=== PATIENT | male | born 1935 | race African-American/Black ===

== ENCOUNTER 2017-08-17 22:09 | Emergency (ER) | payer OTHER, MEDICAID ==
[~2017-08-17] VITALS: Ht 167.6 cm; Wt 53.1 kg
[~2017-08-17 22:09] MED LIST: ACETAMINOPHEN325 M1 ORAL; ATORVASTATIN CA20 MG ORAL; COZAAR50 MG ORAL; DONEPEZIL HCL10 MG ORAL; ECOTRIN81 MG ORAL; FLORINEF0.1 MG ORAL; HYDROXYZINE HCL25 M1 PO; LISINOPRIL10 MG ORAL; MIDODRINE HCL ORAL; MULTIVITAMINS1 EAC2 ORAL; PROSCAR5 MG ORAL; RANITIDINE HCL150 MG ORAL; SINEMET 25-1001 EAC1 ORAL; TAMSULOSIN HCL0.4 MG ORAL; XARELTO10 MG ORAL; [UNRECOGNIZED DRUG - OTHER]
[2017-08-17] MEDS ORDERED: SEROQUEL25 MG ORAL (22:30)
[2017-08-17 22:31] VITALS: BP 149/80
--- NOTE | 2017-08-17 22:54 | Emergency Room Report ---
History of Present Illness General Chief Complaint: Malfunctioning Gastric Tube Source: Family Member Present Illness HPI This is 81-year-old male with multiple medical problem. He has history of dementia also. He has a G-tube. Is brought in by his son for dislodgment of the G-tube. This happen multiple time the past. No bleeding. No other trauma. Onset today. Allergies: Coded Allergies: No Known Allergies (Verified , 03/19/15) Patient History Past Medical History: see triage record, old chart reviewed Past Surgical History: other Pertinent Family History: none Social History: Denies: smoking Immunizations: other Reviewed Nursing Documentation: PMH: Agreed, PSxH: Agreed Nursing Documentation-PMH Past Medical History: No History, Except For Hx Hypertension: Yes Hx Cancer: Yes - Laryngeal cancer Hx Gastrointestinal Problems: Yes - gtube History Of Psychiatric Problem: No - Parkinson's, Dementia Hx Dementia: Yes Hx Parkinson's Disease: Yes Hx Head Trauma: Yes - 2007 Hx Memory Loss: Yes Hx Dizziness: Yes Hx Syncope: Yes Review of Systems Eye: Denies: eye pain, blurred vision ENT: Denies: ear pain, nose congestion, throat swelling Respiratory: Denies: cough, shortness of breath Cardiovascular: Denies: chest pain, palpitations Gastrointestinal: Denies: abdominal pain, diarrhea, nausea, vomiting Musculoskeletal: Denies: back pain, joint pain Skin: Denies: rash Neurological: Denies: headache, numbness Endocrine: Denies: increased thirst, increased urine Hematologic/Lymphatic: Denies: easy bruising All Other Systems: negative except mentioned in HPI Physical Exam Vital Signs Date Time Temp Pulse Resp B/P (MAP) Pulse Ox O2 Delivery O2 Flow Rate FiO2 08/17/17 22:17 98.2 90 16 149/80 99 Room Air vitals normal Sp02 EP Interpretation: reviewed, normal General Appearance: well appearing, no apparent distress, alert, Chronically Ill Head: normocephalic, atraumatic Eyes: bilateral eye PERRL, bilateral eye EOMI ENT: hearing grossly normal, normal pharynx Neck: full range of motion, supple, no meningismus Respiratory: chest non-tender, lungs clear, normal breath sounds Cardiovascular #1: regular rate, rhythm, no murmur Gastrointestinal: normal bowel sounds, non tender, no mass, no organomegaly, no bruit, non-distended, other - G-tube siteclean. No bleeding. Musculoskeletal: back normal Neurologic: grossly normal Psychiatric: mood/affect normal Skin: warm/dry Procedures Additional Procedure Procedure Narrative Procedure: G-tube placement Indication: G-tube dislodgment Description: I placed a 20 [place] G-tube in patient without difficulty. Tolerated seizure without a problem. Balloon inflated. Stopcock inserted to Gtube. KUB with gastrograffin ordered. Medical Decision Making Diagnostic Impression: Primary Impression: Encounter for feeding tube placement Additional Impression: Malfunction of gastrostomy tube ER Course Patient with dislodgment of his G-tube. No complication. Inserted without problem. No extravasation on KUB. We'll discharge home. Other X-Ray Diagnostic Results Other X-Ray Diagnostic Results : X-Ray ordered: KUB # of Views/Limited Vs Complete: 1 View Indication: Other - G-tube placement EP Interpretation: Yes Interpretation: no dislocation, no soft tissue swelling, no fractures, other - No extravasation Impression: Other - G-tube in satisfactory position Electronically Signed by: Electronically signed by Dread Mireles MD Last Vital Signs Date Time Temp Pulse Resp B/P (MAP) Pulse Ox O2 Delivery O2 Flow Rate FiO2 08/17/17 22:31 98.2 90 16 149/80 99 Room Air Status: improved Disposition: HOME, SELF-CARE Condition: Stable Patient Instructions: Gastrostomy Tube Home Guide, Adult Additional Instructions: Followup with your doctor as needed. Return for any concern. DREAD MIRELES M.D. Aug 17, 2017 22:54
[2017-08-17 23:21] VITALS: BP 131/72
[2017-08-17 23:26] VITALS: BP 131/72
--- NOTE | 2017-08-18 09:41 | Diagnostic Imaging Report ---
Indication: Status post gastrostomy tube placement Technique: Supine abdomen following water-soluble contrast injection via the gastrostomy tube. Comparison: 10/23/16 Findings: There is contrast within the stomach confirming intraluminal positioning of the gastrostomy. There is no obvious extravasation. Bowel gas pattern is nonobstructive. Impression: Contrast within the stomach confirming intraluminal positioning of the gastrostomy.
== END 2017-08-17 23:26 | disposition home or self-care (01) ==
LOC: EMR 22:50
DX: Z43.1 Encounter for attention to gastrostomy (principal); I10 Essential (primary) hypertension; G31.83 Neurocognitive disorder with Lewy bodies; F02.80 Dementia in other diseases classified elsewhere, unspecified severity, without behavioral disturbance, psychotic disturbance, mood disturbance, and anxiety; Z85.21 Personal history of malignant neoplasm of larynx
CPT/HCPCS: 43760; 74000; 99284

== ENCOUNTER 2018-01-20 10:45 | Emergency (ER) | payer OTHER, MEDICAID ==
[~2018-01-20] VITALS: Ht 167.6 cm; Wt 54.4 kg
[~2018-01-20 10:45] MED LIST changes: +SEROQUEL25 MG ORAL
[2018-01-20 11:04] VITALS: BP 151/78
--- NOTE | 2018-01-20 11:26 | Emergency Room Report ---
History of Present Illness General Chief Complaint: General Complaint Source: Family Member, Caregiver Present Illness HPI [id number] non-verbal pulled out Gtube [address] in stoma Patient was fed this morning Son states he is "very healthy", no other complaints Non verbal at baseline No vomiting, diarrhea, fever/chills Here multiple times previously for Gtube replacement Allergies: Coded Allergies: No Known Allergies (Verified , 03/19/15) Patient History Past Medical History: see triage record, old chart reviewed Past Surgical History: none Pertinent Family History: none Social History: Denies: smoking, alcohol use, drug use Immunizations: UTD Reviewed Nursing Documentation: PMH: Agreed, PSxH: Agreed Nursing Documentation-PMH Past Medical History: No History, Except For Hx Hypertension: Yes Hx Cancer: Yes - Laryngeal cancer Hx Gastrointestinal Problems: Yes - gtube Hx Dementia: Yes Hx Parkinson's Disease: Yes Hx Head Trauma: Yes - 2007 Hx Memory Loss: Yes Hx Dizziness: Yes Hx Syncope: Yes Review of Systems All Other Systems: limited - non-verbal Physical Exam Vital Signs Date Time Temp Pulse Resp B/P (MAP) Pulse Ox O2 Delivery O2 Flow Rate FiO2 01/20/18 10:59 97.6 67 24 151/78 97 Room Air 97.5 Sp02 EP Interpretation: reviewed, normal General Appearance: normal inspection, well appearing, no apparent distress, alert, GCS 15, non-toxic Head: normocephalic, atraumatic Eyes: bilateral eye PERRL, bilateral eye EOMI ENT: normal ENT inspection, hearing grossly normal, normal pharynx, no angioedema, TMs + canals normal, uvula midline, moist mucus membranes Neck: normal inspection, full range of motion, supple, thyroid normal, no meningismus, no bony tend Respiratory: normal inspection, lungs clear, normal breath sounds, no rhonchi, no respiratory distress, no retraction, no accessory muscle use, no wheezing, speaking full sentences Cardiovascular #1: regular rate, rhythm, no edema, no JVD, normal capillary refill Gastrointestinal: normal inspection, normal bowel sounds, non tender, soft, no mass, no peritonitis, non-distended, no guarding, no hernia, no pulsatile mass, other - GTube stoma visualized, is patent. No active bleeding or site cellulitis Genitourinary: no CVA tenderness Musculoskeletal: normal inspection, back normal, normal range of motion, no calf tenderness, pelvis stable, Jerardo's Sign negative Neurologic: normal inspection, alert, oriented x3, responsive, paper cone machine tender III-XII nml as tested, motor strength/tone normal, cerebellar normal, normal gait, speech normal Psychiatric: normal inspection, judgement/insight normal, mood/affect normal, no suicidal/homicidal ideation, no delusions Skin: normal inspection, normal color, no rash Lymphatic: normal inspection, no adenopathy Procedures Additional Procedure Procedure Narrative Patient positioned at 45 degrees Bandage removed Area cleaned 20F Gtube placed easily with feeds coming out of tube 20cc balloon inflated Abd xray confirmed tube placement Medical Decision Making Diagnostic Impression: Primary Impression: Attention to G-tube ER Course VSS, afebrile Well appearing, not septic Gtube replaced ER course: Patient has remained stable during ED stay. Disposition: Patient is to be discharged to home. Patient is instructed to follow up with their primary care doctor within 5 days. Strict return precautions discussed with patient such as fever, chills, worsening/severe pain, nausea, vomiting, which may indicate severe illness. Patient verbalizes understanding and agrees with plan. Please note that this Emergency Department Report was dictated using [employer]thersysentry level administrative assistant technology software, occasionally this can lead to erroneous entry secondary to interpretation by the dictation equipment Other X-Ray Diagnostic Results Other X-Ray Diagnostic Results : X-Ray ordered: Abdomen # of Views/Limited Vs Complete: 1 View Indication: Other - Gtube replacement EP Interpretation: Yes Interpretation: nonspecific bowel gas, no sbo, other - Gtube in stomach Impression: No acute disease Electronically Signed by: Dr Pamela Sullivan mD Last Vital Signs Date Time Temp Pulse Resp B/P (MAP) Pulse Ox O2 Delivery O2 Flow Rate FiO2 01/20/18 11:04 97.6 67 18 151/78 Room Air 97.6 01/20/18 10:59 97 Referrals: [facility],REFERRING (PCP) PAMELA SULLIVAN M.D. Jan 20, 2018 11:26
[2018-01-20 11:38] VITALS: BP 152/63
--- NOTE | 2018-01-20 11:47 | Diagnostic Imaging Report ---
Indication: Gastric ostomy tube placement Technique: XRAY Abdomen 1v Comparison: 08/17/2017. Findings: Single view of the abdomen with contrast injected in a gastrostomy tube fills the stomach and small bowel. Bowel gas pattern is normal. Degenerative changes noted in the spine. Impression: Gastrostomy tube is in the stomach. There is no leak.
== END 2018-01-20 11:42 | disposition home or self-care (01) ==
LOC: EMR 11:15
DX: Z43.1 Encounter for attention to gastrostomy (principal); I10 Essential (primary) hypertension; Z85.21 Personal history of malignant neoplasm of larynx; G20 Parkinson's disease; F02.80 Dementia in other diseases classified elsewhere, unspecified severity, without behavioral disturbance, psychotic disturbance, mood disturbance, and anxiety
CPT/HCPCS: 43760; 74018; 99284

== ENCOUNTER 2018-08-06 15:49 | Inpatient (IN) | payer OTHER, MEDICAID ==
[~2018-08-06] VITALS: Ht 165.1 cm; Wt 76.0 kg
[2018-08-06] VITALS (8 sets, daily range): BP systolic 83–125; BP diastolic 54–84
[2018-08-06] MEDS ORDERED: QUETIAPINE FUMA25 MG ORAL (16:00)
[2018-08-06] MEDS ORDERED: SINEMET 25-1001 EAC1 ORAL (16:00)
[2018-08-06] MEDS ORDERED: NS 1000ml 1,700 ML IVLG ONE (16:15)
[2018-08-06] MEDS ORDERED: Acetaminophen 650mg/20.3ml NG ONE (16:30)
--- NOTE | 2018-08-06 16:35 | Diagnostic Imaging Report ---
Indication: Dyspnea Comparison: 06/10/2015 A single view chest radiograph was obtained. Findings: There is a hazy opacity involving the left lung base consistent with a pleural effusion probably moderate to large. The heart is mildly enlarged but probably stable. The right lung is clear. IMPRESSION: Development of a moderate to large left pleural effusion
[2018-08-06 16:37] LABS: HEMATOCRIT 36.6 % (42.0-52.0); HEMOGLOBIN 12.2 G/DL (14.2-18.0); MEAN CORPUSCULAR VOLUME 86 FL (80-99); PLATELET COUNT 507 K/UL (150-450); RED BLOOD COUNT 4.27 M/UL (4.70-6.10); RED CELL DISTRIBUTION WIDTH 13.2 % (11.6-14.8); WHITE BLOOD COUNT 21.5 K/UL (4.8-10.8)
[2018-08-06] MEDS: Cefepime HCl 1 GM in NS 55 ML IV SCH ×2 (16:46→17:52)
[2018-08-06 17:11] LABS: ANION GAP 10 mmol/L (5-15); BLOOD UREA NITROGEN 43 mg/dL (7-18); CALCIUM 9.6 MG/DL (8.5-10.1); CARBON DIOXIDE 33 MMOL/L (21-32); CHLORIDE 94 MMOL/L (98-107); CREATININE 1.7 MG/DL (0.55-1.30); SODIUM 137 MMOL/L (136-145)
[2018-08-06 17:36] LABS: ALANINE AMINOTRANSFERASE 53 U/L (12-78); ALBUMIN 1.5 G/DL (3.4-5.0); ALBUMIN/GLOBULIN RATIO 0.2 (1.0-2.7); ALKALINE PHOSPHATASE 138 U/L (46-116); ASPARTATE AMINO TRANSFERASE 78 U/L (15-37); CKMB < 0.5 NG/ML (0.0-3.6); CREATINE KINASE 40 U/L (26-308)
[2018-08-06] MEDS ORDERED: Succinylcholine 20mg/ml 10ml vial ONE (17:50)
[2018-08-06] MEDS ORDERED: Etomidate 40mg/20ml Inj IV ONE (17:50)
[2018-08-06] MEDS ORDERED: Acetaminophen 650 MG SUPP RECTAL ONE (19:00)
[2018-08-06 20:25] LABS: APPEARANCE,URINE CLOUDY; BILIRUBIN, URINE 1+ (NEGATIVE); GLUCOSE, URINE (UA) NEGATIVE (NEGATIVE); KETONES,URINE 1+ (NEGATIVE); LEUKOCYTE ESTERASE ,URINE 2+ (NEGATIVE); NITRITE,URINE POSITIVE (NEGATIVE); PH,URINE 5 (4.5-8.0); PROTEIN,URINE 3+ (NEGATIVE); UROBILINOGEN,URINE 4 MG/DL (0.0-1.0)
[2018-08-06 20:27] LABS: COLOR,URINE AMBER
--- NOTE | 2018-08-06 22:22 | Emergency Room Report ---
History of Present Illness General Chief Complaint: Altered Level of Consciousness Source: Family Member Present Illness HPI This patient is brought in from home by his sons. He has a history of Parkinson 's disease and laryngeal cancer. He is unable to swallow and has a PEG tube. Today, the son noticed that he was not his usual self or alertness. Also, he vomited feeding tube fluid. He states he was less responsive. There are no other complaints. The patient is unable to give a history. Allergies: Coded Allergies: No Known Allergies (Verified , 03/19/15) Patient History Past Medical History: see triage record, CVA/TIA, dementia, other - Parkinson' s Dz, Laryngeal CA Past Surgical History: other - PEG, laryngectomy Social History: Denies: smoking, alcohol use, drug use Reviewed Nursing Documentation: PMH: Agreed; PSxH: Agreed Nursing Documentation-PMH Past Medical History: No History, Except For Hx Cardiac Problems: Yes - hypercholesteremia Hx Hypertension: Yes Hx Cancer: Yes - Laryngeal cancer Hx Gastrointestinal Problems: Yes - prostate problems Hx Neurological Problems: Yes - Alzheimers Hx Dementia: Yes Hx Parkinson's Disease: Yes Hx Head Trauma: Yes - 2007 Hx Memory Loss: Yes Hx Dizziness: Yes Hx Syncope: Yes Review of Systems All Other Systems: negative except mentioned in HPI Physical Exam Vital Signs Date Time Temp Pulse Resp B/P (MAP) Pulse Ox O2 Delivery O2 Flow Rate FiO2 08/06/18 15:54 100.3 159 24 83/55 92 Room Air 100.2 08/06/18 16:40 4.0 36 Sp02 EP Interpretation: reviewed, normal General Appearance: no apparent distress, GCS 15, non-toxic, Chronically Ill Head: normocephalic, atraumatic Eyes: bilateral eye normal inspection ENT: normal pharynx, no angioedema Neck: full range of motion, supple/symm/no masses Respiratory: chest non-tender, no retraction, no accessory muscle use, crackles , rhonchi, other - Tachypnea Cardiovascular #1: no edema, tachycardia Gastrointestinal: normal bowel sounds, non tender, soft, non-distended, no guarding, no rebound, other - PEG in place Rectal: deferred Musculoskeletal: normal inspection, other - At baseline Neurologic: alert, grossly normal - Non-focal Psychiatric: mood/affect normal Skin: warm/dry, well hydrated, other - See RN skin exam Medical Decision Making Diagnostic Impression: Primary Impression: Severe sepsis Additional Impressions: Pleural effusion Fever Lactic acid acidosis DONNIE (acute kidney injury) UTI (urinary tract infection) ER Course The patient presents with severe sepsis. The patient presented with tachycardia with a heart rate in the 160s. He was also hypotensive with systolic blood pressures in the 70s and low 80s. He was tachypneic with a rapid respiratory rate and increased work of breathing. He was given aggressive IV fluids and broad-spectrum antibiotics. He did have a decline in his heart rate and his blood pressure was responsive to IV fluid resuscitation. He is found to have a pleural effusion. I'm unsure if this is infectious in etiology versus malignant an etiology. This patient has a very poor prognosis. He is admitted to the ICU. This patient is critically ill. This patient required complex medical decision- making, aggressive intervention, extensive laboratory workup and monitoring. Critical care time: 40 minutes. Laboratory Tests Test 08/06/18 16:10 08/06/18 17:30 08/06/18 19:22 08/06/18 21:49 White Blood Count 21.5 K/UL (4.8-10.8) H Red Blood Count 4.27 M/UL (4.70-6.10) L Hemoglobin 12.2 G/DL (14.2-18.0) L Hematocrit 36.6 % (42.0-52.0) L Mean Corpuscular Volume 86 FL (80-99) Mean Corpuscular Hemoglobin 28.5 PG (27.0-31.0) Mean Corpuscular Hemoglobin Concent 33.3 G/DL (32.0-36.0) Red Cell Distribution Width 13.2 % (11.6-14.8) Platelet Count 507 K/UL (150-450) H Mean Platelet Volume 5.5 FL (6.5-10.1) L Neutrophils (%) (Auto) % (45.0-75.0) Lymphocytes (%) (Auto) % (20.0-45.0) Monocytes (%) (Auto) % (1.0-10.0) Eosinophils (%) (Auto) % (0.0-3.0) Basophils (%) (Auto) % (0.0-2.0) Differential Total Cells Counted 100 Neutrophils % (Manual) 79 % (45-75) H Lymphocytes % (Manual) 8 % (20-45) L Monocytes % (Manual) 4 % (1-10) Eosinophils % (Manual) 0 % (0-3) Basophils % (Manual) 2 % (0-2) Band Neutrophils 7 % (0-8) Platelet Estimate Increased H Platelet Morphology Normal Red Blood Cell Morphology Normal Sodium Level 137 MMOL/L (136-145) Potassium Level 4.0 MMOL/L (3.5-5.1) Chloride Level 94 MMOL/L (98-107) L Carbon Dioxide Level 33 MMOL/L (21-32) H Anion Gap 10 mmol/L (5-15) Blood Urea Nitrogen 43 mg/dL (7-18) H Creatinine 1.7 MG/DL (0.55-1.30) H Estimate Glomerular Filtration Rate mL/min (>60) Glucose Level 257 MG/DL (74-106) H Lactic Acid Level 6.70 mmol/L (0.4-2.0) H 4.10 mmol/L (0.66-2.22) H Calcium Level 9.6 MG/DL (8.5-10.1) Total Bilirubin 1.0 MG/DL (0.2-1.0) Aspartate Amino Transferase (AST) 78 U/L (15-37) H Alanine Aminotransferase (ALT) 53 U/L (12-78) Alkaline Phosphatase 138 U/L (46-116) H Total Creatine Kinase 40 U/L (26-308) Creatine Kinase MB < 0.5 NG/ML (0.0-3.6) Creatine Kinase MB Relative Index 1.2 Troponin I 0.000 ng/mL (0.000-0.056) Total Protein 8.7 G/DL (6.4-8.2) H Albumin 1.5 G/DL (3.4-5.0) L Globulin 7.2 g/dL Albumin/Globulin Ratio 0.2 (1.0-2.7) L Urine Color Jeanette Urine Appearance Cloudy Urine pH 5 (4.5-8.0) Urine Specific [place] 1.020 (1.005-1.035) Urine Protein 3+ (NEGATIVE) H Urine Glucose (UA) Negative (NEGATIVE) Urine Ketones 1+ (NEGATIVE) H Urine Blood 5+ (NEGATIVE) H Urine Nitrite Positive (NEGATIVE) H Urine Bilirubin 1+ (NEGATIVE) H Urine Ictotest Positive (NEGATIVE) Urine Urobilinogen 4 MG/DL (0.0-1.0) H Urine Leukocyte Esterase 2+ (NEGATIVE) H Urine RBC Tntc /HPF (0 - 0) H Urine WBC 5-10 /HPF (0 - 0) H Urine Squamous Epithelial Cells Occasional /LPF Urine Bacteria Moderate /HPF (NONE) H Arterial Blood pH 7.517 (7.350-7.450) Arterial Blood Partial Pressure CO2 36.3 mmHg (35.0-45.0) Arterial Blood Partial Pressure O2 80.2 mmHg (75.0-100.0) Arterial Blood HCO3 28.8 mmol/L (22.0-26.0) H Arterial Blood Oxygen Saturation 96.0 % (92.0-98.0) Arterial Blood Base Excess 5.6 Malvin Test Positive EKG Diagnostic Results Rate: tachycardiac Rhythm: other - S.tachycardia ST Segments: no acute changes Rhythm Strip Diag. Results EP Interpretation: yes Rate: 150's Rhythm: no PVC's, no ectopy, other - S.tachycardia Chest X-Ray Diagnostic Results Chest X-Ray Diagnostic Results : Chest X-Ray Ordered: Yes # of Views/Limited/Complete: 1 View Indication: Shortness of Breath Interpretation: other - Large L. pleural effusion Impression: Other - See above Electronically Signed by: Kristopher Other X-Ray Diagnostic Results Other X-Ray Diagnostic Results : X-Ray ordered: AAS # of Views/Limited Vs Complete: Complete EP Interpretation: Yes Interpretation: nonspecific bowel gas Impression: No acute disease Electronically Signed by: Kristopher Last Vital Signs Date Time Temp Pulse Resp B/P (MAP) Pulse Ox O2 Delivery O2 Flow Rate FiO2 08/06/18 21:50 117 35 100 Full Face 28 08/06/18 21:00 119/84 (96) 08/06/18 20:00 97.9 97.9 08/06/18 17:13 4.0 Disposition: ADMITTED INPATIENT Condition: Critical Referrals: [facility],REFERRING (PCP) Elisa Zhang DO Aug 06, 2018 22:22
[2018-08-06] MEDS: Piperacillin/Tazobactam 3.375 GM in D5W 110 ML IVPB SCH (22:54)
[2018-08-06] MEDS: Heparin 5000 units/ml inj SUBQ SCH (22:57)
[2018-08-06] MEDS: D5NS 1,000 ML IV SCH (22:58)
[2018-08-07] VITALS (24 sets, daily range): BP systolic 99–155; BP diastolic 41–96
[2018-08-07] MEDS: Vancomycin 1250mg/D5W 250ml 250 ML IVPB SCH ×2 (00:32→23:45)
[2018-08-07 06:02] LABS: HEMATOCRIT 27.5 % (42.0-52.0); HEMOGLOBIN 9.2 G/DL (14.2-18.0); MEAN CORPUSCULAR VOLUME 86 FL (80-99); PLATELET COUNT 370 K/UL (150-450); RED BLOOD COUNT 3.21 M/UL (4.70-6.10); RED CELL DISTRIBUTION WIDTH 13.3 % (11.6-14.8)
[2018-08-07 06:07] LABS: WHITE BLOOD COUNT 26.8 K/UL (4.8-10.8)
--- NOTE | 2018-08-07 06:15 | Consultation ---
DATE OF CONSULTATION: 08/06/2018 CONSULTING PHYSICIAN: Jeremy Fried M.D. REQUESTING PHYSICIAN: Harjeet Baptiste M.D. REASON FOR CONSULTATION: Severe sepsis with shock, tachycardia, and lactic acidosis. HISTORY OF PRESENT ILLNESS: This elderly male resides with family members and was noted to be increasingly withdrawn and lethargic today. He had episodes of vomiting and apparently seem somewhat short of breath. He did not have any noted fevers, chills, cough, or complaints of chest pain. He was brought to the emergency room where he was noted to have abnormal vital signs including blood pressure of 83/55, heart rate of 159, and respiratory rate of 24 with a temperature of 100.3. He was volume resuscitated with IV access obtained and placed on BiPAP support. He was admitted to the intensive care unit based on further diagnostic studies. I have been asked to assist with further cardiovascular care. 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 ALLERGIES: None. FAMILY HISTORY: Noncontributory. SOCIAL HISTORY: Prior use of alcohol in moderate quantities. No smoking or substance abuse. MEDICATIONS: Prior to admission, reviewed and reconciled. REVIEW OF SYSTEMS: Otherwise not obtainable from the patient. Cardiac history is notable for an echocardiogram done last several years ago revealed normal ejection fraction, mild degenerative valve disease with concentric hypertrophy, and a diastolic relaxation abnormality. There is no history of flow-limiting coronary artery disease or sustained arrhythmias. The patient is presumably on anticoagulation for history of blood clots. PHYSICAL EXAMINATION: VITAL SIGNS: Initial vitals as noted above. Subsequently, blood pressure 119/84, pulse 105, and respirations 30. HEENT: Male pattern balding. Temporal wasting. Pale conjunctivae. Anicteric sclerae. Dry mucous membranes. NECK: Supple. Some accessory muscle use. LUNGS: With diminished breath sounds on the left. Scattered rhonchi. CARDIAC: Regular rhythm. Rapid rate. Normal S1 and S2 with a fourth heart sound. ABDOMEN: Soft and nontender with G-tube intact. EXTREMITIES: Without edema. SKIN: Dry. NEUROLOGIC: The patient is responsive to name, but presently nonverbal. RADIOLOGIC AND LABORATORY DATA: EKG reveals sinus tachycardia. No acute ST changes. Chest x-ray with large left pleural effusion and possible infiltrate. Troponin is 0. Albumin 1.5. White count 21.5 and hemoglobin 12.2. Sodium 137, potassium 4, bicarbonate 33, BUN 43, and creatinine 1.7. Lactic acid 6.7 and repeated 4.1. Urinalysis with 2+ leukocyte esterase, too numerous to count red cells, and 5 to 10 white cells. ABG - pH 7.51, pCO2 of 86, and pO2 of 80. IMPRESSION: 1. Sepsis with hypovolemic shock. 2. Secondary sinus tachycardia. 3. Lactic acidosis, probable pneumonia with parapneumonic effusion. 4. History of Parkinson disease. 5. Coagulopathy due to rivaroxaban therapy presumably for history of deep venous thrombosis. 6. Parkinson disease's with dementia. 7. Dysphagia with gastrostomy tube. 8. History of benign prostatic hypertrophy. 9. History of adrenocortical insufficiency, on Florinef. 10. Acute respiratory insufficiency with hypoxia and metabolic alkalosis. PLAN: 1. Volume resuscitation. 2. BiPAP support. 3. Hold rivaroxaban. 4. Possible thoracentesis. 5. Maintain Florinef. 6. Continue Sinemet. 7. Stress ulcer prophylaxis. 8. DVT prophylaxis with subcutaneous heparin while off rivaroxaban. 9. Hold feedings for now. 10. Metabolic profile. 11. Condition critical. 12. Prognosis is guarded. 13. Serial lactic acid evaluations have been requested. Jeremy Fried M.D. DR: WHITNEY JOB#: [id number] CC:
[2018-08-07 06:26] LABS: ALANINE AMINOTRANSFERASE 79 U/L (12-78); ALBUMIN 1.3 G/DL (3.4-5.0); ALBUMIN/GLOBULIN RATIO 0.2 (1.0-2.7); ALKALINE PHOSPHATASE 106 U/L (46-116); ANION GAP 8 mmol/L (5-15); ASPARTATE AMINO TRANSFERASE 62 U/L (15-37); BLOOD UREA NITROGEN 49 mg/dL (7-18); CALCIUM 8.4 MG/DL (8.5-10.1); CARBON DIOXIDE 31 MMOL/L (21-32); CHLORIDE 101 MMOL/L (98-107); CREATININE 1.8 MG/DL (0.55-1.30); POTASSIUM 3.5 MMOL/L (3.5-5.1); SODIUM 140 MMOL/L (136-145)
[2018-08-07] MEDS: Tamsulosin 0.4mg cap ORAL SCH ×2 (06:40→21:14)
[2018-08-07] MEDS: Piperacillin/Tazobactam 3.375 GM in D5W 110 ML IVPB SCH ×3 (06:41→21:34)
[2018-08-07] MEDS: D5NS 1,000 ML IV SCH ×2 (06:43→16:30)
[2018-08-07] MEDS: Heparin 5000 units/ml inj SUBQ SCH ×2 (08:11→21:17)
--- NOTE | 2018-08-07 08:31 | Diagnostic Imaging Report ---
Indication: Pain, vomiting Technique: Supine and upright views of the abdomen Comparison: January 20, 2018 gastrostomy study Findings: There is a gastrostomy in place. Bowel gas pattern is unremarkable. No gaseous distention of large or small bowel, significant air-fluid levels, or free intraperitoneal air. No unusual masses or calcifications Impression: No acute process
[2018-08-07] MEDS: Pantoprazole Inj IVP SCH (08:45)
--- NOTE | 2018-08-07 09:00 | History & Physical ---
History and Physical History & Physicial dict pneumonia w septic shock L effusion dementia PD Harjeet Baptiste MD Aug 07, 2018 09:00
[2018-08-07 09:30] LABS: INR 1.3 (0.9-1.1)
--- NOTE | 2018-08-07 11:18 | Pre-Procedure Note/Attestation ---
Pre-Procedure Note/Attestation Complete Prior to Procedure Planned Procedure: left Procedure Narrative: US guided thoracentesis Indications for Procedure Pre-Operative Diagnosis: Pleural effusion Attestation I attest that I discussed the nature of the procedure; its benefits; risks and complications; and alternatives (and the risks and benefits of such alternatives ), prior to the procedure, with the patient (or the patient's legal accounting representative). I attest that, if there was a reasonable possibility of needing a blood transfusion, the patient (or the patient's legal accounting representative) was given the [facility] standardized written summary, pursuant to the Jared Erika Blood Safety Act ([place] Health and Safety Code # 1645, as amended). I attest that I re-evaluated the patient just prior to the surgery and that there has been no change in the patient's H&P, except as documented below: Discussed with son by phone at 1118 on 08/07/18 Gilles Romero MD Aug 07, 2018 11:18
[2018-08-07] MEDS: NovoLOG Insulin Flexpen SUBQ SCH ×3 (11:30→21:25)
--- NOTE | 2018-08-07 12:54 | Brief Operative Note ---
Immediate Post Operative Note Operative Note Pre-op Diagnosis: Pleural effusion Procedure: thoracentesis Post-op Diagnosis: same as pre-op Findings: consistent w/pre-op dx studies Surgeon: Cookie ROMERO Anesthesia: local Specimen: yes - fluid sent to lab Complications: none Condition: stable Fluids: none Implant(s) used?: No Gilles Romero MD Aug 07, 2018 12:54
--- NOTE | 2018-08-07 14:37 | Diagnostic Imaging Report ---
Indications: Pleural effusion Technique: Ultrasound used to localize optimal puncture site. Sterile prepping and draping left chest. Local anesthesia with 1% lidocaine. Under real-time ultrasound guidance, puncture pleural space using thoracentesis needle. Stylet removed. Catheter placed to vacuum bottle suction. Total 100 milliliters of fluid aspirated. Patient tolerated procedure well, without immediate complication. Findings: Followup sonography demonstrates residual loculated appearing pleural fluid. Impression: Successful ultrasound-guided thoracentesis, yielding 1100 milliliters of fluid. No definite residual fluid post thoracentesis, likely loculated
--- NOTE | 2018-08-07 14:53 | Diagnostic Imaging Report ---
Indication: Status post thoracentesis Technique: One view of the chest Comparison: 08/06/2018 Findings: Interim slight apparent decrease in size of previously demonstrated large left pleural effusion. No gross pneumothorax. Right lung and pleural space remain clear Impression: Only slight apparent decrease in size of left pleural effusion, despite recent large volume (1.1 L) thoracentesis. Residual findings most likely represent residual loculated pleural fluid demonstrated on localizing sonographic images. No pneumothorax
[2018-08-07] MEDS: Levodopa/Carbidopa 25/100 tab GT SCH (17:49)
--- NOTE | 2018-08-07 18:30 | History and Physical Report ---
DATE OF ADMISSION: 08/06/2018 CHIEF COMPLAINT: Altered mental status. HISTORY OF PRESENT ILLNESS: The patient is an 82-year-old man, who was brought in from home by his son because of lethargy. He is normally not verbally responsive due to an old stroke and has a G-tube in place. He was found to have septic shock with temperature over 102 degrees, tachycardia and lactic acidosis likely due to left-sided pneumonia and pleural effusion. He was admitted to intensive care and placed on BiPAP. PAST MEDICAL HISTORY: The [facility] records are reviewed and are at odds with some of the history obtained by the emergency room physician. He has a history of hemorrhagic stroke, hyperlipidemia, Parkinson disease with dementia, G-tube feedings, malnutrition, and adrenocortical insufficiency. There is also a history of prostate hypertrophy. There is some question about laryngeal cancer and laryngectomy as well as possible DVT. There is no notation of these last 2 items in the [facility] records after review of his last physician visit in November 2017. HABITS: He is a past smoker and past alcohol user. ALLERGIES: None. MEDICATIONS: His [facility] records indicate aspirin, Lipitor, Sinemet, donepezil, finasteride, fludrocortisone, quetiapine, and tamsulosin. In addition records obtained by our pharmacy indicate Xarelto. REVIEW OF SYSTEMS: The patient apparently gets up to a chair daily. He does not respond to verbal stimuli. Otherwise, unable to obtain. Past echocardiogram showed normal ejection fraction, concentric LVH and diastolic dysfunction. PHYSICAL EXAMINATION: VITAL SIGNS: Temperature ranjith to 102.8 degrees. The blood pressure was as low as 83/55. Presently, the temperature and blood pressure are normal, the heart rate is regular tachycardia with sinus tachycardia seen on the monitor, respirations on BiPAP 27 to 30, but presently down to 18. GENERAL: The patient appears malnourished. HEENT: The head is normocephalic. NECK: No jugular venous distention. CHEST: Decreased breath sounds on the left side. CARDIAC: Rhythm is regular. Tachycardia. ABDOMEN: Soft and nontender. Liver and spleen not enlarged. The G-tube is in place. EXTREMITIES: Muscle wasting noted. No clubbing, cyanosis or edema. LABORATORY AND DIAGNOSTIC DATA: Chest x-ray shows a large left effusion and possible infiltrate. Urinalysis shows 5 to 10 white cells and many red cells. White count is 26,000 and hemoglobin is 9.2. Blood gases satisfactory. BUN and creatinine are elevated at 49 and 1.8. Blood sugar 245, put him on moderate sliding scale. Lactic acid is elevated at 6.0 and improved to 5.4. Albumin is 1.3. IMPRESSION: 1. Septic shock. 2. Dehydration with azotemia. 3. Left-sided pneumonia and pleural effusion. 4. Respiratory failure, requiring BiPAP. 5. Parkinson disease with dementia. 6. History of hemorrhagic stroke. 7. Possible history of DVT. 8. Diastolic dysfunction and LVH. 9. History of adrenocortical insufficiency. PLAN: The patient is getting intravenous fluids. His blood pressure is satisfactory without addition of vasopressors. We will obtain left thoracentesis and continue antibiotics. I will discuss Code Status with the family. Harjeet Baptiste M.D. DR: JIGAR JOB#: [id number] CC:
--- NOTE | 2018-08-07 19:17 | Cardiology Report ---
APPROVED REPORT EKG Measurement Heart [id number] Sinus tachycardia Otherwise normal ECG
[2018-08-07] MEDS ORDERED: D5NS 1,000 ML IV SCH (21:52)
[2018-08-08] VITALS (24 sets, daily range): BP systolic 92–181; BP diastolic 47–89
--- NOTE | 2018-08-08 01:00 | Progress Note ---
DATE: 08/07/2018 CARDIOLOGY PROGRESS NOTE SUBJECTIVE: The patient remains in the intensive care unit. He is status post thoracentesis. His blood pressure has stabilized. OBJECTIVE: VITAL SIGNS: Blood pressure 105/50, pulse 104, respirations 20, oxygen saturation 97% on 3 liters nasal cannula. He was on BiPAP support. LUNGS: Coarse breath sounds, diminished at the bases, left greater than right. HEART: Regular rhythm and rate. Normal S1, S2. ABDOMEN: Soft. EXTREMITIES: No edema. LABORATORY AND DIAGNOSTIC DATA: Chest x-ray reveals decrease in left pleural effusion with some residual loculated fluid, no pneumothorax. White count 26.8, hemoglobin 9.2. Lactic acid up to 7.2 earlier, now 3.5 Pro-natriuretic peptide 1200. B12, folate, and TSH within normal limits. Troponin negative. IMPRESSION: 1. Septic shock. 2. Community-acquired pneumonia with loculated pleural effusion, status post thoracentesis every 1 liter. 3. Chronic diastolic congestive heart failure. 4. Secondary sinus tachycardia. 5. Dementia due to Parkinson's disease. 6. Hypovolemia and dehydration, corrected. 7. Dysphagia with G-tube. PLAN: 1. Adjust intravenous fluids. 2. Continue antimicrobials. 3. Consider CAT scan of the chest. 4. Respiratory hygiene. 5. Nutrition by feeding tube. 6. No need for pressors. 7. DVT prophylaxis. 8. Stress ulcer prophylaxis. Jeremy Fried M.D. DR: CHUY JOB#: [id number] CC:
[2018-08-08] MEDS: Piperacillin/Tazobactam 3.375 GM in D5W 110 ML IVPB SCH ×3 (05:48→21:22)
[2018-08-08] MEDS: NovoLOG Insulin Flexpen SUBQ SCH ×4 (06:00→22:22)
[2018-08-08 06:40] LABS: HEMATOCRIT 29.5 % (42.0-52.0); HEMOGLOBIN 9.9 G/DL (14.2-18.0); MEAN CORPUSCULAR VOLUME 85 FL (80-99); PLATELET COUNT 377 K/UL (150-450); RED BLOOD COUNT 3.49 M/UL (4.70-6.10); RED CELL DISTRIBUTION WIDTH 13.7 % (11.6-14.8)
[2018-08-08 06:46] LABS: WHITE BLOOD COUNT 23.9 K/UL (4.8-10.8)
[2018-08-08 06:57] LABS: ALANINE AMINOTRANSFERASE 60 U/L (12-78); ALBUMIN 1.1 G/DL (3.4-5.0); ALBUMIN/GLOBULIN RATIO 0.2 (1.0-2.7); ALKALINE PHOSPHATASE 94 U/L (46-116); ANION GAP 7 mmol/L (5-15); ASPARTATE AMINO TRANSFERASE 44 U/L (15-37); BILIRUBIN,TOTAL 0.5 MG/DL (0.2-1.0); BLOOD UREA NITROGEN 37 mg/dL (7-18); CARBON DIOXIDE 31 MMOL/L (21-32); CHLORIDE 104 MMOL/L (98-107); CREATININE 1.3 MG/DL (0.55-1.30); POTASSIUM 3.1 MMOL/L (3.5-5.1); SODIUM 142 MMOL/L (136-145)
[2018-08-08] MEDS: Levodopa/Carbidopa 25/100 tab GT SCH ×2 (09:17→18:16)
[2018-08-08] MEDS: Pantoprazole Inj IVP SCH (09:17)
[2018-08-08] MEDS: Heparin 5000 units/ml inj SUBQ SCH ×2 (09:18→21:22)
[2018-08-08] MEDS: D5NS w/KCl 40mEq 1000ml 1,000 ML IV SCH (11:00)
--- NOTE | 2018-08-08 16:56 | Pulmonology Progress Note ---
Assessment/Plan Assessment/Plan 1. Septic shock. 2. Dehydration with azotemia. 3. Left-sided pneumonia and pleural effusion. 4. Respiratory failure, requiring BiPAP. 5. Parkinson disease with dementia. 6. History of hemorrhagic stroke. 7. Possible history of DVT. 8. Diastolic dysfunction and LVH. 9. History of adrenocortical insufficiency. no fevers thoracentesis 1100 cc; results pdg CXR still with loculated effusion CT chest ordered BUN/Cr better - cont IVF off BiPAP out of ICU disc w son - rec DNR, he will decide tube feeds tolerated well K low - rx prognosis guarded Subjective ROS Limited/Unobtainable: Yes Allergies: Coded Allergies: No Known Allergies (Verified , 03/19/15) Objective Last 24 Hour Vital Signs Date Time Temp Pulse Resp B/P (MAP) Pulse Ox O2 Delivery O2 Flow Rate FiO2 08/08/18 15:00 117 32 149/74 (99) 97 08/08/18 14:00 119 22 137/79 (98) 98 08/08/18 13:00 117 26 129/58 (81) 98 08/08/18 12:00 97.8 124 35 142/70 (94) 99 97.8 08/08/18 12:00 Nasal Cannula 2.0 08/08/18 12:00 112 08/08/18 11:00 118 33 92/72 (79) 100 08/08/18 10:00 115 35 141/69 (93) 99 08/08/18 09:00 114 23 158/64 (95) 100 08/08/18 08:00 114 08/08/18 08:00 98.8 125 22 181/82 (115) 96 98.8 08/08/18 08:00 Nasal Cannula 2.0 08/08/18 07:00 112 28 111/49 (69) 100 08/08/18 06:00 108 25 106/47 (66) 98 08/08/18 05:00 111 32 134/62 (86) 99 08/08/18 04:00 Bi-pap 28.0 08/08/18 04:00 97.8 123 31 127/62 (83) 97 97.8 08/08/18 04:00 123 08/08/18 03:00 108 30 95/51 (66) 97 08/08/18 02:00 121 31 148/64 (92) 99 08/08/18 01:00 125 25 110/89 (96) 98 08/08/18 00:00 98.3 110 28 105/56 (72) 98 98.3 08/08/18 00:00 Bi-pap 28.0 08/07/18 23:00 107 22 108/55 (72) 95 08/07/18 22:00 105 26 99/41 (60) 99 08/07/18 21:00 Bi-pap 28.0 08/07/18 21:00 103 24 107/54 (71) 98 08/07/18 20:00 98.7 99 22 107/59 (75) 99 98.7 08/07/18 20:00 112 08/07/18 19:41 100 16 Nasal Cannula 3.0 32 08/07/18 19:41 Nasal Cannula 3.0 32 08/07/18 19:41 97 Nasal Cannula 3.0 32 08/07/18 19:00 105 20 112/60 (77) 100 08/07/18 18:00 104 21 106/58 (74) 100 08/07/18 17:00 104 20 105/60 (75) 99 Intake and Output 08/07/18 08/08/18 19:00 07:00 Intake Total 1212.5 ml 1740.0 ml Output Total 440 ml 390 ml Balance 772.5 ml 1350.0 ml Intake Oral 0 ml Free Water 50 ml IV Total 1192.5 ml 1270.0 ml Tube Feeding 20 ml 420 ml Output Urine Total 440 ml 390 ml # Bowel Movements 1 General Appearance: WD/WN, no acute distress HEENT: atraumatic Respiratory/Chest: decreased breath sounds Cardiovascular: regular rhythm, tachycardia Abdomen: soft, non tender Microbiology Date/Time Source Procedure Growth Status 08/06/18 17:30 Blood Blood Culture - Preliminary NO GROWTH AFTER 24 HOURS Resulted 08/06/18 16:10 Blood Blood Culture - Preliminary NO GROWTH AFTER 24 HOURS Resulted 08/06/18 18:08 Nasal Nares MRSA Culture - Final NO METHICILLIN RESISTANT STAPH AUREUS... Complete 08/06/18 19:22 Urine,Clean Catch Urine Culture - Preliminary NO GROWTH AFTER 24 HOURS Resulted 08/06/18 18:08 Rectum VRE Culture - Final NO VANCOMYCIN RESISTANT ENTEROCOCCUS ... Resulted 08/06/18 18:08 Rectum Pending Resulted Laboratory Tests 08/07/18 17:45: Lactic Acid Level 3.50H 08/07/18 22:15: Lactic Acid Level 3.80H 08/08/18 06:16: Lactic Acid Level 4.10H, White Blood Count 23.9*H, Red Blood Count 3.49L, Hemoglobin 9.9L, Hematocrit 29.5L, Mean Corpuscular Volume 85, Mean Corpuscular Hemoglobin 28.5, Mean Corpuscular Hemoglobin Concent 33.7, Red Cell Distribution Width 13.7, Platelet Count 377, Mean Platelet Volume 5.6L, Neutrophils (%) (Auto) , Lymphocytes (%) (Auto) , Monocytes (%) (Auto) , Eosinophils (%) (Auto) , Basophils (%) (Auto) , Differential Total Cells Counted 100, Neutrophils % (Manual) 83H, Lymphocytes % (Manual) 3L, Monocytes % (Manual) 4, Eosinophils % (Manual) 0, Basophils % (Manual) 0, Band Neutrophils 10H, Platelet Estimate Adequate, Platelet Morphology Normal, Hypochromasia 1+, Sodium Level 142, Potassium Level 3.1L, Chloride Level 104, Carbon Dioxide Level 31, Anion Gap 7, Blood Urea Nitrogen 37H, Creatinine 1.3, Estimat Glomerular Filtration Rate , Glucose Level 195H, Calcium Level 8.0L, Total Bilirubin 0.5, Aspartate Amino Transf (AST/SGOT) 44H, Alanine Aminotransferase ( ALT/SGPT) 60, Alkaline Phosphatase 94, Total Protein 6.6, Albumin 1.1L, Globulin 5.5, Albumin/Globulin Ratio 0.2L 08/08/18 08:40: Lactic Acid Level 6.10H Current Medications Medications (Trade) Dose Ordered Sig/Eloy Route PRN Reason Start Time Stop Time Status Last Admin Dose Admin Carbidopa/Levodopa (Sinemet 25/100) 1 tab BID GT 08/07/18 18:00 09/06/18 17:59 08/08/18 09:17 Dextrose (Dextrose 50%) 25 ml STAT PRN IV Hypoglycemia 08/07/18 09:00 09/06/18 08:59 Dextrose (Dextrose 50%) 50 ml STAT PRN IV Hypoglycemia 08/07/18 09:00 09/06/18 08:59 Dextrose/ Electrolytes 1,000 ml @ 75 mls/hr [id number] IV 08/08/18 11:00 09/07/18 10:59 08/08/18 11:00 Finasteride (Proscar) 5 mg DAILY ORAL 08/07/18 09:00 09/06/18 08:59 08/08/18 09:17 Fludrocortisone Acetate (Florinef) 0.1 mg DAILY GT 08/07/18 09:00 09/06/18 08:59 08/08/18 09:17 Heparin Sodium (Porcine) (Heparin 5000 units/ml) 5,000 units EVERY 12 HOURS SUBQ 08/06/18 21:00 09/05/18 20:59 08/08/18 09:18 Insulin Aspart (NovoLOG) BEFORE MEALS AND HS SUBQ 08/07/18 11:30 09/06/18 11:29 08/08/18 11:30 Pantoprazole (Protonix) 40 mg DAILY IVP 08/07/18 09:00 09/06/18 08:59 08/08/18 09:17 Piperacillin Sod/ Tazobactam Sod 3.375 gm/Dextrose 110 ml @ 27.5 mls/hr EVERY 8 HOURS IVPB 08/06/18 22:00 08/11/18 21:59 08/08/18 14:00 Tamsulosin HCl (Flomax) 0.4 mg BEDTIME ORAL 08/07/18 04:45 09/06/18 04:44 08/07/18 21:14 Vancomycin HCl (Vanco rx to dose) 1 ea DAILY PRN MISC Per rx protocol 08/06/18 22:30 09/05/18 22:29 Vancomycin HCl/ Dextrose 250 ml @ 167 mls/hr Q24H IVPB 08/07/18 00:00 08/12/18 00:00 08/07/18 23:45 Harjeet Baptiste MD Aug 08, 2018 16:56
[2018-08-08] MEDS: Tamsulosin 0.4mg cap ORAL SCH (21:20)
[2018-08-09] VITALS (7 sets, daily range): BP systolic 97–157; BP diastolic 51–94
[2018-08-09] MEDS: D5NS w/KCl 40mEq 1000ml 1,000 ML IV SCH (00:52)
[2018-08-09] MEDS ORDERED: Vancomycin 750mg/NS 250ml 250 ML IVPB SCH ×2 (01:00→13:00)
[2018-08-09] MEDS ORDERED: D5NS w/KCl 40mEq 1000ml 1,000 ML IV SCH (02:45)
--- NOTE | 2018-08-09 03:30 | Progress Note ---
DATE: 08/08/2018 CARDIOLOGY PROGRESS NOTE SUBJECTIVE: The patient has defervesced. He is status post thoracentesis with 1100 mL removed. He still has a residual loculated effusion. CAT scan of the chest was requested and pending. Monitored rhythm, sinus, sinus tachycardia, atrial ectopy. OBJECTIVE: VITAL SIGNS: Blood pressure 149/74, pulse 117, respiratory rate 32. LUNGS: Diminished breath sounds. HEART: Regular rhythm. Rapid rate. Normal S1, S2. ABDOMEN: Soft. G-tube intact. EXTREMITIES: Trace edema. LABORATORY DATA: cultures are negative. Laboratories, white count 23.9, hemoglobin 9.9. Lactic acid 4.9. Potassium 3.1, BUN 37, creatinine 1.3. Albumin 1.1. IMPRESSION: 1. Lactic acidosis. 2. Sepsis. 3. Leukocytosis. 4. Hypokalemia. 5. Secondary sinus tachycardia. 6. Severe protein-calorie malnutrition. 7. Cerebrovascular disease with dementia. 8. Dysphagia with G-tube. PLAN: 1. Replace potassium. 2. Check magnesium. 3. Antimicrobials. 4. Follow up fluid studies. 5. Await CT scan of the chest. 6. DVT and stress ulcer prophylaxis. 7. Nutrition and protein supplement by feeding tube. 8. Beta-karie therapy. Jeremy Fried M.D. DR: Deanna JOB#: [id number] CC:
[2018-08-09 05:54] LABS: HEMATOCRIT 28.8 % (42.0-52.0); HEMOGLOBIN 9.3 G/DL (14.2-18.0); MEAN CORPUSCULAR VOLUME 87 FL (80-99); PLATELET COUNT 365 K/UL (150-450); RED BLOOD COUNT 3.31 M/UL (4.70-6.10); RED CELL DISTRIBUTION WIDTH 13.9 % (11.6-14.8)
[2018-08-09 05:57] LABS: ANION GAP 8 mmol/L (5-15); BLOOD UREA NITROGEN 37 mg/dL (7-18); CALCIUM 8.4 MG/DL (8.5-10.1); CARBON DIOXIDE 30 MMOL/L (21-32); CHLORIDE 111 MMOL/L (98-107); CREATININE 1.2 MG/DL (0.55-1.30); POTASSIUM 3.5 MMOL/L (3.5-5.1); SODIUM 148 MMOL/L (136-145)
[2018-08-09 05:59] LABS: WHITE BLOOD COUNT 23.3 K/UL (4.8-10.8)
[2018-08-09] MEDS: NovoLOG Insulin Flexpen SUBQ SCH ×5 (06:42→21:07)
[2018-08-09] MEDS: Piperacillin/Tazobactam 3.375 GM in D5W 110 ML IVPB SCH ×3 (07:32→22:45)
[2018-08-09] MEDS ORDERED: Aspirin EC 81mg tab ORAL SCH ×2 (09:00)
[2018-08-09] MEDS ORDERED: Metoprolol 25mg tab GT SCH (09:00)
[2018-08-09] MEDS ORDERED: Levodopa/Carbidopa 25/100 tab ORAL SCH ×4 (09:00)
[2018-08-09] MEDS ORDERED: Midodrine 10mg tab ORAL SCH (09:00)
[2018-08-09] MEDS: Heparin 5000 units/ml inj SUBQ SCH ×2 (09:11→21:05)
[2018-08-09] MEDS: Pantoprazole Inj IVP SCH (09:12)
[2018-08-09] MEDS: Metoprolol 25mg tab GT SCH ×2 (09:13→21:02)
[2018-08-09] MEDS: Lisinopril 20mg tab ORAL SCH (09:14)
[2018-08-09] MEDS: Donepezil 10mg tab ORAL SCH (09:14)
[2018-08-09] MEDS: Levodopa/Carbidopa 25/100 tab GT SCH ×2 (09:14→17:41)
[2018-08-09] MEDS ORDERED: Lidocaine 1% Plain 30 ml INJ PRN (11:15)
[2018-08-09] MEDS ORDERED: Heparin 2000 units/Ns 1000ml INJ PRN (11:15)
[2018-08-09] MEDS: Aspirin Baby 81mg ORAL SCH (12:38)
--- NOTE | 2018-08-09 12:58 | Pulmonology Progress Note ---
Assessment/Plan Assessment/Plan 1. Septic shock. 2. Dehydration with azotemia. 3. Left-sided pneumonia and pleural effusion. 4. Respiratory failure, requiring BiPAP. 5. Parkinson disease with dementia. 6. History of hemorrhagic stroke. 7. Possible history of DVT. 8. Diastolic dysfunction and LVH. 9. History of adrenocortical insufficiency. no fevers lethargic - change Seroquel to prn thoracentesis 1100 cc; results still pdg CT chest pdg BUN/Cr better - stable Na high - IV adjusted disc w son - rec DNR, never called me back tube feeds tolerated well prognosis guarded Subjective ROS Limited/Unobtainable: Yes Allergies: Coded Allergies: No Known Allergies (Verified , 03/19/15) Objective Last 24 Hour Vital Signs Date Time Temp Pulse Resp B/P (MAP) Pulse Ox O2 Delivery O2 Flow Rate FiO2 08/09/18 09:26 Nasal Cannula 2.0 28 08/09/18 09:25 99 Nasal Cannula 2.0 28 08/09/18 09:22 121 20 Nasal Cannula 2.0 28 08/09/18 09:14 157/84 08/09/18 09:13 125 157/84 08/09/18 08:30 98.5 125 22 157/84 (108) 98 98.5 08/09/18 08:00 113 08/09/18 04:00 97.8 117 21 131/94 (106) 99 97.8 08/09/18 04:00 120 08/09/18 04:00 Nasal Cannula 2.0 08/09/18 01:00 116 30 108/52 (70) 96 08/09/18 00:00 115 08/09/18 00:00 110 33 97/51 (66) 97 08/09/18 00:00 Nasal Cannula 2.0 08/08/18 23:00 97.9 118 35 137/54 (81) 100 97.9 08/08/18 22:00 109 34 104/52 (69) 100 08/08/18 21:00 119 31 127/69 (88) 98 08/08/18 20:00 125 08/08/18 20:00 134 25 128/74 (92) 99 08/08/18 20:00 Nasal Cannula 2.0 08/08/18 19:39 100 Nasal Cannula 3.0 32 08/08/18 19:39 Nasal Cannula 3.0 32 08/08/18 19:38 109 22 Nasal Cannula 3.0 32 08/08/18 19:00 112 25 162/72 (102) 100 08/08/18 18:00 114 29 119/51 (73) 100 08/08/18 17:00 120 32 136/61 (86) 97 08/08/18 16:00 98.3 115 30 130/70 (90) 98 98.3 08/08/18 16:00 120 08/08/18 16:00 Nasal Cannula 2.0 08/08/18 15:00 117 32 149/74 (99) 97 08/08/18 14:00 119 22 137/79 (98) 98 08/08/18 13:00 117 26 129/58 (81) 98 Intake and Output 08/08/18 08/09/18 19:00 07:00 Intake Total 1472.5 ml 622.5 ml Output Total 700 ml 186 ml Balance 772.5 ml 436.5 ml Free Water 150 ml IV Total 782.5 ml 457.5 ml Tube Feeding 540 ml 165 ml Output Urine Total 700 ml 186 ml # Bowel Movements 1 General Appearance: no acute distress HEENT: atraumatic Respiratory/Chest: decreased breath sounds, rhonchi Cardiovascular: normal rate Abdomen: soft, non tender Microbiology Date/Time Source Procedure Growth Status 08/06/18 17:30 Blood Blood Culture - Preliminary NO GROWTH AFTER 48 HOURS Resulted 08/06/18 16:10 Blood Blood Culture - Preliminary NO GROWTH AFTER 48 HOURS Resulted 08/06/18 18:08 Nasal Nares MRSA Culture - Final NO METHICILLIN RESISTANT STAPH AUREUS... Complete 08/06/18 19:22 Urine,Clean Catch Urine Culture - Final NO GROWTH AFTER 48 HOURS Complete 08/06/18 18:08 Rectum VRE Culture - Final NO VANCOMYCIN RESISTANT ENTEROCOCCUS ... Complete 08/06/18 18:08 Rectum - Final NO CARBAPENEM-RESISTANT ENTEROBACTERI... Complete Laboratory Tests 08/08/18 18:00: Lactic Acid Level 4.90H 08/08/18 23:49: Vancomycin Level Trough 8.8 08/09/18 05:00: White Blood Count 23.3*H, Red Blood Count 3.31L, Hemoglobin 9.3L, Hematocrit 28.8L, Mean Corpuscular Volume 87, Mean Corpuscular Hemoglobin 28.2, Mean Corpuscular Hemoglobin Concent 32.5, Red Cell Distribution Width 13.9, Platelet Count 365, Mean Platelet Volume 5.6L, Neutrophils (%) (Auto) , Lymphocytes (%) ( Auto) , Monocytes (%) (Auto) , Eosinophils (%) (Auto) , Basophils (%) (Auto) , Differential Total Cells Counted 100, Neutrophils % (Manual) 83H, Lymphocytes % (Manual) 4L, Monocytes % (Manual) 5, Eosinophils % (Manual) 0, Basophils % ( Manual) 0, Band Neutrophils 8, Platelet Estimate Adequate, Platelet Morphology Normal, Hypochromasia 1+, Sodium Level 148H, Potassium Level 3.5, Chloride Level 111H, Carbon Dioxide Level 30, Anion Gap 8, Blood Urea Nitrogen 37H, Creatinine 1.2, Estimat Glomerular Filtration Rate , Glucose Level 144H, Calcium Level 8.4L, Magnesium Level 2.1, Pro-B-Type Natriuretic Peptide 3244H Current Medications Medications (Trade) Dose Ordered Sig/Eloy Route PRN Reason Start Time Stop Time Status Last Admin Dose Admin Acetaminophen (Tylenol) 650 mg Q4H PRN ORAL Mild Pain (Pain Scale 1-3) 08/09/18 02:45 09/08/18 02:44 Aspirin (ASA) 81 mg DAILY ORAL 08/09/18 09:00 09/08/18 08:59 08/09/18 12:38 Atorvastatin Calcium (Lipitor) 10 mg BEDTIME ORAL 08/09/18 21:00 09/08/18 20:59 Carbidopa/Levodopa (Sinemet 25/100) 1 tab BID GT 08/09/18 09:00 09/06/18 17:59 08/09/18 09:14 Chlorhexidine Gluconate (Bee-Hex 2%) 1 applic DAILY@2000 TOPIC 08/09/18 20:00 09/08/18 19:59 Dextrose (Dextrose 50%) 25 ml STAT PRN IV Hypoglycemia 08/09/18 03:04 09/06/18 03:03 Dextrose (Dextrose 50%) 50 ml STAT PRN IV Hypoglycemia 08/09/18 03:05 09/06/18 03:04 Dextrose/ Electrolytes 1,000 ml @ 75 mls/hr [id number] IV 08/09/18 02:45 09/07/18 10:59 Donepezil HCl (Aricept) 10 mg DAILY ORAL 08/09/18 09:00 09/08/18 08:59 08/09/18 09:14 Finasteride (Proscar) 5 mg DAILY ORAL 08/09/18 09:00 09/08/18 08:59 08/09/18 09:13 Fludrocortisone Acetate (Florinef) 0.1 mg DAILY ORAL 08/09/18 09:00 09/08/18 08:59 08/09/18 09:14 Heparin Sodium (Porcine) (Heparin 5000 units/ml) 5,000 units EVERY 12 HOURS SUBQ 08/09/18 09:00 09/05/18 20:59 08/09/18 09:11 Heparin Sodium/ Sodium Chloride (Heparin 2000 units/Ns 1000ml premix) 2,000 unit ONCE PRN INJ picc line placement 08/09/18 11:15 08/10/18 11:14 Insulin Aspart (NovoLOG) BEFORE MEALS AND HS SUBQ 08/09/18 06:30 09/06/18 11:29 08/09/18 11:30 Lidocaine HCl (Xylocaine 1% 30ml) 30 ml ONCE PRN INJ picc line placement 08/09/18 11:15 08/10/18 11:14 Lisinopril (Prinivil) 20 mg DAILY ORAL 08/09/18 09:00 09/08/18 08:59 08/09/18 09:14 Metoprolol Tartrate (Lopressor) 25 mg Q12HR GT 08/09/18 09:00 09/08/18 08:59 08/09/18 09:13 Midodrine (Pro-Amatine) 10 mg BID ORAL 08/09/18 09:00 09/08/18 08:59 08/09/18 09:13 Multivitamins (Multivitamins) 1 tab DAILY ORAL 08/09/18 09:00 09/08/18 08:59 08/09/18 09:13 Pantoprazole (Protonix) 40 mg DAILY IVP 08/09/18 09:00 09/06/18 08:59 08/09/18 09:12 Piperacillin Sod/ Tazobactam Sod 3.375 gm/Dextrose 110 ml @ 27.5 mls/hr EVERY 8 HOURS IVPB 08/09/18 06:00 08/11/18 21:59 08/09/18 07:32 Potassium Chloride (K-Dur) 20 meq ONCE ONCE GT 08/10/18 04:00 08/10/18 04:01 Quetiapine Fumarate (SEROquel) 25 mg DAILY ORAL 08/09/18 09:00 09/08/18 08:59 08/09/18 09:14 Rivaroxaban (Xarelto) 20 mg DAILY ORAL 08/09/18 09:00 09/08/18 08:59 UNV Tamsulosin HCl (Flomax) 0.4 mg BEDTIME ORAL 08/09/18 21:00 09/08/18 20:59 Vancomycin HCl (Vanco rx to dose) 1 ea DAILY PRN MISC Per rx protocol 08/09/18 09:00 09/05/18 22:29 Vancomycin/Sodium Chloride 250 ml @ 167 mls/hr Q12H IVPB 08/09/18 13:00 08/14/18 00:59 Harjeet Baptiste MD Aug 09, 2018 12:58
--- NOTE | 2018-08-09 15:54 | Diagnostic Imaging Report ---
Clinical Indication: Pleural effusion, septic shock, left-sided pneumonia Technique: Spiral acquisitions obtained through the chest. No IV contrast utilized, per referring physician request. Multiplanar reconstructions generated. Total dose length product 599.67 mGycm. CTDIvol(s) 15.98 mGy. Dose reduction achieved using automated exposure control Comparison: Chest radiograph 08/07/2018 Findings: There is a large left pleural effusion, occupying over half of the left hemithorax, despite recent large volume thoracentesis. There is complete compressive atelectasis of the left lower lobe, and compressive atelectasis of significant portion of the left upper lobe as a result. There is a small right pleural effusion. There is minimal posterior dependent atelectatic changes on the right. Some respiratory motion artifact limits assessment of the pulmonary parenchyma. There are nonspecific reticular and interstitial opacities on the right, especially in the right lower lobe, possibly partially artifactual due to motion and crowding of bronchovascular markings, but could represent some mild interstitial edema, as well. No focal dense consolidation is seen on the right. The heart is upper limits of normal in size. There is trace pericardial fluid. There is a 2 cm left lower pole thyroid nodule. There is dilatation of the esophagus, which is filled with fluid and debris. There is edema of the right pectoral region. There is bilateral marked gynecomastia. The bones demonstrate degenerative spondylosis changes. The included upper abdominal anatomy is remarkable for the presence of a gastrostomy tube within the gastric antrum. A subcentimeter hyperdense lesion is noted in the right kidney. Impression: Large left pleural effusion, occupying over half of the left hemithorax, this despite recent large volume thoracentesis. Imaging at the time thoracentesis suggested that pleural fluid may be loculated Compressive atelectasis of the entire left lower lobe and much of the left upper lobe due to the pleural fluid Nonspecific reticular and interstitial opacities on the right, particularly in the right lower lobe, may in part be artifactual but may indicate component of mild pulmonary edema Trace pericardial effusion 2 cm left lower pole thyroid nodule. Consider further evaluation with ultrasound Dilated esophagus with debris, no definite downstream obstructive lesion. Most likely on the basis of dysmotility but downstream esophageal obstruction not excludable Edema of the right pectoral region soft tissues Bilateral marked gynecomastia Other findings as noted, including degenerative spondylosis, gastrostomy, subcentimeter hyperdense right renal lesion, likely a hyperdense proteinaceous cyst The CT scanner at [facility] is accredited by the [employer] and the scans are performed using protocols designed to limit radiation exposure to as low as reasonably achievable to attain images of sufficient resolution adequate for diagnostic evaluation.
--- NOTE | 2018-08-09 17:24 | Diagnostic Imaging Report ---
Indications: Needs long-term IV access Technique: Procedure performed at bedside. Procedural timeout performed. Ultrasound confirms patent compressible left basilic vein. Total sterile technique, including sterile probe cover and sterile gel, sterile gloves, hand hygiene, hat, mask,, sterile gown, large sterile drape, and preparation with 2% chlorhexidine utilized. Local anesthesia with 1% lidocaine. Under real-time ultrasound guidance, puncture basilic vein using 21-gauge needle, passage 0.018 guidewire, exchange for 5 Thai peel-away sheath. 5 Thai Bard dual-lumen power PICC cut to 48 cm. It was inserted through the peel-away sheath. Peel-away sheath and guidewire removed. Catheter fixed to the skin. Both catheter ports aspirated and flushed. Patient tolerated procedure well, without immediate complication. Followup chest x-ray obtained, documents catheter tip position at the cavoatrial junction Impression: Successful bedside placement of left arm PICC under sonographic guidance, as described above.
[2018-08-09] MEDS: D5 1/2NS w/KCl 40meq 1000ml 1,000 ML IV SCH (17:36)
[2018-08-09] MEDS ORDERED: Tamsulosin 0.4mg cap ORAL SCH (21:00)
[2018-08-09] MEDS: Dyna-Hex 2% Top Sol 2oz TOPIC SCH (21:02)
[2018-08-09] MEDS: Tamsulosin 0.4mg cap ORAL SCH (21:02)
[2018-08-10] VITALS: BP 130/66
--- NOTE | 2018-08-10 00:15 | Progress Note ---
DATE: 08/09/2018 CARDIOLOGY PROGRESS NOTE SUBJECTIVE: The patient remains in this intensive care unit setting. A PICC line was placed today because of poor peripheral IV access. A CAT scan of the chest performed reveals large left pleural effusion that may be loculated. Trace pericardial effusion. Dilated esophagus. The patient remains withdrawn and lethargic. Monitor, sinus tachycardia. PHYSICAL EXAMINATION: VITAL SIGNS: Blood pressure 157/84, pulse 121, respiratory rate 20, and afebrile. LUNGS: Diminished breath sounds. Scattered rhonchi. HEART: Regular rhythm. Rapid rate. Normal S1 and S2. ABDOMEN: Soft. EXTREMITIES: Trace edema. G-tube intact. LABORATORY DATA: White count 23 and hemoglobin 9.3. Sodium 148, potassium 3.5, bicarbonate 30, BUN 37, and creatinine 1.2. Magnesium 2.1. Pro-natriuretic peptide 3200. IMPRESSION: 1. Pneumonia with parapneumonic effusion that is loculated, prior thoracentesis was inadequate with 1100 mL of fluid removed. 2. Persistent sepsis. 3. Secondary sinus tachycardia. 4. Metabolic and toxic encephalopathy. 5. Dysphagia with G-tube. 6. History of deep venous thrombosis and anticoagulation, now on hold. 7. Shock, recovered. 8. Dehydration. 9. Hypernatremia. PLAN: 1. Full anticoagulation, although may need to hold thoracentesis each time. 2. Antimicrobials. 3. Respiratory hygiene. 4. Titrate antihypertensive. 5. Discontinue midodrine. 6. Nutrition by feeding tube. 7. Free water replacement by IV route. Jeremy Fried M.D. DR: RIANA JOB#: [id number] CC:
[2018-08-10] MEDS: D5 1/2NS w/KCl 40meq 1000ml 1,000 ML IV SCH ×2 (02:01→15:50)
[2018-08-10 04:00] VITALS: BP 149/73
[2018-08-10] MEDS: Piperacillin/Tazobactam 3.375 GM in D5W 110 ML IVPB SCH ×3 (05:30→21:11)
[2018-08-10] MEDS: Vancomycin 750mg/NS 250ml 250 ML IVPB SCH ×2 (05:31→18:27)
[2018-08-10] MEDS: NovoLOG Insulin Flexpen SUBQ SCH ×4 (05:32→23:36)
[2018-08-10 06:06] LABS: HEMATOCRIT 29.2 % (42.0-52.0); HEMOGLOBIN 9.5 G/DL (14.2-18.0); MEAN CORPUSCULAR VOLUME 87 FL (80-99); PLATELET COUNT 384 K/UL (150-450); RED BLOOD COUNT 3.35 M/UL (4.70-6.10); RED CELL DISTRIBUTION WIDTH 14.3 % (11.6-14.8); WHITE BLOOD COUNT 20.4 K/UL (4.8-10.8)
[2018-08-10 06:23] LABS: ANION GAP 6 mmol/L (5-15); BLOOD UREA NITROGEN 31 mg/dL (7-18); CALCIUM 8.5 MG/DL (8.5-10.1); CARBON DIOXIDE 31 MMOL/L (21-32); CHLORIDE 110 MMOL/L (98-107); POTASSIUM 3.5 MMOL/L (3.5-5.1); SODIUM 147 MMOL/L (136-145)
[2018-08-10 08:00] VITALS: BP 145/73
[2018-08-10] MEDS ORDERED: Heparin 5000 units/ml inj SUBQ SCH (09:00)
[2018-08-10] MEDS: Pantoprazole Inj IVP SCH (09:26)
[2018-08-10] MEDS: Metoprolol 25mg tab GT SCH (09:26)
[2018-08-10] MEDS: Levodopa/Carbidopa 25/100 tab GT SCH ×2 (09:26→18:18)
[2018-08-10] MEDS: Donepezil 10mg tab ORAL SCH (09:27)
[2018-08-10] MEDS: Aspirin Baby 81mg ORAL SCH (09:27)
[2018-08-10] MEDS: Xarelto 10mg tab ORAL SCH (09:27)
[2018-08-10] MEDS: Lisinopril 20mg tab ORAL SCH (09:27)
[2018-08-10 12:00] VITALS: BP 122/64
--- NOTE | 2018-08-10 15:22 | Pulmonology Progress Note ---
Assessment/Plan Assessment/Plan 1. Septic shock. 2. Dehydration with azotemia. 3. Left-sided pneumonia and pleural effusion sp thoracentesis 1100 cc 4. Respiratory failure, requiring BiPAP. 5. Parkinson disease with dementia. 6. History of hemorrhagic stroke. 7. Possible history of DVT. 8. Diastolic dysfunction and LVH. 9. History of adrenocortical insufficiency. 9 ? loculated effusion on sravani left as discussed in CT report 10. fluid filled esophagus ? obstruction vs dysmotility no fevers lethargic - Seroquel prn thoracentesis results still pdg CT chest results noted BUN/Cr better - stable Na high disc w son - rec DNR, never called me back tube feeds tolerated well, NPO prognosis guarded Subjective ROS Limited/Unobtainable: No Allergies: Coded Allergies: No Known Allergies (Verified , 03/19/15) Subjective awake intermittent distress confused on Tf no bleeding positive uop LGT noed Objective Last 24 Hour Vital Signs Date Time Temp Pulse Resp B/P (MAP) Pulse Ox O2 Delivery O2 Flow Rate FiO2 08/10/18 12:00 Nasal Cannula 2.0 08/10/18 09:27 145/73 08/10/18 09:26 108 145/73 08/10/18 08:40 108 20 Nasal Cannula 2.0 28 08/10/18 08:40 Nasal Cannula 2.0 28 08/10/18 08:40 96 Nasal Cannula 2.0 28 08/10/18 08:00 97.7 105 22 145/73 (97) 99 97.7 08/10/18 08:00 113 08/10/18 08:00 Nasal Cannula 2.0 08/10/18 04:00 107 08/10/18 04:00 Nasal Cannula 2.0 08/10/18 04:00 98.3 99 20 149/73 (98) 95 98.3 08/10/18 00:00 97.7 95 20 130/66 (87) 96 97.7 08/10/18 00:00 Nasal Cannula 2.0 08/09/18 23:37 95 08/09/18 21:02 106 141/78 08/09/18 20:00 97.3 106 20 141/78 (99) 97 97.3 08/09/18 20:00 Nasal Cannula 2.0 08/09/18 19:33 110 08/09/18 19:06 Nasal Cannula 2.0 28 08/09/18 19:06 114 22 Nasal Cannula 2.0 28 08/09/18 19:06 99 Nasal Cannula 2.0 28 08/09/18 16:00 99 08/09/18 16:00 98.4 117 24 134/61 (85) 99 98.4 08/09/18 16:00 Nasal Cannula 2.0 Intake and Output 08/09/18 08/10/18 19:00 07:00 Intake Total 755 ml 1811.25 ml Output Total 400 ml 600 ml Balance 355 ml 1211.25 ml Free Water 180 ml 180 ml IV Total 75 ml 1226.25 ml Tube Feeding 500 ml 405 ml Output Urine Total 400 ml 600 ml # Bowel Movements 6 General Appearance: cachetic Respiratory/Chest: rhonchi Cardiovascular: normal rate, regular rhythm Abdomen: soft, non tender, no organomegaly Skin: no rash, no lesions Neurologic/Psychiatric: alert, disoriented CT Results Large left pleural effusion, occupying over half of the left hemithorax, this despite recent large volume thoracentesis. Imaging at the time thoracentesis suggested that pleural fluid may be loculated Compressive atelectasis of the entire left lower lobe and much of the left upper lobe due to the pleural fluid Nonspecific reticular and interstitial opacities on the right, particularly in the right lower lobe, may in part be artifactual but may indicate component of mild pulmonary edema Trace pericardial effusion 2 cm left lower pole thyroid nodule. Consider further evaluation with ultrasound Dilated esophagus with debris, no definite downstream obstructive lesion. Most likely on the basis of dysmotility but downstream esophageal obstruction not excludable Edema of the right pectoral region soft tissues Bilateral marked gynecomastia Other findings as noted, including degenerative spondylosis, gastrostomy, subcentimeter hyperdense right renal lesion, likely a hyperdense proteinaceous cyst Laboratory Tests 08/10/18 04:00: White Blood Count 20.4H, Red Blood Count 3.35L, Hemoglobin 9.5L, Hematocrit 29.2L, Mean Corpuscular Volume 87, Mean Corpuscular Hemoglobin 28.4, Mean Corpuscular Hemoglobin Concent 32.6, Red Cell Distribution Width 14.3, Platelet Count 384, Mean Platelet Volume 6.0L, Neutrophils (%) (Auto) , Lymphocytes (%) ( Auto) , Monocytes (%) (Auto) , Eosinophils (%) (Auto) , Basophils (%) (Auto) , Differential Total Cells Counted 100, Neutrophils % (Manual) 78H, Lymphocytes % (Manual) 5L, Monocytes % (Manual) 6, Eosinophils % (Manual) 0, Basophils % ( Manual) 0, Band Neutrophils 11H, Platelet Estimate Adequate, Platelet Morphology Normal, Hypochromasia 1+, Sodium Level 147H, Potassium Level 3.5, Chloride Level 110H, Carbon Dioxide Level 31, Anion Gap 6, Blood Urea Nitrogen 31H, Creatinine 1.0, Estimat Glomerular Filtration Rate , Glucose Level 240H, Lactic Acid Level 2.80H, Calcium Level 8.5 Current Medications Medications (Trade) Dose Ordered Sig/Eloy Route PRN Reason Start Time Stop Time Status Last Admin Dose Admin Acetaminophen (Tylenol) 650 mg Q4H PRN ORAL Mild Pain (Pain Scale 1-3) 08/09/18 02:45 09/08/18 02:44 Aspirin (ASA) 81 mg DAILY ORAL 08/09/18 09:00 09/08/18 08:59 08/10/18 09:27 Atorvastatin Calcium (Lipitor) 10 mg BEDTIME ORAL 08/09/18 21:00 09/08/18 20:59 08/09/18 21:02 Carbidopa/Levodopa (Sinemet 25/100) 1 tab BID GT 08/09/18 09:00 09/06/18 17:59 08/10/18 09:26 Chlorhexidine Gluconate (Bee-Hex 2%) 1 applic DAILY@2000 TOPIC 08/09/18 20:00 09/08/18 19:59 08/09/18 21:02 Dextrose (Dextrose 50%) 25 ml STAT PRN IV Hypoglycemia 08/09/18 03:04 09/06/18 03:03 Dextrose (Dextrose 50%) 50 ml STAT PRN IV Hypoglycemia 08/09/18 03:05 09/06/18 03:04 Dextrose/ Electrolytes 1,000 ml @ 75 mls/hr [id number] IV 08/09/18 13:00 09/08/18 12:59 08/10/18 02:01 Donepezil HCl (Aricept) 10 mg DAILY ORAL 08/09/18 09:00 09/08/18 08:59 08/10/18 09:27 Finasteride (Proscar) 5 mg DAILY ORAL 08/09/18 09:00 09/08/18 08:59 08/10/18 09:26 Fludrocortisone Acetate (Florinef) 0.1 mg DAILY ORAL 08/09/18 09:00 09/08/18 08:59 08/10/18 09:27 Insulin Aspart (NovoLOG) EVERY 6 HOURS SUBQ 08/10/18 12:00 09/06/18 11:29 08/10/18 12:05 Lisinopril (Prinivil) 20 mg DAILY ORAL 08/09/18 09:00 09/08/18 08:59 08/10/18 09:27 Metoprolol Tartrate (Lopressor) 25 mg Q12HR GT 08/09/18 09:00 09/08/18 08:59 08/10/18 09:26 Multivitamins (Multivitamins) 1 tab DAILY ORAL 08/09/18 09:00 09/08/18 08:59 08/10/18 09:26 Pantoprazole (Protonix) 40 mg DAILY IVP 08/09/18 09:00 09/06/18 08:59 08/10/18 09:26 Piperacillin Sod/ Tazobactam Sod 3.375 gm/Dextrose 110 ml @ 27.5 mls/hr EVERY 8 HOURS IVPB 08/09/18 06:00 08/11/18 21:59 08/10/18 14:26 Quetiapine Fumarate (SEROquel) 25 mg DAILY ORAL 08/09/18 09:00 09/08/18 08:59 08/10/18 09:28 Rivaroxaban (Xarelto) 20 mg DAILY ORAL 08/10/18 09:00 09/09/18 08:59 08/10/18 09:27 Tamsulosin HCl (Flomax) 0.4 mg BEDTIME ORAL 08/09/18 21:00 09/08/18 20:59 08/09/18 21:02 Vancomycin HCl (Vanco rx to dose) 1 ea DAILY PRN MISC Per rx protocol 08/09/18 09:00 09/05/18 22:29 Vancomycin/Sodium Chloride 250 ml @ 167 mls/hr Q12HR@0600,1800 IVPB 08/10/18 06:00 08/15/18 05:59 9/15/18 05:31 Chantell Tamayo DO Aug 10, 2018 15:22
[2018-08-10 16:00] VITALS: BP 152/92
[2018-08-10] MEDS ORDERED: NS 275ml ONE (16:20)
[2018-08-10] MEDS ORDERED: D5NS 1000ml IV ONE (16:20)
[2018-08-10] MEDS ORDERED: Tubing IV Secondary IV ONE ×2 (16:20→16:34)
[2018-08-10] MEDS ORDERED: NS 500ML ONE (16:34)
--- NOTE | 2018-08-10 19:30 | Progress Note ---
DATE: 08/10/2018 CARDIOLOGY PROGRESS NOTE SUBJECTIVE: The patient remains afebrile. He is still lethargic, but near his baseline level of mentation. He continues to have respiratory discomfort due to loculated large left pleural effusion. He had a thoracentesis 2 days ago with 1100 mL of fluid removed. OBJECTIVE: VITAL SIGNS: Blood pressure 145/73, pulse 108, and respiratory rate 20. NECK: Supple. LUNGS: With coarse breath sounds and diminished at the left. CARDIAC: Regular rhythm. Rapid rate. Normal S1 and S2 with a fourth heart sound. ABDOMEN: Soft. No edema. G-tube intact. IMPRESSION: 1. Loculated pleural effusion. 2. Acute respiratory insufficiency. 3. Sepsis with shock recovered. 4. Dehydration with hypovolemia, resolved. 5. Secondary sinus tachycardia. 6. History of hemorrhagic stroke. 7. History of DVT. 8. Chronic anticoagulation, now on hold. PLAN: 1. Continue anticoagulation, but hold if thoracentesis is planned. 2. Check venous duplex scan. 3. Continue antimicrobials and respiratory hygiene. 4. Consideration for thoracentesis under CT guidance. 5. Advance beta-karie. 6. Aspiration precautions. 7. Nutrition by feeding tube. Jeremy Fried M.D. DR: LEONARDO JOB#: [id number] CC:
[2018-08-10 20:00] VITALS: BP 152/78
[2018-08-10] MEDS: Dyna-Hex 2% Top Sol 2oz TOPIC SCH (21:11)
[2018-08-10] MEDS: Tamsulosin 0.4mg cap ORAL SCH (21:12)
[2018-08-10] MEDS: Metoprolol Tartrate 50mg tab GT SCH (21:12)
[2018-08-11] VITALS: BP 169/101
[2018-08-11 04:00] VITALS: BP 168/95
[2018-08-11] MEDS: Piperacillin/Tazobactam 3.375 GM in D5W 110 ML IVPB SCH ×3 (05:42→21:15)
[2018-08-11] MEDS: D5 1/2NS w/KCl 40meq 1000ml 1,000 ML IV SCH ×2 (05:42→18:23)
[2018-08-11] MEDS: Vancomycin 750mg/NS 250ml 250 ML IVPB SCH ×2 (05:42→18:22)
[2018-08-11] MEDS: NovoLOG Insulin Flexpen SUBQ SCH ×3 (05:43→18:22)
[2018-08-11 05:47] LABS: HEMOGLOBIN 9.5 G/DL (14.2-18.0); MEAN CORPUSCULAR VOLUME 88 FL (80-99); PLATELET COUNT 362 K/UL (150-450); RED BLOOD COUNT 3.43 M/UL (4.70-6.10); RED CELL DISTRIBUTION WIDTH 14.7 % (11.6-14.8)
[2018-08-11 06:10] LABS: ANION GAP 4 mmol/L (5-15); BLOOD UREA NITROGEN 30 mg/dL (7-18); CALCIUM 8.7 MG/DL (8.5-10.1); CARBON DIOXIDE 31 MMOL/L (21-32); CHLORIDE 112 MMOL/L (98-107); POTASSIUM 4.5 MMOL/L (3.5-5.1); SODIUM 147 MMOL/L (136-145)
[2018-08-11 08:00] VITALS: BP 148/77
[2018-08-11] MEDS: Aspirin Baby 81mg ORAL SCH (09:01)
[2018-08-11] MEDS: Donepezil 10mg tab ORAL SCH (09:01)
[2018-08-11] MEDS: Levodopa/Carbidopa 25/100 tab GT SCH ×2 (09:01→18:21)
[2018-08-11] MEDS: Pantoprazole Inj IVP SCH (09:01)
[2018-08-11] MEDS: Lisinopril 20mg tab ORAL SCH (09:02)
[2018-08-11] MEDS: Metoprolol Tartrate 50mg tab GT SCH ×2 (09:02→21:14)
[2018-08-11] MEDS: Xarelto 10mg tab ORAL SCH (09:02)
--- NOTE | 2018-08-11 09:58 | Pulmonology Progress Note ---
Assessment/Plan Assessment/Plan 1. Septic shock. 2. Dehydration with azotemia. 3. Left-sided pneumonia and pleural effusion sp thoracentesis 1100 cc 4. Respiratory failure, requiring BiPAP. 5. Parkinson disease with dementia. 6. History of hemorrhagic stroke. 7. Possible history of DVT. 8. Diastolic dysfunction and LVH. 9. History of adrenocortical insufficiency. 9 ? loculated effusion on sravani left as discussed in CT report 10. fluid filled esophagus ? obstruction vs dysmotility no fevers but WBC elevated lethargic - Seroquel prn thoracentesis results still pdg for chemstries CT chest results noted BUN/Cr better - stable Na high CXR in am and labs tube feeds tolerated well, NPO prognosis guarded Subjective ROS Limited/Unobtainable: No Allergies: Coded Allergies: No Known Allergies (Verified , 03/19/15) Subjective awake intermittent distress nonverbal for me, confused on Tf no bleeding positive uop afebrile this am and over night Objective Last 24 Hour Vital Signs Date Time Temp Pulse Resp B/P (MAP) Pulse Ox O2 Delivery O2 Flow Rate FiO2 08/11/18 09:24 106 08/11/18 09:02 98 148/77 08/11/18 09:02 148/77 08/11/18 08:00 97.6 98 20 148/77 (100) 94 97.6 08/11/18 08:00 Nasal Cannula 2.0 08/11/18 04:00 97.8 113 20 168/95 (119) 96 97.8 08/11/18 04:00 Nasal Cannula 2.0 08/11/18 03:34 106 08/11/18 00:00 97.9 104 20 169/101 (123) 99 97.9 08/11/18 00:00 Nasal Cannula 2.0 08/10/18 23:34 87 08/10/18 21:12 102 152/78 08/10/18 20:00 98.0 102 24 152/78 (102) 96 98.0 08/10/18 20:00 Nasal Cannula 2.0 08/10/18 19:21 94 08/10/18 19:10 97 Nasal Cannula 2.0 28 08/10/18 19:10 111 22 Nasal Cannula 2.0 28 08/10/18 19:10 Nasal Cannula 2.0 28 08/10/18 16:00 Nasal Cannula 2.0 08/10/18 16:00 97 08/10/18 16:00 97.6 91 20 152/92 (112) 95 97.6 08/10/18 12:00 Nasal Cannula 2.0 08/10/18 12:00 97.7 94 21 122/64 (83) 97 97.7 08/10/18 12:00 92 Intake and Output 08/10/18 08/11/18 19:00 07:00 Intake Total 1773.100 ml 2127.93 ml Output Total 500 ml 300 ml Balance 1273.100 ml 1827.93 ml Free Water 160 ml IV Total 1133.100 ml 1367.93 ml Tube Feeding 540 ml 540 ml Other 100 ml 60 ml Output Urine Total 500 ml 300 ml # Bowel Movements 1 4 General Appearance: cachetic HEENT: atraumatic Respiratory/Chest: rhonchi Cardiovascular: normal rate, regular rhythm Abdomen: soft, non tender, no organomegaly Neurologic/Psychiatric: alert, disoriented Lymphatic: no neck adenopathy Microbiology Date/Time Source Procedure Growth Status 08/10/18 17:16 Stool Clostridium difficile Toxin Assay - Final Complete Laboratory Tests 08/10/18 17:16: Vancomycin Level Trough 13.9H 08/11/18 04:00: White Blood Count 26.0*H, Red Blood Count 3.43L, Hemoglobin 9.5L, Hematocrit 30.0L, Mean Corpuscular Volume 88, Mean Corpuscular Hemoglobin 27.8, Mean Corpuscular Hemoglobin Concent 31.8L, Red Cell Distribution Width 14.7, Platelet Count 362, Mean Platelet Volume 6.3L, Neutrophils (%) (Auto) , Lymphocytes (%) (Auto) , Monocytes (%) (Auto) , Eosinophils (%) (Auto) , Basophils (%) (Auto) , Differential Total Cells Counted 100, Neutrophils % ( Manual) 85H, Lymphocytes % (Manual) 7L, Monocytes % (Manual) 4, Eosinophils % ( Manual) 0, Basophils % (Manual) 0, Band Neutrophils 4, Platelet Estimate Adequate, Platelet Morphology Normal, Hypochromasia 1+, Anisocytosis 1+, Sodium Level 147H, Potassium Level 4.5, Chloride Level 112H, Carbon Dioxide Level 31, Anion Gap 4L, Blood Urea Nitrogen 30H, Creatinine 1.0, Estimat Glomerular Filtration Rate , Glucose Level 239H, Calcium Level 8.7 Current Medications Medications (Trade) Dose Ordered Sig/Eloy Route PRN Reason Start Time Stop Time Status Last Admin Dose Admin Acetaminophen (Tylenol) 650 mg Q4H PRN ORAL Mild Pain (Pain Scale 1-3) 08/09/18 02:45 09/08/18 02:44 Aspirin (ASA) 81 mg DAILY ORAL 08/09/18 09:00 09/08/18 08:59 08/11/18 09:01 Atorvastatin Calcium (Lipitor) 10 mg BEDTIME ORAL 08/09/18 21:00 09/08/18 20:59 08/10/18 21:12 Carbidopa/Levodopa (Sinemet 25/100) 1 tab BID GT 08/09/18 09:00 09/06/18 17:59 08/11/18 09:01 Chlorhexidine Gluconate (Bee-Hex 2%) 1 applic DAILY@2000 TOPIC 08/09/18 20:00 09/08/18 19:59 08/10/18 21:11 Dextrose (Dextrose 50%) 25 ml STAT PRN IV Hypoglycemia 08/09/18 03:04 09/06/18 03:03 Dextrose (Dextrose 50%) 50 ml STAT PRN IV Hypoglycemia 08/09/18 03:05 09/06/18 03:04 Dextrose/ Electrolytes 1,000 ml @ 75 mls/hr [id number] IV 08/09/18 13:00 09/08/18 12:59 08/11/18 05:42 Donepezil HCl (Aricept) 10 mg DAILY ORAL 08/09/18 09:00 09/08/18 08:59 08/11/18 09:01 Finasteride (Proscar) 5 mg DAILY ORAL 08/09/18 09:00 09/08/18 08:59 08/11/18 09:01 Fludrocortisone Acetate (Florinef) 0.1 mg DAILY ORAL 08/09/18 09:00 09/08/18 08:59 08/11/18 09:01 Insulin Aspart (NovoLOG) EVERY 6 HOURS SUBQ 08/10/18 12:00 09/06/18 11:29 08/11/18 05:43 Lisinopril (Prinivil) 20 mg DAILY ORAL 08/09/18 09:00 09/08/18 08:59 08/11/18 09:02 Metoprolol Tartrate (Lopressor) 50 mg Q12HR GT 08/10/18 21:00 09/09/18 20:59 08/11/18 09:02 Multivitamins (Multivitamins) 1 tab DAILY ORAL 08/09/18 09:00 09/08/18 08:59 08/11/18 09:01 Pantoprazole (Protonix) 40 mg DAILY IVP 08/09/18 09:00 09/06/18 08:59 08/11/18 09:01 Piperacillin Sod/ Tazobactam Sod 3.375 gm/Dextrose 110 ml @ 27.5 mls/hr EVERY 8 HOURS IVPB 08/09/18 06:00 08/11/18 21:59 08/11/18 05:42 Quetiapine Fumarate (SEROquel) 25 mg DAILY ORAL 08/09/18 09:00 09/08/18 08:59 08/11/18 09:01 Rivaroxaban (Xarelto) 20 mg DAILY ORAL 08/10/18 09:00 09/09/18 08:59 08/11/18 09:02 Tamsulosin HCl (Flomax) 0.4 mg BEDTIME ORAL 08/09/18 21:00 09/08/18 20:59 08/10/18 21:12 Vancomycin HCl (Vanco rx to dose) 1 ea DAILY PRN MISC Per rx protocol 08/09/18 09:00 09/05/18 22:29 Vancomycin/Sodium Chloride 250 ml @ 167 mls/hr Q12HR@0600,1800 IVPB 08/10/18 06:00 08/15/18 05:59 08/11/18 05:42 Chantell Tamayo DO Aug 11, 2018 09:58
[2018-08-11 12:00] VITALS: BP 162/82
[2018-08-11 16:00] VITALS: BP 157/87
[2018-08-11] MEDS ORDERED: NS 500ML ONE (16:04)
[2018-08-11 20:00] VITALS: BP 151/85
[2018-08-11] MEDS: Tamsulosin 0.4mg cap ORAL SCH (21:14)
[2018-08-11] MEDS: Dyna-Hex 2% Top Sol 2oz TOPIC SCH (21:14)
--- NOTE | 2018-08-11 22:00 | Progress Note ---
DATE: 08/11/2018 CARDIOLOGY PROGRESS NOTE SUBJECTIVE: The patient remains with stable blood pressure readings. Monitored sinus rhythm, sinus tachycardia, and frequent atrial ectopics. OBJECTIVE: VITAL SIGNS: Blood pressure 148/78, heart rate 98, and respiratory rate 20. LUNGS: Coarse breath sounds. Scattered rhonchi. HEART: Regular rhythm and rate. Normal S1, S2 with a fourth heart sound. ABDOMEN: Soft. EXTREMITIES: Trace edema. IMAGING STUDIES: Reviewed. IMPRESSION: 1. Respiratory failure. 2. Sepsis with shock. 3. Left-sided pneumonia with pleural effusion, status post thoracentesis and residual loculation. 4. Parkinson's disease. 5. Dysphagia with gastrostomy tube 6. Secondary sinus tachycardia. 7. History of deep venous thrombosis now with recanalized thrombosis. 8. Coagulopathy due to rivaroxaban. PLAN: 1. Antimicrobials. 2. Respiratory hygiene. 3. Advance beta blockade. 4. Continue Parkinson's medications. 5. Full anticoagulation for now. 6. Consider "tap" of loculated effusion and holding anticoagulation if that is planned. 7. Nutritional support by G-tube. 8. Monitor volume status, cardiorenal parameters, and consider diuresis as needed. Jeremy Fried M.D. : WHITNEY JOB#: [id number] CC:
[2018-08-12] VITALS (37 sets, daily range): BP systolic 47–179; BP diastolic 25–91
[2018-08-12] MEDS: NovoLOG Insulin Flexpen SUBQ SCH ×5 (00:17→23:48)
[2018-08-12] MEDS: Vancomycin 750mg/NS 250ml 250 ML IVPB SCH ×2 (05:36→18:28)
[2018-08-12] MEDS: Piperacillin/Tazobactam 3.375 GM in D5W 110 ML IVPB SCH ×3 (05:37→21:46)
[2018-08-12 05:59] LABS: HEMATOCRIT 29.7 % (42.0-52.0); HEMOGLOBIN 9.8 G/DL (14.2-18.0); MEAN CORPUSCULAR VOLUME 89 FL (80-99); PLATELET COUNT 327 K/UL (150-450); RED BLOOD COUNT 3.34 M/UL (4.70-6.10); RED CELL DISTRIBUTION WIDTH 14.5 % (11.6-14.8)
[2018-08-12 06:01] LABS: ANION GAP 2 mmol/L (5-15); BLOOD UREA NITROGEN 28 mg/dL (7-18); CALCIUM 8.5 MG/DL (8.5-10.1); CARBON DIOXIDE 32 MMOL/L (21-32); CHLORIDE 113 MMOL/L (98-107); CREATININE 0.9 MG/DL (0.55-1.30); POTASSIUM 5.3 MMOL/L (3.5-5.1); SODIUM 147 MMOL/L (136-145)
[2018-08-12 06:08] LABS: WHITE BLOOD COUNT 24.3 K/UL (4.8-10.8)
[2018-08-12] MEDS: Aspirin Baby 81mg ORAL SCH (08:42)
[2018-08-12] MEDS: Levodopa/Carbidopa 25/100 tab GT SCH ×2 (08:42→18:28)
[2018-08-12] MEDS: Metoprolol Tartrate 50mg tab GT SCH ×2 (08:42→20:55)
[2018-08-12] MEDS: Pantoprazole Inj IVP SCH (08:42)
[2018-08-12] MEDS: Donepezil 10mg tab ORAL SCH (08:42)
[2018-08-12] MEDS: Lisinopril 20mg tab ORAL SCH (08:42)
[2018-08-12] MEDS: Xarelto 10mg tab ORAL SCH (09:06)
[2018-08-12] MEDS: D5 1/2NS w/KCl 40meq 1000ml 1,000 ML IV SCH (09:08)
--- NOTE | 2018-08-12 09:54 | Pulmonology Progress Note ---
Assessment/Plan Assessment/Plan 1. Septic shock. 2. Dehydration with azotemia. 3. Left-sided pneumonia and pleural effusion. 4. Respiratory failure, requiring BiPAP. 5. Parkinson disease with dementia. 6. History of hemorrhagic stroke. 7. Possible history of DVT. 8. Diastolic dysfunction and LVH. 9. History of adrenocortical insufficiency. no fevers doing poorly with low sat started BiPAP but still with resp acidosis move to ICU and intubate called son and LM; he never called back last week after I recommended DNR WBC still 24k and loculated effusion probable empyema call general surgery for chest tube prognosis poor Subjective ROS Limited/Unobtainable: Yes Allergies: Coded Allergies: No Known Allergies (Verified , 03/19/15) Objective Last 24 Hour Vital Signs Date Time Temp Pulse Resp B/P (MAP) Pulse Ox O2 Delivery O2 Flow Rate FiO2 08/12/18 09:35 98 Bi-pap 60 08/12/18 09:35 Bi-pap 60 08/12/18 09:30 68 35 98 Facial 60 08/12/18 08:42 81 160/83 08/12/18 08:42 160/83 08/12/18 08:00 Nasal Cannula 2.0 08/12/18 08:00 81 08/12/18 08:00 98.1 81 26 160/83 (108) 92 98.1 08/12/18 04:02 86 08/12/18 04:00 Nasal Cannula 2.0 08/12/18 04:00 97.8 93 22 151/84 (106) 92 97.8 08/12/18 00:00 Nasal Cannula 2.0 08/12/18 00:00 97.8 98 18 104/57 (73) 98 97.8 08/11/18 23:39 86 08/11/18 21:14 100 151/85 08/11/18 20:00 97.0 100 24 151/85 (107) 97 97.0 08/11/18 20:00 Nasal Cannula 2.0 08/11/18 19:40 97 Nasal Cannula 2.0 28 08/11/18 19:40 Nasal Cannula 2.0 28 08/11/18 19:40 96 20 Nasal Cannula 2.0 28 08/11/18 19:38 76 08/11/18 16:00 97.8 94 26 157/87 (110) 94 97.8 08/11/18 16:00 Nasal Cannula 2.0 08/11/18 16:00 75 08/11/18 12:00 Nasal Cannula 2.0 08/11/18 12:00 97.9 96 21 162/82 (108) 94 97.9 08/11/18 12:00 81 Intake and Output 08/11/18 08/12/18 19:00 07:00 Intake Total 1911.337 ml 2071.513 ml Output Total 450 ml 350 ml Balance 1461.337 ml 1721.513 ml Free Water 50 ml 180 ml IV Total 1221.337 ml 1351.513 ml Tube Feeding 540 ml 540 ml Other 100 ml Output Urine Total 450 ml 350 ml # Bowel Movements 2 2 General Appearance: other - mild resp distress HEENT: atraumatic Respiratory/Chest: decreased breath sounds, rhonchi Cardiovascular: normal rate Microbiology Date/Time Source Procedure Growth Status 08/10/18 17:16 Stool Clostridium difficile Toxin Assay - Final Complete Laboratory Tests 08/12/18 04:00: White Blood Count 24.3*H, Red Blood Count 3.34L, Hemoglobin 9.8L, Hematocrit 29.7L, Mean Corpuscular Volume 89, Mean Corpuscular Hemoglobin 29.3, Mean Corpuscular Hemoglobin Concent 32.9, Red Cell Distribution Width 14.5, Platelet Count 327, Mean Platelet Volume 6.5, Neutrophils (%) (Auto) , Lymphocytes (%) ( Auto) , Monocytes (%) (Auto) , Eosinophils (%) (Auto) , Basophils (%) (Auto) , Neutrophils % (Manual) [Pending], Lymphocytes % (Manual) [Pending], Platelet Estimate [Pending], Platelet Morphology [Pending], Sodium Level 147H, Potassium Level 5.3H, Chloride Level 113H, Carbon Dioxide Level 32, Anion Gap 2L, Blood Urea Nitrogen 28H, Creatinine 0.9, Estimat Glomerular Filtration Rate , Glucose Level 216H, Calcium Level 8.5, Magnesium Level 2.0, Troponin I 0.014, Pro-B- Type Natriuretic Peptide 6099H 08/12/18 09:15: Arterial Blood pH 7.270L, Arterial Blood Partial Pressure CO2 62.9*H, Arterial Blood Partial Pressure O2 139.7H, Arterial Blood HCO3 28.7H, Arterial Blood Oxygen Saturation 98.3H, Arterial Blood Base Excess 1.1, Malvin Test Positive Current Medications Medications (Trade) Dose Ordered Sig/Eloy Route PRN Reason Start Time Stop Time Status Last Admin Dose Admin Acetaminophen (Tylenol) 650 mg Q4H PRN ORAL Mild Pain (Pain Scale 1-3) 08/09/18 02:45 09/08/18 02:44 Aspirin (ASA) 81 mg DAILY ORAL 08/09/18 09:00 09/08/18 08:59 08/12/18 08:42 Atorvastatin Calcium (Lipitor) 10 mg BEDTIME ORAL 08/09/18 21:00 09/08/18 20:59 08/11/18 21:14 Carbidopa/Levodopa (Sinemet 25/100) 1 tab BID GT 08/09/18 09:00 09/06/18 17:59 08/12/18 08:42 Chlorhexidine Gluconate (Bee-Hex 2%) 1 applic DAILY@2000 TOPIC 08/09/18 20:00 09/08/18 19:59 08/11/18 21:14 Dextrose 1,000 ml @ 75 mls/hr [id number] IV 08/12/18 08:45 09/11/18 08:44 08/12/18 09:06 Dextrose (Dextrose 50%) 25 ml STAT PRN IV Hypoglycemia 08/09/18 03:04 09/06/18 03:03 Dextrose (Dextrose 50%) 50 ml STAT PRN IV Hypoglycemia 08/09/18 03:05 09/06/18 03:04 Donepezil HCl (Aricept) 10 mg DAILY ORAL 08/09/18 09:00 09/08/18 08:59 08/12/18 08:42 Finasteride (Proscar) 5 mg DAILY ORAL 08/09/18 09:00 09/08/18 08:59 08/12/18 08:42 Fludrocortisone Acetate (Florinef) 0.1 mg DAILY ORAL 08/09/18 09:00 09/08/18 08:59 08/12/18 08:42 Insulin Aspart (NovoLOG) EVERY 6 HOURS SUBQ 08/10/18 12:00 09/06/18 11:29 08/12/18 05:38 Lisinopril (Prinivil) 20 mg DAILY ORAL 08/09/18 09:00 09/08/18 08:59 08/12/18 08:42 Metoprolol Tartrate (Lopressor) 50 mg Q12HR GT 08/10/18 21:00 09/09/18 20:59 08/12/18 08:42 Multivitamins (Multivitamins) 1 tab DAILY ORAL 08/09/18 09:00 09/08/18 08:59 08/12/18 08:42 Norepinephrine Bitartrate 4 mg/ Dextrose 250 ml @ 0 mls/hr Q24H IV 08/12/18 09:45 09/11/18 09:44 UNV Pantoprazole (Protonix) 40 mg DAILY IVP 08/09/18 09:00 09/06/18 08:59 08/12/18 08:42 Piperacillin Sod/ Tazobactam Sod 3.375 gm/Dextrose 110 ml @ 27.5 mls/hr EVERY 8 HOURS IVPB 08/09/18 06:00 08/16/18 05:59 08/12/18 05:37 Quetiapine Fumarate (SEROquel) 25 mg DAILY ORAL 08/09/18 09:00 09/08/18 08:59 08/12/18 08:42 Rivaroxaban (Xarelto) 20 mg DAILY ORAL 08/10/18 09:00 09/09/18 08:59 08/12/18 09:06 Tamsulosin HCl (Flomax) 0.4 mg BEDTIME ORAL 08/09/18 21:00 09/08/18 20:59 08/11/18 21:14 Vancomycin HCl (Vanco rx to dose) 1 ea DAILY PRN MISC Per rx protocol 08/09/18 09:00 09/05/18 22:29 Vancomycin/Sodium Chloride 250 ml @ 167 mls/hr Q12HR@0600,1800 IVPB 08/10/18 06:00 08/15/18 05:59 08/12/18 05:36 Harjeet Baptiste MD Aug 12, 2018 09:54
--- NOTE | 2018-08-12 11:15 | Operative Note - PDOC ---
Operative Note Operative Note Date of Operation/Procedure: Aug 12, 2018 Pre-op Diagnosis: large left pleural effusion possible empyema Procedure: left chest tube insertion Post-op Diagnosis: same as pre-op Operative Findings: consistent w/pre-op dx studies Surgeon: letitia Anesthesia: local Specimen: yes - fluid sent to lab Complications: none Condition: stable Fluids: none Estimated Blood Loss: minimal Drains: other Implant(s) used?: No Indications for Procedure 82M left pleural effusion s/p tab without significant improvement. Persistent large effusion causing respiratory compromise requiring drainage. Possible empyema. No POA or next of kin available for consent and procedure medically necessary. Discussed with medical teams. Description of Procedure Patient was then placed supine with the ipsilateral arm above his head. After donning cap, mask, sterile gown and gloves, the pt's left chest wall from mid- clavicular line to posterior axillary line and from axillae to costophrenic line was scrubbed thoroughly with chlorhexidine solution and allowed to dry. Sterile drapes were applied covering the patients upper torso including face. Landmarks were identified between the 4th and 5th intercostal space. 10 cc's of 2% lidocaine with epinephrine was widely infiltrated subcutaneously for local analgesia. Using a 10 blade scalpel, the skin and subcutaneous tissues were incised parallel to the rib margins to a length of approx 3cm. Hemostats were then used to bluntly dissect down to the intercostal musculature. The parietal pleura was then punctured with large Lori clamps and the jaws were opened widely which allowed an immediate escape of air / blood / serous fluid. A 36 portuguese chest tube was introduced into the pleural space to a level of 14 cm at the skin. The skin was approximated first, via 2-0 silk sutures in a horizontal mattress above and below the chest tube, then the suture ends were tied around the indwelling tube. The tube was then placed to suction. Sterile petrolatum gauze was placed at the skin junction and covered with sterile 4x4's. The site was then taped with pressure tape and secured. The pleuravac was checked and no air leak indicated. The patient tolerated the procedure well. There were no complications. Followup CXR has been ordered for placement. Best Cody Aug 12, 2018 11:15
--- NOTE | 2018-08-12 12:01 | Diagnostic Imaging Report ---
Indication: Respiratory failure. Status post intubation. Chest tube placement. Technique: XRAY Chest 1v Comparison: 08/12/2018 FINDINGS/IMPRESSION: * Interval placement of endotracheal tube, tip within 4 mm above the aggie. Retraction by approximately 2 cm recommended for more optimal due to positioning. This is discussed with the patient's treating nurse the ICU via telephone conversation. * Interval placement of left chest tube, tip oriented to the apex. No free interval decrease in left-sided pleural fluid status post chest tube placement. Persistent small pleural effusion and patchy left mid/lower lung airspace opacities. * Slight interval increase in right-sided layering pleural fluid and right basilar atelectasis/consolidation. * Left arm PICC line unchanged. Osseous structures stable.
--- NOTE | 2018-08-12 13:24 | Diagnostic Imaging Report ---
Indication: Dyspnea, pleural effusion Technique: XRAY Chest 1v Comparison: 08/07/2018 Findings: Interval white out of the entire left hemithorax compared to the prior exam likely related to interval increased left-sided pleural fluid. Atelectasis, pneumonia or other pathology is in the left lung not excluded. Left-sided PICC line has its catheter tip in the region of the superior vena cava. There is increased haziness of the pulmonary vascularity on the right. Small right-sided pleural effusion. Osseous structures stable. IMPRESSION: Interval white out of the left hemithorax likely related to reaccumulation of left-sided pleural fluid. Pneumonia or other pathologies in the underlying left lung not excludable. Interval placement left arm PICC line, catheter tip in the region of the superior vena cava.
[2018-08-12] MEDS ORDERED: Morphine Sulfate 2mg/ml Inj IVP PRN (16:30)
[2018-08-12] MEDS ORDERED: LORazepam Inj 2mg/ml 1ml ONE (16:31)
[2018-08-12] MEDS ORDERED: LORazepam Inj 2mg/ml 1ml IV SCH (18:02)
[2018-08-12] MEDS ORDERED: LORazepam Inj 2mg/ml 1ml IV PRN (18:15)
[2018-08-12] MEDS: D5W IV SCH (18:55)
[2018-08-12] MEDS: NOREPINEPHRINE IV SCH (18:55)
[2018-08-12] MEDS ORDERED: Norepinephrine 4mg in D5W 250ml IV SCH (20:00)
[2018-08-12 20:27] LABS: ANION GAP 6 mmol/L (5-15); BLOOD UREA NITROGEN 26 mg/dL (7-18); CARBON DIOXIDE 28 MMOL/L (21-32); CHLORIDE 110 MMOL/L (98-107); CREATININE 1.1 MG/DL (0.55-1.30); POTASSIUM 4.1 MMOL/L (3.5-5.1); SODIUM 144 MMOL/L (136-145)
[2018-08-12] MEDS: Dyna-Hex 2% Top Sol 2oz TOPIC SCH (20:27)
[2018-08-12 20:32] LABS: ALANINE AMINOTRANSFERASE 8 U/L (12-78); ALBUMIN 1.1 G/DL (3.4-5.0); ALBUMIN/GLOBULIN RATIO 0.2 (1.0-2.7); ALKALINE PHOSPHATASE 101 U/L (46-116); ASPARTATE AMINO TRANSFERASE 22 U/L (15-37); BILIRUBIN,TOTAL 0.3 MG/DL (0.2-1.0)
--- NOTE | 2018-08-12 20:45 | Progress Note ---
DATE: 08/12/2018 CARDIOLOGY PROGRESS NOTE SUBJECTIVE: The patient remains withdrawn and lethargic. Respiratory parameters however have improved. OBJECTIVE: VITAL SIGNS: Blood pressure 160/80, pulse 81, respirations 35. He is requiring BiPAP support intermittently due to hypoxia. LUNGS: Coarse breath sounds. Scattered rhonchi. Diminished at the left base. CARDIAC: Regular rhythm and rate. Normal S1 and S2 with a fourth heart sound. ABDOMEN: Soft and there is G-tube, is intact with trace edema. LABORATORY AND DIAGNOSTIC DATA: Labs notable for white count still elevated at 24 and hemoglobin 9.8. ABG, 7.41, 42, and 87. Chemistry with sodium 147, potassium 5.3, bicarbonate 32, BUN 28 creatinine 0.9 and pro-natriuretic peptide is 6000. Troponin negative. IMPRESSION: 1. Dehydration. 2. Hypernatremia. 3. Hyperchloremia. 4. Hyperkalemia. 5. Prerenal azotemia. 6. Type 2 diabetes mellitus with hyperglycemia. 7. Acute on chronic diastolic congestive heart failure. 8. Sepsis. 9. Pneumonia. 10. Loculated pleural effusion. 11. History of DVT on chronic anticoagulation. PLAN: The patient remains on antibiotics, bronchodilators and respiratory hygiene. A chest tube will be required because he likely has an empyema based on the findings and the fact that the initial thoracentesis did not obviate his leukocytosis and drain the loculated site. With regard to cardiovascular status, his anticoagulation can be held for this chest tube procedure. He remains on rn cardiac and close respiratory monitoring with BiPAP support. Condition remains serious with guarded prognosis. Jeremy Fried M.D. DR: LEONARDO JOB#: [id number] CC:
[2018-08-12] MEDS: Tamsulosin 0.4mg cap ORAL SCH (20:55)
[2018-08-13] VITALS (48 sets, daily range): BP systolic 74–144; BP diastolic 34–78
--- NOTE | 2018-08-13 01:36 | Diagnostic Imaging Report ---
APPROVED REPORT CPT Code: 78861 Present Symptoms Shortness of breath Past History DVT :Right RIGHT LEG: Venous imaging reveals recanalized chronic thrombus in the superficial femoral vein. Imaging also reveals patency of the common femoral, popliteal and calf veins. The greater saphenous vein is also within normal limits. Doppler indicates normal spontaneous flow within these segments. LEFT LEG: Venous imaging reveals a patent deep venous system. There is no evidence of thrombus within the femoral, popliteal or tibial segments. The greater saphenous vein is also within normal limits. Doppler indicates normal spontaneous flow within these segments. There is no evidence of acute deep vein thrombosis.
[2018-08-13] MEDS: NOREPINEPHRINE IV SCH ×2 (03:18→10:58)
[2018-08-13] MEDS: D5W IV SCH ×2 (03:18→10:58)
[2018-08-13] MEDS: Vancomycin 750mg/NS 250ml 250 ML IVPB SCH ×2 (05:39→17:45)
[2018-08-13] MEDS: Piperacillin/Tazobactam 3.375 GM in D5W 110 ML IVPB SCH ×3 (05:39→22:50)
[2018-08-13] MEDS: NovoLOG Insulin Flexpen SUBQ SCH ×3 (05:48→18:17)
--- NOTE | 2018-08-13 07:40 | Emergency Room Report ---
History of Present Illness General Chief Complaint: Altered Level of Consciousness Source: Family Member Present Illness HPI I was asked by this patient's ICU physician to intubate this patient for altered mental status and respiratory failure. This patient had been admitted for sepsis. Allergies: Coded Allergies: No Known Allergies (Verified , 03/19/15) Nursing Documentation-[facility] Past Medical History: No History, Except For Hx Cardiac Problems: Yes - hypercholesteremia Hx Hypertension: Yes Hx Cancer: Yes - Laryngeal cancer Hx Gastrointestinal Problems: Yes - prostate problems Hx Neurological Problems: Yes - Alzheimers Hx Dementia: Yes Hx Parkinson's Disease: Yes Hx Head Trauma: Yes - 2007 Hx Memory Loss: Yes Hx Dizziness: Yes Hx Syncope: Yes Physical Exam Vital Signs Date Time Temp Pulse Resp B/P (MAP) Pulse Ox O2 Delivery O2 Flow Rate FiO2 08/09/18 08:00 Nasal Cannula 2.0 08/09/18 08:00 113 08/09/18 08:30 98.5 22 157/84 (108) 98 98.5 08/09/18 09:22 28 Sp02 EP Interpretation: reviewed, abnormal General Appearance: other - Only withdraws from pain, OTW, unreponsive., Chronically Ill Head: normocephalic, atraumatic Neck: limited range of motion Respiratory: rhonchi, other - On BIPAP Cardiovascular #1: tachycardia Neurologic: other - GCS 3 Procedures Intubation Intubation : Consent: Emergent Intubation Method: orotracheal Tube Size (cm): 7.5 Medications: Etomidate, Succinylcholine Breath Sounds after Intubation: equal Intubation Complications: no complications Post Intubation Xray: Yes Progress/Xray Impression: Appropriate tube placement Attempts: One Patient Tolerated: Well Complications: None Medical Decision Making Diagnostic Impression: Primary Impression: Severe sepsis Additional Impressions: Fever Lactic acid acidosis Pleural effusion UTI (urinary tract infection) DONNIE (acute kidney injury) Respiratory failure ER Course This patient was intubated by rapid sequence intubation for respiratory failure and a GCS of 3. There were no complications. See my procedure note. Further care by the primary physician caring for this patient in ICU. Chest X-Ray Diagnostic Results Chest X-Ray Diagnostic Results : Chest X-Ray Ordered: Yes # of Views/Limited/Complete: 1 View Indication: Other Interpretation: other - See official report. Appropriate ET tube placement. Last Vital Signs Date Time Temp Pulse Resp B/P (MAP) Pulse Ox O2 Delivery O2 Flow Rate FiO2 08/13/18 06:30 120 26 119/62 (81) 100 08/13/18 05:00 100.4 100.4 08/13/18 04:47 30 08/13/18 04:00 Mechanical Ventilator 08/12/18 08:00 2.0 Disposition: ADMITTED INPATIENT Condition: Critical Referrals: [facility],REFERRING (PCP) Elisa Zhang DO Aug 13, 2018 07:40
[2018-08-13] MEDS: Metoprolol Tartrate 50mg tab GT SCH ×2 (07:49→21:09)
[2018-08-13] MEDS: Lisinopril 20mg tab ORAL SCH (07:55)
[2018-08-13 08:36] LABS: HEMATOCRIT 23.6 % (42.0-52.0); HEMOGLOBIN 7.6 G/DL (14.2-18.0); MEAN CORPUSCULAR VOLUME 86 FL (80-99); PLATELET COUNT 272 K/UL (150-450); RED BLOOD COUNT 2.75 M/UL (4.70-6.10); RED CELL DISTRIBUTION WIDTH 14.7 % (11.6-14.8); WHITE BLOOD COUNT 13.5 K/UL (4.8-10.8)
[2018-08-13] MEDS: Levodopa/Carbidopa 25/100 tab GT SCH ×2 (08:46→17:44)
[2018-08-13] MEDS: Donepezil 10mg tab ORAL SCH (08:47)
[2018-08-13] MEDS: Pantoprazole Inj IVP SCH (08:47)
[2018-08-13] MEDS: Xarelto 10mg tab ORAL SCH (08:49)
[2018-08-13 08:52] LABS: ANION GAP 6 mmol/L (5-15); BLOOD UREA NITROGEN 20 mg/dL (7-18); CALCIUM 7.9 MG/DL (8.5-10.1); CARBON DIOXIDE 26 MMOL/L (21-32); CHLORIDE 104 MMOL/L (98-107); CREATININE 1.2 MG/DL (0.55-1.30); POTASSIUM 3.5 MMOL/L (3.5-5.1); SODIUM 136 MMOL/L (136-145)
[2018-08-13] MEDS: Aspirin Baby 81mg GT SCH (09:02)
--- NOTE | 2018-08-13 10:36 | Diagnostic Imaging Report ---
Indication: Dyspnea Technique: One view of the chest Comparison: 08/12/2018 Findings: Interim slight retraction of endotracheal tube, tip position at approximately 3 cm above the aggie. Left chest tube, left-sided pleural opacities are unchanged. Parenchymal interstitial disease on the left is unchanged. Right lung and pleural space are clear. Previously demonstrated right lateral basilar opacities have resolved left arm PICC remains. Heart size is normal Impression: Improved and now satisfactory position of endotracheal tube Resolved right lung pleural and parenchymal opacities, over one day Other stable findings as described
--- NOTE | 2018-08-13 11:17 | Pulmonology Progress Note ---
Assessment/Plan Assessment/Plan 1. Septic shock. 2. Dehydration with azotemia. 3. Left-sided pneumonia and pleural effusion. 4. Respiratory failure, requiring BiPAP. 5. Parkinson disease with dementia. 6. History of hemorrhagic stroke. 7. Possible history of DVT. 8. Diastolic dysfunction and LVH. 9. History of adrenocortical insufficiency. no fevers in ICU intubated on levophed disc w and agreed to DNR empyema w fluid glucose <2 (reported 5 d late!) chest tube placed prognosis poor family may discussing withdrawal of support and comfort care had GM seizure x 1 Subjective ROS Limited/Unobtainable: Yes Allergies: Coded Allergies: No Known Allergies (Verified , 03/19/15) Objective Last 24 Hour Vital Signs Date Time Temp Pulse Resp B/P (MAP) Pulse Ox O2 Delivery O2 Flow Rate FiO2 08/13/18 10:58 123/59 08/13/18 09:30 112 20 100/51 (67) 100 08/13/18 09:25 116 24 30 08/13/18 09:00 115 22 108/55 (72) 100 08/13/18 09:00 108/55 08/13/18 08:30 120 26 116/62 (80) 100 08/13/18 08:00 99.5 116 24 125/61 (82) 100 99.5 08/13/18 08:00 125/61 08/13/18 08:00 Mechanical Ventilator 08/13/18 07:55 106/59 08/13/18 07:49 119 106/59 08/13/18 07:30 120 26 106/59 (75) 100 08/13/18 07:06 113 20 30 08/13/18 07:00 120 27 132/59 (83) 100 08/13/18 07:00 132/59 08/13/18 06:30 120 26 119/62 (81) 100 08/13/18 06:00 119 27 134/61 (85) 100 08/13/18 05:30 115 23 136/63 (87) 100 08/13/18 05:00 100.4 116 20 112/57 (75) 100 100.4 08/13/18 04:47 118 25 30 08/13/18 04:30 117 22 129/56 (80) 100 08/13/18 04:00 118 24 129/56 (80) 100 18 04:00 118 18 04:00 30 18 04:00 Mechanical Ventilator 08/13/18 03:30 122 25 121/56 (77) 100 18 03:18 132/70 18 03:00 122 25 118/57 (77) 100 08/13/18 02:55 121 28 30 08/13/18 02:30 119 24 139/68 (91) 100 08/13/18 02:00 115 20 120/55 (76) 100 18 01:36 117 27 30 08/13/18 01:30 112 26 103/66 (78) 100 08/13/18 01:00 123 26 114/54 (74) 100 08/13/18 00:30 120 26 105/54 (71) 100 08/13/18 00:00 116 08/13/18 00:00 40 08/13/18 00:00 100.0 114 24 90/43 (59) 100 100.0 08/13/18 00:00 Mechanical Ventilator 08/12/18 23:30 105 20 113/55 (74) 100 08/12/18 23:08 107 20 30 08/12/18 23:00 103 20 92/44 (60) 100 08/12/18 22:30 104 20 93/53 (66) 100 08/12/18 22:00 107 20 126/67 (86) 100 08/12/18 21:45 107 20 131/71 (91) 100 18 21:30 107 20 123/66 (85) 100 18 21:15 110 20 127/50 (75) 100 18 21:00 114 20 151/79 (103) 100 18 20:55 115 145/76 18 20:45 117 20 40 18 20:30 115 20 145/76 (99) 100 18 20:00 Mechanical Ventilator 08/12/18 20:00 60 18 20:00 117 20 134/75 (94) 100 18 20:00 117 18 19:45 125 22 148/75 (99) 100 18 19:30 118 20 141/84 (103) 100 18 19:15 137 21 130/75 (93) 100 17/18 19:07 137 20 50 08/12/18 19:06 129 20 Mechanical Ventilator 60 18 19:00 99.8 135 20 153/85 (107) 100 99.8 17/18 18:55 122/56 08/12/18 18:30 110 21 151/83 (105) 100 18 18:00 99.8 107 22 59/35 (43) 100 99.8 08/12/18 18:00 59/35 08/12/18 17:30 115 21 121/62 (81) 100 18 17:02 118 20 60 08/12/18 17:00 81/49 18 17:00 118 25 106/56 (73) 100 18 16:45 118 25 81/49 (60) 100 18 16:30 100.0 117 22 179/83 (115) 100 100.0 18 16:00 114 18 16:00 Mechanical Ventilator 08/12/18 16:00 118 26 121/72 (88) 100 18 16:00 121/72 18 15:30 139 28 89/59 (69) 100 18 15:00 112 25 135/62 (86) 100 18 15:00 117/67 08/12/18 14:45 112 20 60 08/12/18 14:30 110 26 136/74 (94) 100 18 14:04 113/69 18 14:00 107 24 138/71 (93) 100 08/12/18 13:30 102 26 94/55 (68) 100 18 13:00 98.2 94 24 166/74 (104) 100 98.2 18 13:00 166/73 18 12:40 111 20 60 17/18 12:30 94/56 17/18 12:30 121 24 94/56 (69) 100 18 12:00 108 18 12:00 160/91 08/12/18 12:00 111 23 160/91 (114) 100 9/17/18 12:00 Mechanical Ventilator 08/12/18 11:30 108 21 124/73 (90) 100 08/12/18 11:30 66/51 Intake and Output 08/12/18 08/13/18 19:00 07:00 Intake Total 1724.55 ml 2767.45 ml Output Total 1540 ml 700 ml Balance 184.55 ml 2067.45 ml IV Total 1494.55 ml 1962.45 ml Tube Feeding 30 ml 435 ml Other 200 ml 370 ml Output Urine Total 440 ml 600 ml Chest Tube Drainage Total 1100 ml 100 ml # Bowel Movements 3 3 General Appearance: no acute distress Respiratory/Chest: rhonchi Cardiovascular: regular rhythm, tachycardia Abdomen: soft, non tender Microbiology Date/Time Source Procedure Growth Status 08/10/18 17:16 Stool Clostridium difficile Toxin Assay - Final Complete Laboratory Tests 08/12/18 19:30: Sodium Level 144, Potassium Level 4.1, Chloride Level 110H, Carbon Dioxide Level 28, Anion Gap 6, Blood Urea Nitrogen 26H, Creatinine 1.1, Estimat Glomerular Filtration Rate , Glucose Level 171H, Calcium Level 8.0L, Total Bilirubin 0.3, Aspartate Amino Transf (AST/SGOT) 22, Alanine Aminotransferase ( ALT/SGPT) 8L, Alkaline Phosphatase 101, Total Protein 5.8L, Albumin 1.1L, Globulin 4.7, Albumin/Globulin Ratio 0.2L 08/12/18 20:45: Body Fluid Source Chest drainage, Body Fluid Volume 30, Body Fluid Appearance Bloody, Body Fluid RBC 150231, Body Fluid Total Nucleated Cells 7200, Body Fluid Polynuclear WBCs (%) 93, Body Fluid Mononuclear WBCs (%) 7, Body Fluid Mesothelial Cells (%) 0, Body Fluid Glucose [Pending], Body Fluid Total Protein [Pending] 08/13/18 08:20: Sodium Level 136, Potassium Level 3.5, Chloride Level 104, Carbon Dioxide Level 26, Anion Gap 6, Blood Urea Nitrogen 20H, Creatinine 1.2, Estimat Glomerular Filtration Rate , Glucose Level 343#H, Calcium Level 7.9L, White Blood Count 13.5H, Red Blood Count 2.75L, Hemoglobin 7.6L, Hematocrit 23.6L, Mean Corpuscular Volume 86, Mean Corpuscular Hemoglobin 27.6, Mean Corpuscular Hemoglobin Concent 32.1, Red Cell Distribution Width 14.7, Platelet Count 272, Mean Platelet Volume 6.1L, Neutrophils (%) (Auto) , Lymphocytes (%) (Auto) , Monocytes (%) (Auto) , Eosinophils (%) (Auto) , Basophils (%) (Auto) , Neutrophils % (Manual) [Pending], Lymphocytes % (Manual) [Pending], Platelet Estimate [Pending], Platelet Morphology [Pending], Lactic Acid Level 2.30H 08/13/18 09:25: Arterial Blood pH 7.534H, Arterial Blood Partial Pressure CO2 31.1L, Arterial Blood Partial Pressure O2 94.7, Arterial Blood HCO3 25.6, Arterial Blood Oxygen Saturation 97.1, Arterial Blood Base Excess 3.0, Malvin Test Positive Current Medications Medications (Trade) Dose Ordered Sig/Eloy Route PRN Reason Start Time Stop Time Status Last Admin Dose Admin Acetaminophen (Tylenol) 650 mg Q4H PRN ORAL Mild Pain (Pain Scale 1-3) 08/12/18 10:30 09/08/18 10:29 Aspirin (ASA) 81 mg DAILY GT 08/13/18 09:00 09/08/18 08:59 08/13/18 09:02 Atorvastatin Calcium (Lipitor) 10 mg BEDTIME ORAL 08/12/18 21:00 09/08/18 20:59 08/12/18 20:55 Carbidopa/Levodopa (Sinemet 25/100) 1 tab BID GT 08/12/18 18:00 09/06/18 17:59 08/13/18 08:46 Chlorhexidine Gluconate (Bee-Hex 2%) 1 applic DAILY@2000 TOPIC 08/12/18 20:00 09/08/18 19:59 08/12/18 20:27 Dextrose 1,000 ml @ 75 mls/hr [id number] IV 08/12/18 10:30 09/11/18 10:29 08/13/18 10:58 Dextrose (Dextrose 50%) 25 ml STAT PRN IV Hypoglycemia 08/12/18 10:15 09/11/18 10:14 Dextrose (Dextrose 50%) 50 ml STAT PRN IV Hypoglycemia 08/12/18 10:15 09/11/18 10:14 Donepezil HCl (Aricept) 10 mg DAILY ORAL 08/13/18 09:00 09/08/18 08:59 08/13/18 08:47 Finasteride (Proscar) 5 mg DAILY ORAL 08/13/18 09:00 09/08/18 08:59 08/13/18 08:48 Fludrocortisone Acetate (Florinef) 0.1 mg DAILY ORAL 08/13/18 09:00 09/08/18 08:59 Insulin Aspart (NovoLOG) EVERY 6 HOURS SUBQ 08/12/18 12:00 09/06/18 11:29 08/13/18 05:48 Lisinopril (Prinivil) 20 mg DAILY ORAL 08/13/18 09:00 09/08/18 08:59 Lorazepam (Ativan 2mg/ml 1ml) 0.5 mg Q2H PRN IV For Seizures 08/12/18 18:15 08/19/18 18:14 Metoprolol Tartrate (Lopressor) 50 mg Q12HR GT 08/12/18 21:00 09/09/18 20:59 08/12/18 20:55 Morphine Sulfate (Morphine Sulfate) 2 mg Q3H PRN IVP For Pain 08/12/18 16:30 08/19/18 16:29 Multivitamins (Multivitamins) 1 tab DAILY ORAL 08/13/18 09:00 09/08/18 08:59 08/13/18 08:48 Norepinephrine Bitartrate 8 mg/ Dextrose 500 ml @ 0 mls/hr Q24H IV 08/12/18 20:00 09/11/18 19:59 08/13/18 10:58 Pantoprazole (Protonix) 40 mg DAILY IVP 08/13/18 09:00 09/06/18 08:59 08/13/18 08:47 Piperacillin Sod/ Tazobactam Sod 3.375 gm/Dextrose 110 ml @ 27.5 mls/hr EVERY 8 HOURS IVPB 08/12/18 14:00 08/16/18 05:59 08/13/18 05:39 Quetiapine Fumarate (SEROquel) 25 mg DAILY ORAL 08/13/18 09:00 09/08/18 08:59 08/13/18 09:03 Rivaroxaban (Xarelto) 20 mg DAILY ORAL 08/13/18 09:00 09/09/18 08:59 08/13/18 08:49 Tamsulosin HCl (Flomax) 0.4 mg BEDTIME ORAL 08/12/18 21:00 09/08/18 20:59 08/12/18 20:55 Vancomycin HCl (Vanco rx to dose) 1 ea DAILY PRN MISC Per rx protocol 08/12/18 10:15 09/11/18 10:14 Vancomycin/Sodium Chloride 250 ml @ 167 mls/hr Q12HR@0600,1800 IVPB 08/12/18 18:00 08/15/18 05:59 08/13/18 05:39 Harjeet Baptiste MD Aug 13, 2018 11:17
--- NOTE | 2018-08-13 17:27 | General Progress Note ---
Progress Note Progress Note Surgery: chest tube in satisfactory position and CXR improved cont chest tube to suction AM CXR will follow. thank you Best Cody Aug 13, 2018 17:27
[2018-08-13] MEDS: Dyna-Hex 2% Top Sol 2oz TOPIC SCH (20:15)
[2018-08-13] MEDS: Tamsulosin 0.4mg cap ORAL SCH (21:09)
--- NOTE | 2018-08-13 21:15 | Progress Note ---
DATE: 08/13/2018 CARDIOLOGY PROGRESS NOTE SUBJECTIVE: The patient remains orally intubated in the intensive care unit. He had a seizure earlier. He is status post drainage of empyema. OBJECTIVE: VITAL SIGNS: Blood pressure 100/50, heart rate 112, and respiratory rate 20. Monitor, sinus tachycardia. He remains on pressor support. LUNGS: Diminished breath sounds. Bilateral rhonchi. HEART: Regular rhythm. Rapid rate. Normal S1 and S2. Chest tube on the right side. ABDOMEN: Soft. IMAGING: Chest x-ray reveals satisfactory ETT position with decreased right lung opacity. IMPRESSION: 1. Respiratory failure. 2. Pneumonia with empyema, status post chest tube drainage with sepsis. 3. Secondary sinus tachycardia. 4. Anemia. 5. Parkinson disease with dementia. 6. Lactic acidosis. 7. Remains critical and guarded. PLAN: 1. Ventilator support. 2. Hydration. 3. Antimicrobials. 4. Chest tube management. 5. Nutrition by feeding tube. 6. Condition remains critical with prognosis guarded. Jeremy Fried M.D. DR: INÉS JOB#: [id number] CC:
[2018-08-14] VITALS (47 sets, daily range): BP systolic 87–142; BP diastolic 44–67
[2018-08-14] MEDS: NovoLOG Insulin Flexpen SUBQ SCH ×5 (01:47→23:38)
[2018-08-14 05:17] LABS: ALANINE AMINOTRANSFERASE 32 U/L (12-78); ALBUMIN 1.1 G/DL (3.4-5.0); ALBUMIN/GLOBULIN RATIO 0.2 (1.0-2.7); ALKALINE PHOSPHATASE 110 U/L (46-116); ANION GAP 7 mmol/L (5-15); ASPARTATE AMINO TRANSFERASE 53 U/L (15-37); BILIRUBIN,TOTAL 0.4 MG/DL (0.2-1.0); BLOOD UREA NITROGEN 18 mg/dL (7-18); CALCIUM 8.2 MG/DL (8.5-10.1); CARBON DIOXIDE 27 MMOL/L (21-32); CHLORIDE 111 MMOL/L (98-107); CREATININE 1.4 MG/DL (0.55-1.30); HEMATOCRIT 21.4 % (42.0-52.0); HEMOGLOBIN 7.3 G/DL (14.2-18.0); MEAN CORPUSCULAR VOLUME 85 FL (80-99); PLATELET COUNT 252 K/UL (150-450); POTASSIUM 3.5 MMOL/L (3.5-5.1); RED BLOOD COUNT 2.53 M/UL (4.70-6.10); RED CELL DISTRIBUTION WIDTH 14.9 % (11.6-14.8); SODIUM 145 MMOL/L (136-145); WHITE BLOOD COUNT 11.8 K/UL (4.8-10.8)
[2018-08-14] MEDS: Piperacillin/Tazobactam 3.375 GM in D5W 110 ML IVPB SCH ×3 (06:01→21:57)
[2018-08-14] MEDS: NOREPINEPHRINE IV SCH (07:49)
[2018-08-14] MEDS: D5W IV SCH (07:49)
[2018-08-14] MEDS: Aspirin Baby 81mg GT SCH (08:19)
[2018-08-14] MEDS: Metoprolol Tartrate 50mg tab GT SCH ×2 (08:19→20:46)
[2018-08-14] MEDS: Xarelto 10mg tab ORAL SCH (08:21)
[2018-08-14] MEDS: Lisinopril 20mg tab ORAL SCH (08:21)
[2018-08-14] MEDS: Levodopa/Carbidopa 25/100 tab GT SCH ×2 (08:23→18:24)
[2018-08-14] MEDS: Pantoprazole Inj IVP SCH (08:23)
[2018-08-14] MEDS: Donepezil 10mg tab ORAL SCH (08:23)
--- NOTE | 2018-08-14 11:29 | Pulmonology Progress Note ---
Assessment/Plan Assessment/Plan 1. Septic shock. 2. Dehydration with azotemia. 3. Left-sided pneumonia and pleural effusion. 4. Respiratory failure, requiring BiPAP. 5. Parkinson disease with dementia. 6. History of hemorrhagic stroke. 7. Possible history of DVT. 8. Diastolic dysfunction and LVH. 9. History of adrenocortical insufficiency. 10. Anemia no fevers, no seizures in ICU intubated on levophed empyema w GNR or c/s - dc vanco chest tube draining prognosis poor family may discussing withdrawal of support and comfort care anemia, transfuse if <7 Subjective ROS Limited/Unobtainable: Yes Allergies: Coded Allergies: No Known Allergies (Verified , 03/19/15) Objective Last 24 Hour Vital Signs Date Time Temp Pulse Resp B/P (MAP) Pulse Ox O2 Delivery O2 Flow Rate FiO2 08/14/18 11:00 97 20 133/62 (85) 100 08/14/18 10:41 99 20 30 08/14/18 10:30 97 20 110/58 (75) 100 08/14/18 10:00 105 20 106/55 (72) 100 08/14/18 09:30 99 20 105/49 (67) 100 08/14/18 09:00 99.2 98 20 108/49 (68) 100 99.2 08/14/18 08:40 104 24 30 08/14/18 08:30 105 20 118/65 (82) 100 08/14/18 08:21 110/60 08/14/18 08:19 105 110/60 08/14/18 08:00 30 08/14/18 08:00 Mechanical Ventilator 08/14/18 08:00 120 08/14/18 08:00 108 20 122/66 (84) 100 08/14/18 07:49 131/64 08/14/18 07:30 105 20 128/65 (86) 100 08/14/18 07:10 102 21 30 08/14/18 07:00 106 20 130/66 (87) 100 08/14/18 06:30 106 20 142/67 (92) 100 08/14/18 06:00 106 20 141/64 (89) 100 08/14/18 05:30 105 21 126/58 (80) 100 08/14/18 05:16 106 22 30 9/19/18 05:00 104 22 119/64 (82) 100 08/14/18 04:30 103 24 137/60 (85) 100 08/14/18 04:00 30 08/14/18 04:00 Mechanical Ventilator 08/14/18 04:00 107 08/14/18 04:00 99.8 107 23 132/58 (82) 100 99.8 08/14/18 03:30 115 25 116/58 (77) 100 08/14/18 03:10 118 25 30 08/14/18 03:00 115 23 129/60 (83) 100 08/14/18 02:30 110 20 130/60 (83) 100 08/14/18 02:00 109 24 138/54 (82) 100 08/14/18 01:30 110 22 137/61 (86) 100 08/14/18 01:14 103 22 30 08/14/18 01:00 99.6 109 23 124/61 (82) 100 99.6 08/14/18 00:30 103 21 136/59 (84) 100 08/14/18 00:00 109 08/14/18 00:00 Mechanical Ventilator 08/14/18 00:00 30 08/14/18 00:00 104 21 87/50 (62) 100 08/13/18 23:30 104 21 132/64 (86) 100 08/13/18 23:00 104 21 132/64 (86) 100 08/13/18 22:48 118 25 30 08/13/18 22:30 96 21 74/45 (55) 100 08/13/18 22:00 96 21 94/34 (54) 100 08/13/18 21:30 94 21 137/77 (97) 100 18 21:10 99 20 30 18 21:09 104 129/59 18 21:00 104 20 134/59 (84) 100 18 20:30 105 18 129/59 (82) 100 08/13/18 20:00 30 08/13/18 20:00 98.9 104 20 105/53 (70) 100 98.9 18 20:00 104 18 20:00 Mechanical Ventilator 08/13/18 19:30 105 23 112/56 (74) 100 08/13/18 19:00 136/65 9/18/18 19:00 110 28 136/65 (88) 100 18 18:58 110 24 30 18 18:30 103 20 126/59 (81) 100 18 18:00 106 21 130/69 (89) 100 1818 18:00 130/58 18 17:30 104 23 122/63 (82) 100 18 17:30 122/63 18 17:00 106 21 142/66 (91) 100 18 17:00 142/66 18 16:51 113 24 30 18 16:30 110 20 142/69 (93) 100 08/13/18 16:00 98.6 110 20 134/66 (88) 100 98.6 18 16:00 30 08/13/18 16:00 Mechanical Ventilator 08/13/18 16:00 134/66 08/13/18 16:00 109 08/13/18 15:30 108 23 144/78 (100) 100 18 15:00 155/81 18 15:00 109 23 127/64 (85) 100 18 14:56 114 23 30 08/13/18 14:30 110 21 134/64 (87) 100 18 14:00 134/63 18 14:00 108 20 134/63 (86) 100 08/13/18 13:30 112 24 127/61 (83) 100 08/13/18 13:27 115 21 30 08/13/18 13:00 111 24 120/70 (87) 100 18 13:00 120/70 08/13/18 12:30 110 21 128/65 (86) 100 08/13/18 12:00 130 08/13/18 12:00 30 08/13/18 12:00 Mechanical Ventilator 08/13/18 12:00 124/73 08/13/18 12:00 98.9 110 22 124/73 (90) 100 98.9 08/13/18 11:30 114 22 123/64 (83) 100 Intake and Output 08/13/18 08/14/18 19:00 07:00 Intake Total 2251.50 ml 1485.00 ml Output Total 1105 ml 850 ml Balance 1146.50 ml 635.00 ml IV Total 1851.50 ml 1185.00 ml Tube Feeding 300 ml 300 ml Other 100 ml Output Urine Total 905 ml 850 ml Chest Tube Drainage Total 200 ml General Appearance: no acute distress Respiratory/Chest: lungs clear, decreased breath sounds Cardiovascular: normal rate Abdomen: soft, non tender Microbiology Date/Time Source Procedure Growth Status 08/12/18 20:45 Drainage Fluid Gram Stain - Final Resulted 08/12/18 20:45 Drainage Fluid Body Fluid Culture - Preliminary NO GROWTH AFTER 24 HOURS Resulted Laboratory Tests 08/14/18 04:30: White Blood Count 11.8H, Red Blood Count 2.53L, Hemoglobin 7.3L, Hematocrit 21.4L, Mean Corpuscular Volume 85, Mean Corpuscular Hemoglobin 29.0, Mean Corpuscular Hemoglobin Concent 34.2, Red Cell Distribution Width 14.9H, Platelet Count 252, Mean Platelet Volume 6.8, Neutrophils (%) (Auto) , Lymphocytes (%) (Auto) , Monocytes (%) (Auto) , Eosinophils (%) (Auto) , Basophils (%) (Auto) , Differential Total Cells Counted 100, Neutrophils % ( Manual) 66, Lymphocytes % (Manual) 23, Monocytes % (Manual) 9, Eosinophils % ( Manual) 1, Basophils % (Manual) 0, Band Neutrophils 1, Nucleated Red Blood Cells 1, Platelet Estimate Adequate, Platelet Morphology Normal, Hypochromasia 2 +, Anisocytosis 1+, Sodium Level 145, Potassium Level 3.5, Chloride Level 111H, Carbon Dioxide Level 27, Anion Gap 7, Blood Urea Nitrogen 18, Creatinine 1.4H, Estimat Glomerular Filtration Rate , Glucose Level 124#H, Lactic Acid Level 2.40H, Calcium Level 8.2L, Magnesium Level 1.6L, Total Bilirubin 0.4, Aspartate Amino Transf (AST/SGOT) 53H, Alanine Aminotransferase (ALT/SGPT) 32, Alkaline Phosphatase 110, Troponin I 0.030, Total Protein 5.9L, Albumin 1.1L, Globulin 4.8, Albumin/Globulin Ratio 0.2L, Vancomycin Level Trough 21.9H 08/14/18 08:00: Lactic Acid Level 1.00 Current Medications Medications (Trade) Dose Ordered Sig/Eloy Route PRN Reason Start Time Stop Time Status Last Admin Dose Admin Acetaminophen (Tylenol) 650 mg Q4H PRN ORAL Mild Pain (Pain Scale 1-3) 08/12/18 10:30 09/08/18 10:29 Aspirin (ASA) 81 mg DAILY GT 08/13/18 09:00 09/08/18 08:59 08/13/18 09:02 Atorvastatin Calcium (Lipitor) 10 mg BEDTIME ORAL 08/12/18 21:00 09/08/18 20:59 08/13/18 21:09 Carbidopa/Levodopa (Sinemet 25/100) 1 tab BID GT 08/12/18 18:00 09/06/18 17:59 08/14/18 08:23 Chlorhexidine Gluconate (Bee-Hex 2%) 1 applic DAILY@1999 TOPIC 08/12/18 20:00 09/08/18 19:59 08/13/18 20:15 Dextrose (Dextrose 50%) 25 ml STAT PRN IV Hypoglycemia 08/12/18 10:15 09/11/18 10:14 Dextrose (Dextrose 50%) 50 ml STAT PRN IV Hypoglycemia 08/12/18 10:15 09/11/18 10:14 Donepezil HCl (Aricept) 10 mg DAILY ORAL 08/13/18 09:00 09/08/18 08:59 08/14/18 08:23 Finasteride (Proscar) 5 mg DAILY ORAL 08/13/18 09:00 09/08/18 08:59 08/14/18 08:23 Fludrocortisone Acetate (Florinef) 0.1 mg DAILY ORAL 08/13/18 09:00 09/08/18 08:59 08/14/18 10:01 Insulin Aspart (NovoLOG) EVERY 6 HOURS SUBQ 08/12/18 12:00 09/06/18 11:29 08/14/18 06:04 Lisinopril (Prinivil) 20 mg DAILY ORAL 08/13/18 09:00 09/08/18 08:59 Lorazepam (Ativan 2mg/ml 1ml) 0.5 mg Q2H PRN IV For Seizures 08/12/18 18:15 08/19/18 18:14 Metoprolol Tartrate (Lopressor) 50 mg Q12HR GT 08/12/18 21:00 09/09/18 20:59 08/13/18 21:09 Morphine Sulfate (Morphine Sulfate) 2 mg Q3H PRN IVP For Pain 08/12/18 16:30 08/19/18 16:29 Multivitamins (Multivitamins) 1 tab DAILY ORAL 08/13/18 09:00 09/08/18 08:59 08/14/18 08:22 Norepinephrine Bitartrate 8 mg/ Dextrose 500 ml @ 0 mls/hr Q24H IV 08/12/18 20:00 09/11/18 19:59 08/14/18 07:49 Pantoprazole (Protonix) 40 mg DAILY IVP 08/13/18 09:00 09/06/18 08:59 08/14/18 08:23 Piperacillin Sod/ Tazobactam Sod 3.375 gm/Dextrose 110 ml @ 27.5 mls/hr EVERY 8 HOURS IVPB 08/12/18 14:00 08/16/18 05:59 08/14/18 06:01 Quetiapine Fumarate (SEROquel) 25 mg DAILY ORAL 08/13/18 09:00 09/08/18 08:59 08/14/18 08:24 Rivaroxaban (Xarelto) 20 mg DAILY ORAL 08/13/18 09:00 09/09/18 08:59 08/13/18 08:49 Sodium Chloride 1,000 ml @ 50 mls/hr Q20H IV 08/13/18 11:30 09/12/18 11:29 08/14/18 06:04 Tamsulosin HCl (Flomax) 0.4 mg BEDTIME ORAL 08/12/18 21:00 09/08/18 20:59 08/13/18 21:09 Vancomycin HCl (Vanco rx to dose) 1 ea DAILY PRN MISC Per rx protocol 08/12/18 10:15 09/11/18 10:14 Vancomycin HCl 1 gm/Dextrose 275 ml @ 183.708 mls/hr Q24H IVPB 08/14/18 20:00 08/19/18 19:59 Harjeet Baptiste MD Aug 14, 2018 11:29
--- NOTE | 2018-08-14 13:14 | General Progress Note ---
Progress Note Progress Note Surgery: chest tube in satisfactory position; output > 125cc yesterday cont chest tube to suction AM CXR will need to keep on suction until drainage decreases. will then place to water seal and evaluate for tube removal. will follow. thank you Best Cody Aug 14, 2018 13:14
[2018-08-14] MEDS: Dyna-Hex 2% Top Sol 2oz TOPIC SCH (19:55)
[2018-08-14] MEDS ORDERED: Vancomycin 1gm/D5W 275ml IVPB SCH ×2 (20:00)
[2018-08-14] MEDS: Tamsulosin 0.4mg cap ORAL SCH (20:45)
--- NOTE | 2018-08-14 22:45 | Progress Note ---
DATE: 08/14/2018 CARDIOLOGY PROGRESS NOTE SUBJECTIVE: The patient's condition remains poor. He is orally intubated and mechanically ventilated in the intensive care unit and on pressor support. He has a chest tube in place. He is status post drainage of an empyema due to pneumonia. OBJECTIVE: VITAL SIGNS: Blood pressure 105/49, pulse 99, respirations 20, and temperature 99.2. LUNGS: Bilateral breath sounds with rhonchi. HEART: Regular rhythm. Rapid rate. Normal S1, S2 with no new murmur. ABDOMEN: Soft and nontender. The G-tube is intact. EXTREMITIES: Without edema. Peripheral perfusion is adequate. LABORATORY AND DIAGNOSTIC DATA: White count 11.8 and hemoglobin 7.3. ABG, pH 7.49, pCO2 38, and pO2 100. Sodium is 145, potassium 3.5, bicarb 27, BUN 18, and creatinine 1.4. Lactic acid is now normal and albumin is 1.1. IMPRESSION: 1. Empyema. 2. Pneumonia. 3. Respiratory failure. 4. Acute renal failure, recovered. 5. Dehydration and hypernatremia, improved. 6. Lactic acidosis, resolved. 7. Hypomagnesemia with a magnesium level 1.6. 8. Severe protein-calorie malnutrition. 9. Chronic diastolic congestive heart failure. 10. Secondary sinus tachycardia. 11. Critical and guarded. PLAN: 1. Nutrition by feeding tube. 2. Continue chest tube. 3. Continue hypotonic hydration. 4. Replace electrolytes as needed. 5. Anticoagulation resumed with rivaroxaban. Monitor for secondary bleeding complications. Jeremy Fried M.D. DR: INÉS JOB#: [id number] CC:
[2018-08-15] VITALS (29 sets, daily range): BP systolic 86–151; BP diastolic 41–71
[2018-08-15] MEDS: Piperacillin/Tazobactam 3.375 GM in D5W 110 ML IVPB SCH ×3 (05:33→21:28)
[2018-08-15] MEDS: NovoLOG Insulin Flexpen SUBQ SCH ×4 (05:34→23:39)
[2018-08-15 06:00] LABS: HEMATOCRIT 24.2 % (42.0-52.0); HEMOGLOBIN 7.8 G/DL (14.2-18.0); MEAN CORPUSCULAR VOLUME 86 FL (80-99); PLATELET COUNT 236 K/UL (150-450); RED BLOOD COUNT 2.81 M/UL (4.70-6.10); RED CELL DISTRIBUTION WIDTH 16.1 % (11.6-14.8); WHITE BLOOD COUNT 9.7 K/UL (4.8-10.8)
[2018-08-15 06:04] LABS: ALANINE AMINOTRANSFERASE 33 U/L (12-78); ALBUMIN 1.2 G/DL (3.4-5.0); ALBUMIN/GLOBULIN RATIO 0.2 (1.0-2.7); ALKALINE PHOSPHATASE 120 U/L (46-116); ANION GAP 6 mmol/L (5-15); ASPARTATE AMINO TRANSFERASE 54 U/L (15-37); BILIRUBIN,TOTAL 0.5 MG/DL (0.2-1.0); BLOOD UREA NITROGEN 18 mg/dL (7-18); CALCIUM 8.5 MG/DL (8.5-10.1); CARBON DIOXIDE 28 MMOL/L (21-32); CHLORIDE 108 MMOL/L (98-107); CREATININE 1.3 MG/DL (0.55-1.30); POTASSIUM 3.6 MMOL/L (3.5-5.1); SODIUM 142 MMOL/L (136-145)
--- NOTE | 2018-08-15 08:56 | Diagnostic Imaging Report ---
Indication: Dyspnea Technique: One view of the chest Comparison: 08/13/2018 Findings: Endotracheal tube, left arm PICC, left chest tube remain. Bilateral pleural opacity persists. Semilunar lucency again seen over the left pleural space, is probably external to the patient, but could represent a small collection of gas within the pleural space, unchanged in any case. The right lung and pleural space remain clear. The heart size is normal. Impression: Unchanged, over 2 days, findings as above.
[2018-08-15] MEDS: Metoprolol Tartrate 50mg tab GT SCH ×2 (09:00→20:30)
[2018-08-15] MEDS: Lisinopril 20mg tab ORAL SCH (09:00)
[2018-08-15] MEDS: Pantoprazole Inj IVP SCH (09:50)
[2018-08-15] MEDS: Levodopa/Carbidopa 25/100 tab GT SCH ×2 (09:51→18:00)
[2018-08-15] MEDS: Aspirin Baby 81mg GT SCH (09:51)
[2018-08-15] MEDS: Xarelto 10mg tab ORAL SCH (09:51)
[2018-08-15] MEDS: Donepezil 10mg tab ORAL SCH (09:52)
--- NOTE | 2018-08-15 10:30 | General Progress Note ---
Progress Note Progress Note Surgery: chest tube in satisfactory position; output > 300cc cont chest tube to suction AM CXR will need to keep on suction until drainage decreases. will then place to water seal and evaluate for tube removal. will follow. thank you Best Cody Aug 15, 2018 10:30
--- NOTE | 2018-08-15 15:59 | Pulmonology Progress Note ---
Assessment/Plan Assessment/Plan 1. Septic shock. 2. Dehydration with azotemia. 3. Left-sided pneumonia and pleural effusion. 4. Respiratory failure, requiring BiPAP. 5. Parkinson disease with dementia. 6. History of hemorrhagic stroke. 7. Possible history of DVT. 8. Diastolic dysfunction and LVH. 9. History of adrenocortical insufficiency. 10. Anemia no fevers, no seizures in ICU intubated - tolerating weaning off levophed empyema w GNR - c/s neg (on abx) chest tube draining >300cc extubate - DNR Subjective ROS Limited/Unobtainable: Yes Constitutional: Denies: fever Allergies: Coded Allergies: No Known Allergies (Verified , 03/19/15) Objective Last 24 Hour Vital Signs Date Time Temp Pulse Resp B/P (MAP) Pulse Ox O2 Delivery O2 Flow Rate FiO2 08/15/18 15:00 98 20 94/41 (58) 100 08/15/18 14:53 83 23 08/15/18 13:10 73 21 08/15/18 13:00 99.4 82 18 86/65 (72) 100 99.4 08/15/18 12:00 Mechanical Ventilator 08/15/18 12:00 82 20 106/50 (68) 99 08/15/18 12:00 78 08/15/18 11:00 80 20 105/45 (65) 99 08/15/18 10:46 78 22 08/15/18 10:00 81 24 103/42 (62) 100 08/15/18 09:00 83 101/46 08/15/18 09:00 101/46 08/15/18 09:00 82 24 101/46 (64) 100 08/15/18 08:59 98 08/15/18 08:50 88 20 30 08/15/18 08:00 30 08/15/18 08:00 99.0 84 20 97/41 (59) 100 99.0 08/15/18 08:00 Mechanical Ventilator 08/15/18 08:00 81 08/15/18 07:39 84 20 30 08/15/18 07:00 72 20 91/43 (59) 100 08/15/18 06:00 78 20 96/43 (60) 100 08/15/18 05:30 88 16 105/48 (67) 100 08/15/18 05:00 85 20 111/47 (68) 100 08/15/18 04:50 77 20 30 08/15/18 04:30 90 24 117/52 (73) 100 08/15/18 04:00 30 08/15/18 04:00 99.3 82 20 102/41 (61) 100 99.3 08/15/18 04:00 80 08/15/18 04:00 Mechanical Ventilator 08/15/18 03:30 81 19 97/43 (61) 100 08/15/18 03:00 87 20 100/43 (62) 100 08/15/18 02:50 78 20 30 08/15/18 02:00 82 20 103/46 (65) 100 08/15/18 01:36 86 20 30 08/15/18 01:30 85 20 119/63 (81) 100 08/15/18 01:00 88 23 107/47 (67) 100 08/15/18 00:30 79 20 92/41 (58) 100 08/15/18 00:00 Mechanical Ventilator 08/15/18 00:00 79 20 92/44 (60) 100 08/15/18 00:00 82 08/15/18 00:00 30 08/14/18 23:30 99.4 83 20 93/44 (60) 100 99.4 08/14/18 23:30 85 20 93/44 (60) 100 08/14/18 23:00 85 20 93/44 (60) 100 08/14/18 23:00 87 20 30 08/14/18 22:30 90 20 93/47 (62) 100 08/14/18 22:00 90 20 119/52 (74) 100 08/14/18 21:30 89 19 114/56 (75) 100 08/14/18 21:13 81 20 30 08/14/18 21:00 80 20 115/53 (73) 100 18 20:46 91 109/23 08/14/18 20:00 Mechanical Ventilator 08/14/18 20:00 30 08/14/18 20:00 94 17 103/50 (67) 100 08/14/18 20:00 85 08/14/18 19:30 99.6 94 17 100/46 (64) 100 99.6 08/14/18 19:00 85 17 108/60 (76) 100 08/14/18 18:56 93 20 30 08/14/18 18:30 88 17 106/55 (72) 100 08/14/18 18:00 89 17 105/55 (72) 100 08/14/18 17:30 98.9 91 17 101/47 (65) 100 98.9 08/14/18 17:00 89 17 110/60 (77) 100 08/14/18 16:55 84 20 30 08/14/18 16:30 91 17 108/55 (72) 100 08/14/18 16:00 30 08/14/18 16:00 90 17 105/50 (68) 100 08/14/18 16:00 88 08/14/18 16:00 Mechanical Ventilator 08/14/18 16:00 Mechanical Ventilator Intake and Output 08/14/18 08/15/18 19:00 07:00 Intake Total 1260.00 ml 950.0 ml Output Total 880 ml 805 ml Balance 380.00 ml 145.0 ml IV Total 960.00 ml 650.0 ml Tube Feeding 300 ml 300 ml Output Urine Total 880 ml 505 ml Chest Tube Drainage Total 300 ml # Bowel Movements 2 General Appearance: no acute distress HEENT: atraumatic Respiratory/Chest: lungs clear Cardiovascular: normal rate Abdomen: soft, non tender Microbiology Date/Time Source Procedure Growth Status 08/14/18 12:20 Pleural Fluid Gram Stain - Final Resulted 08/14/18 12:20 Pleural Fluid Body Fluid Culture - Preliminary NO GROWTH AFTER 24 HOURS Resulted 08/12/18 20:45 Drainage Fluid Gram Stain - Final Resulted 08/12/18 20:45 Drainage Fluid Body Fluid Culture - Preliminary NO GROWTH AFTER 48 HOURS Resulted Laboratory Tests 08/14/18 17:19: Arterial Blood pH 7.490H, Arterial Blood Partial Pressure CO2 37.7, Arterial Blood Partial Pressure O2 103.4H, Arterial Blood HCO3 28.1H, Arterial Blood Oxygen Saturation 97.7, Arterial Blood Base Excess 4.4, Malvin Test Positive 08/15/18 05:23: White Blood Count 9.7, Red Blood Count 2.81L, Hemoglobin 7.8L, Hematocrit 24.2L , Mean Corpuscular Volume 86, Mean Corpuscular Hemoglobin 27.8, Mean Corpuscular Hemoglobin Concent 32.3, Red Cell Distribution Width 16.1H, Platelet Count 236, Mean Platelet Volume 7.0, Neutrophils (%) (Auto) , Lymphocytes (%) (Auto) , Monocytes (%) (Auto) , Eosinophils (%) (Auto) , Basophils (%) (Auto) , Differential Total Cells Counted 100, Neutrophils % ( Manual) 67, Lymphocytes % (Manual) 20, Monocytes % (Manual) 8, Eosinophils % ( Manual) 0, Basophils % (Manual) 0, Band Neutrophils 5, Platelet Estimate Adequate, Platelet Morphology Normal, Hypochromasia 1+, Anisocytosis 1+, Sodium Level 142, Potassium Level 3.6, Chloride Level 108H, Carbon Dioxide Level 28, Anion Gap 6, Blood Urea Nitrogen 18, Creatinine 1.3, Estimat Glomerular Filtration Rate , Glucose Level 109H, Calcium Level 8.5, Magnesium Level 2.2, Total Bilirubin 0.5, Aspartate Amino Transf (AST/SGOT) 54H, Alanine Aminotransferase (ALT/SGPT) 33, Alkaline Phosphatase 120H, Pro-B-Type Natriuretic Peptide 1342H, Total Protein 6.6, Albumin 1.2L, Globulin 5.4, Albumin/Globulin Ratio 0.2L 08/15/18 10:34: Arterial Blood pH 7.500H, Arterial Blood Partial Pressure CO2 33.5L, Arterial Blood Partial Pressure O2 115.9H, Arterial Blood HCO3 25.6, Arterial Blood Oxygen Saturation 97.9, Arterial Blood Base Excess 2.3, Malvin Test Positive Current Medications Medications (Trade) Dose Ordered Sig/Eloy Route PRN Reason Start Time Stop Time Status Last Admin Dose Admin Acetaminophen (Tylenol) 650 mg Q4H PRN ORAL Mild Pain (Pain Scale 1-3) 08/12/18 10:30 09/08/18 10:29 08/14/18 14:02 Aspirin (ASA) 81 mg DAILY GT 08/13/18 09:00 09/08/18 08:59 08/15/18 09:51 Atorvastatin Calcium (Lipitor) 10 mg BEDTIME ORAL 08/12/18 21:00 09/08/18 20:59 08/14/18 20:46 Carbidopa/Levodopa (Sinemet 25/100) 1 tab BID GT 08/12/18 18:00 09/06/18 17:59 08/15/18 09:51 Chlorhexidine Gluconate (Bee-Hex 2%) 1 applic DAILY@1999 TOPIC 08/12/18 20:00 09/08/18 19:59 08/14/18 19:55 Dextrose (Dextrose 50%) 25 ml STAT PRN IV Hypoglycemia 08/12/18 10:15 09/11/18 10:14 Dextrose (Dextrose 50%) 50 ml STAT PRN IV Hypoglycemia 08/12/18 10:15 09/11/18 10:14 Donepezil HCl (Aricept) 10 mg DAILY ORAL 08/13/18 09:00 09/08/18 08:59 08/15/18 09:52 Finasteride (Proscar) 5 mg DAILY ORAL 08/13/18 09:00 09/08/18 08:59 08/15/18 09:51 Fludrocortisone Acetate (Florinef) 0.1 mg DAILY ORAL 08/13/18 09:00 09/08/18 08:59 08/15/18 09:52 Insulin Aspart (NovoLOG) EVERY 6 HOURS SUBQ 08/12/18 12:00 09/06/18 11:29 08/15/18 12:22 Lisinopril (Prinivil) 20 mg DAILY ORAL 08/13/18 09:00 09/08/18 08:59 Lorazepam (Ativan 2mg/ml 1ml) 0.5 mg Q2H PRN IV For Seizures 08/12/18 18:15 08/19/18 18:14 Metoprolol Tartrate (Lopressor) 50 mg Q12HR GT 08/12/18 21:00 09/09/18 20:59 08/14/18 20:46 Morphine Sulfate (Morphine Sulfate) 2 mg Q3H PRN IVP For Pain 08/12/18 16:30 08/19/18 16:29 Multivitamins (Multivitamins) 1 tab DAILY ORAL 08/13/18 09:00 09/08/18 08:59 08/15/18 09:51 Norepinephrine Bitartrate 8 mg/ Dextrose 500 ml @ 0 mls/hr Q24H IV 08/12/18 20:00 09/11/18 19:59 08/14/18 07:49 Pantoprazole (Protonix) 40 mg DAILY IVP 08/13/18 09:00 09/06/18 08:59 08/15/18 09:50 Piperacillin Sod/ Tazobactam Sod 3.375 gm/Dextrose 110 ml @ 27.5 mls/hr EVERY 8 HOURS IVPB 08/12/18 14:00 08/20/18 13:59 08/15/18 14:00 Quetiapine Fumarate (SEROquel) 25 mg DAILY ORAL 08/13/18 09:00 09/08/18 08:59 08/15/18 09:51 Rivaroxaban (Xarelto) 20 mg DAILY ORAL 08/13/18 09:00 09/09/18 08:59 08/15/18 09:51 Sodium Chloride 1,000 ml @ 50 mls/hr Q20H IV 08/13/18 11:30 09/12/18 11:29 08/15/18 04:19 Tamsulosin HCl (Flomax) 0.4 mg BEDTIME ORAL 08/12/18 21:00 09/08/18 20:59 08/14/18 20:45 Harjeet Baptiste MD Aug 15, 2018 15:59
--- NOTE | 2018-08-15 16:45 | Progress Note ---
DATE: 08/15/2018 CARDIOLOGY PROGRESS NOTE SUBJECTIVE: The patient remains in the intensive care unit. Condition remains critical with guarded prognosis. He is on full ventilator support. Chest tube remains in the right side. OBJECTIVE: VITAL SIGNS: Blood pressure 101/46, pulse 82, respiratory rate 24 and afebrile. Still on pressor support. Monitor, sinus rhythm and sinus tachycardia. LUNGS: Coarse breath sounds. Scattered rhonchi. Poorly responsive. HEART: Regular rhythm and rate. Normal S1 and S2. ABDOMEN: Soft. G-tube intact. EXTREMITIES: Trace edema. LABORATORY AND DIAGNOSTIC DATA: White count 9.7 and hemoglobin 7.8. ABG, 7.50, 33 and 115. Sodium 142, potassium 3.5, bicarbonate 28, magnesium 2.2, BUN 18, creatinine 1.3 and glucose 109. Pro-natriuretic peptide 1300. Albumin 1.2. IMPRESSION: 1. Pneumothorax with chest tube. 2. Respiratory failure. 3. Sepsis with shock. 4. Acute diastolic congestive heart failure, now compensated. 5. Aspiration pneumonia. 6. Dehydration with azotemia, resolved. 7. History of DVT now with recanalized clots in lower extremities. 8. History of adrenocortical insufficiency. 9. Anemia, multifactorial. PLAN: 1. Ventilator support. 2. Taper off pressors. 3. Antimicrobials. 4. Chest tube management. 5. Nutrition by feeding tube. 6. Continue full anticoagulation, observe for signs of bleeding. 7. Consider packed red blood cell transfusion for hemoglobin level close to 7. 8. Hold anticoagulation if signs of bleeding noted. Jeremy Fried M.D. DR: LEONARDO JOB#: [id number] CC:
[2018-08-15] MEDS: Albuterol/Ipratropium 3ml neb HHN PRN ×2 (18:33→23:32)
[2018-08-15] MEDS ORDERED: Racemic EPINEPHrine 2.25% 0.5ml HHN SCH (19:45)
[2018-08-15] MEDS: Dyna-Hex 2% Top Sol 2oz TOPIC SCH (19:54)
[2018-08-15] MEDS: NOREPINEPHRINE IV SCH (20:00)
[2018-08-15] MEDS: D5W IV SCH (20:00)
[2018-08-15] MEDS: Tamsulosin 0.4mg cap ORAL SCH (20:29)
[2018-08-15] MEDS: Morphine Sulfate 2mg/ml Inj IVP PRN (21:25)
[2018-08-16] VITALS (23 sets, daily range): BP systolic 99–146; BP diastolic 43–74
[2018-08-16] MEDS: Morphine Sulfate 2mg/ml Inj IVP PRN ×3 (01:59→14:09)
[2018-08-16] MEDS: NovoLOG Insulin Flexpen SUBQ SCH ×3 (05:31→18:25)
[2018-08-16] MEDS: Piperacillin/Tazobactam 3.375 GM in D5W 110 ML IVPB SCH ×3 (05:32→21:41)
[2018-08-16] MEDS: Lisinopril 20mg tab ORAL SCH (08:36)
[2018-08-16] MEDS: Donepezil 10mg tab ORAL SCH (08:36)
[2018-08-16] MEDS: Levodopa/Carbidopa 25/100 tab GT SCH ×3 (08:37→18:24)
[2018-08-16] MEDS: Aspirin Baby 81mg GT SCH (08:38)
[2018-08-16] MEDS: Metoprolol Tartrate 50mg tab GT SCH ×2 (08:38→21:40)
[2018-08-16] MEDS: Xarelto 10mg tab ORAL SCH (08:39)
[2018-08-16] MEDS: Pantoprazole Inj IVP SCH (08:40)
[2018-08-16] MEDS ORDERED: Sterile Water Irrig 1000ml IRRIG ONE (09:47)
[2018-08-16] MEDS ORDERED: Tubing IV Secondary IV ONE ×2 (09:47→15:39)
[2018-08-16] MEDS ORDERED: NS 500ML ONE (09:47)
--- NOTE | 2018-08-16 10:50 | Diagnostic Imaging Report ---
Indication: Dyspnea Comparison: 08/15/2018 A single view chest radiograph was obtained. Findings: Left hemithorax now completely opacified. Left chest tube appears unchanged. PICC line stable. Patient has been extubated suggestion day. IMPRESSION: Development of complete opacification of the left hemithorax presumably due to increasing pleural effusion and/or atelectasis
--- NOTE | 2018-08-16 14:07 | General Surgery Progress Note ---
General Surgery-Progress Note Subjective Procedure Performed left chest tube insertion Additional Comments extubated. on face mask Objective Last 24 Hour Vital Signs Date Time Temp Pulse Resp B/P (MAP) Pulse Ox O2 Delivery O2 Flow Rate FiO2 08/16/18 13:00 86 20 126/58 (80) 100 08/16/18 12:00 T-piece 8.0 Venturi Mask Venturi Mask Venturi Mask 08/16/18 12:00 98.6 85 30 126/59 (81) 98 98.6 08/16/18 11:00 85 20 114/59 (77) 97 08/16/18 10:00 86 44 99/43 (61) 98 08/16/18 09:00 86 44 122/57 (78) 98 08/16/18 08:38 99 145/65 08/16/18 08:36 145/65 08/16/18 08:05 98.8 08/16/18 08:00 6.0 28 08/16/18 08:00 T-piece 8.0 Venturi Mask Venturi Mask Venturi Mask 08/16/18 08:00 98.6 96 43 145/65 (91) 98 98.6 08/16/18 08:00 101 08/16/18 07:45 98.8 08/16/18 07:00 100 45 141/68 (92) 98 08/16/18 06:00 103 28 140/64 (89) 98 08/16/18 05:00 101 35 136/67 (90) 97 08/16/18 04:30 101 57 134/65 (88) 97 08/16/18 04:00 T-piece 8.0 Venturi Mask Venturi Mask Venturi Mask 08/16/18 04:00 8.0 28 08/16/18 04:00 101 08/16/18 04:00 98.6 101 34 141/65 (90) 94 98.6 08/16/18 03:30 101 39 141/62 (88) 95 08/16/18 03:00 100 46 132/66 (88) 96 08/16/18 02:30 103 49 146/66 (92) 99 08/16/18 02:00 101 47 131/55 (80) 100 08/16/18 01:30 98 47 111/52 (71) 99 08/16/18 01:00 97 44 127/63 (84) 99 18 00:00 8.0 28 08/16/18 00:00 T-piece 8.0 Venturi Mask Venturi Mask Venturi Mask 08/16/18 00:00 99 39 127/46 (73) 100 18 00:00 103 08/15/18 23:42 101 40 100 Venturi Mask 8.0 28 18 23:32 102 35 100 Venturi Mask 8.0 28 08/15/18 23:00 103 45 137/71 (93) 97 18 22:00 94 39 131/61 (84) 100 18 21:00 92 30 113/57 (75) 100 08/15/18 20:30 108 115/53 08/15/18 20:06 112 31 100 Nasal Cannula 2.0 28 08/15/18 20:00 T-piece 8.0 Venturi Mask Venturi Mask Venturi Mask 08/15/18 20:00 8.0 28 08/15/18 20:00 117 08/15/18 20:00 107 32 115/53 (73) 100 18 20:00 115/53 08/15/18 19:50 114 23 97 Nasal Cannula 2.0 28 08/15/18 19:00 110 28 126/60 (82) 99 08/15/18 18:43 116 22 100 Nasal Cannula 2.0 28 18 18:31 Nasal Cannula 2.0 28 18 18:31 115 31 Nasal Cannula 2.0 28 18 18:31 96 Nasal Cannula 2.0 28 18 18:31 115 31 96 Nasal Cannula 2.0 28 18 18:00 99.0 88 22 120/62 (81) 100 99.0 18 17:00 73 20 115/51 (72) 100 08/15/18 17:00 Nasal Cannula 2.0 08/15/18 16:00 Mechanical Ventilator 08/15/18 16:00 88 08/15/18 16:00 85 19 112/66 (81) 100 18 15:09 Nasal Cannula 2.0 08/15/18 15:01 97 Nasal Cannula 2.0 08/15/18 15:00 98 20 94/41 (58) 100 08/15/18 14:53 83 23 I&O Intake and Output 08/15/18 08/16/18 19:00 07:00 Intake Total 615.0 ml 500.0 ml Output Total 465 ml 490 ml Balance 150.0 ml 10.0 ml IV Total 315.0 ml 165.0 ml Tube Feeding 300 ml 300 ml Other 35 ml Output Urine Total 465 ml 490 ml # Bowel Movements 3 3 Dressing: other Wound: other Drains: other Cardiovascular: RSR Respiratory: decreased breath sounds Abdomen: soft, non-tender, present bowel sounds Extremities: other Plan Problems: (1) Pleural effusion Assessment & Plan: left chest tube functional. CXR reviewed output of tube still too high for removal cont on suction will monitor AM CXR DNAR / Comfort care thank you Best Cody Aug 16, 2018 14:07
--- NOTE | 2018-08-16 14:56 | Pulmonology Progress Note ---
Assessment/Plan Assessment/Plan 1. Septic shock. 2. Dehydration with azotemia. 3. Left-sided pneumonia and empyema. 4. Respiratory failure, requiring intubation. 5. Parkinson disease with dementia. 6. History of hemorrhagic stroke. 7. Possible history of DVT. 8. Diastolic dysfunction and LVH. 9. History of adrenocortical insufficiency. 10. Anemia extubated, stridor better w morphine family decided on comfort care to medical floor DNR no more labs or xrays Subjective ROS Limited/Unobtainable: Yes Allergies: Coded Allergies: No Known Allergies (Verified , 03/19/15) Objective Last 24 Hour Vital Signs Date Time Temp Pulse Resp B/P (MAP) Pulse Ox O2 Delivery O2 Flow Rate FiO2 08/16/18 14:09 98.2 08/16/18 14:00 89 34 118/55 (76) 100 08/16/18 13:00 86 20 126/58 (80) 100 08/16/18 12:00 T-piece 8.0 Venturi Mask Venturi Mask Venturi Mask 08/16/18 12:00 6.0 28 08/16/18 12:00 98.6 85 30 126/59 (81) 98 98.6 08/16/18 11:00 85 20 114/59 (77) 97 08/16/18 10:00 86 44 99/43 (61) 98 08/16/18 09:00 86 44 122/57 (78) 98 08/16/18 08:38 99 145/65 08/16/18 08:36 145/65 08/16/18 08:05 98.8 08/16/18 08:00 6.0 28 08/16/18 08:00 T-piece 8.0 Venturi Mask Venturi Mask Venturi Mask 08/16/18 08:00 98.6 96 43 145/65 (91) 98 98.6 08/16/18 08:00 101 08/16/18 07:45 98.8 08/16/18 07:00 100 45 141/68 (92) 98 08/16/18 06:00 103 28 140/64 (89) 98 08/16/18 05:00 101 35 136/67 (90) 97 08/16/18 04:30 101 57 134/65 (88) 97 08/16/18 04:00 T-piece 8.0 Venturi Mask Venturi Mask Venturi Mask 08/16/18 04:00 8.0 28 08/16/18 04:00 101 08/16/18 04:00 98.6 101 34 141/65 (90) 94 98.6 08/16/18 03:30 101 39 141/62 (88) 95 08/16/18 03:00 100 46 132/66 (88) 96 08/16/18 02:30 103 49 146/66 (92) 99 08/16/18 02:00 101 47 131/55 (80) 100 08/16/18 01:30 98 47 111/52 (71) 99 08/16/18 01:00 97 44 127/63 (84) 99 08/16/18 00:00 8.0 28 08/16/18 00:00 T-piece 8.0 Venturi Mask Venturi Mask Venturi Mask 08/16/18 00:00 99 39 127/46 (73) 100 08/16/18 00:00 103 08/15/18 23:42 101 40 100 Venturi Mask 8.0 28 08/15/18 23:32 102 35 100 Venturi Mask 8.0 28 08/15/18 23:00 103 45 137/71 (93) 97 08/15/18 22:00 94 39 131/61 (84) 100 08/15/18 21:00 92 30 113/57 (75) 100 18 20:30 108 115/53 08/15/18 20:06 112 31 100 Nasal Cannula 2.0 28 08/15/18 20:00 T-piece 8.0 Venturi Mask Venturi Mask Venturi Mask 08/15/18 20:00 8.0 28 18 20:00 117 18 20:00 107 32 115/53 (73) 100 2018 20:00 115/53 18 19:50 114 23 97 Nasal Cannula 2.0 28 08/15/18 19:00 110 28 126/60 (82) 99 18 18:43 116 22 100 Nasal Cannula 2.0 28 18 18:31 Nasal Cannula 2.0 28 18 18:31 115 31 Nasal Cannula 2.0 28 18 18:31 96 Nasal Cannula 2.0 28 08/15/18 18:31 115 31 96 Nasal Cannula 2.0 28 08/15/18 18:00 99.0 88 22 120/62 (81) 100 99.0 08/15/18 17:00 73 20 115/51 (72) 100 08/15/18 17:00 Nasal Cannula 2.0 08/15/18 16:00 Mechanical Ventilator 08/15/18 16:00 88 08/15/18 16:00 85 19 112/66 (81) 100 08/15/18 15:09 Nasal Cannula 2.0 08/15/18 15:01 97 Nasal Cannula 2.0 08/15/18 15:00 98 20 94/41 (58) 100 Intake and Output 08/15/18 08/16/18 19:00 07:00 Intake Total 615.0 ml 500.0 ml Output Total 465 ml 490 ml Balance 150.0 ml 10.0 ml IV Total 315.0 ml 165.0 ml Tube Feeding 300 ml 300 ml Other 35 ml Output Urine Total 465 ml 490 ml # Bowel Movements 3 3 General Appearance: no acute distress Respiratory/Chest: decreased breath sounds, stridor Cardiovascular: normal rate Abdomen: soft, non tender Microbiology Date/Time Source Procedure Growth Status 08/14/18 12:20 Pleural Fluid Gram Stain - Final Resulted 08/14/18 12:20 Pleural Fluid Body Fluid Culture - Preliminary NO GROWTH AFTER 48 HOURS Resulted Current Medications Medications (Trade) Dose Ordered Sig/Eloy Route PRN Reason Start Time Stop Time Status Last Admin Dose Admin Acetaminophen (Tylenol) 650 mg Q4H PRN ORAL Mild Pain (Pain Scale 1-3) 08/12/18 10:30 09/08/18 10:29 08/14/18 14:02 Albuterol/ Ipratropium (Albuterol/ Ipratropium) 3 ml Q4H PRN HHN Shortness of Breath 08/15/18 18:15 08/20/18 18:14 08/15/18 23:32 Aspirin (ASA) 81 mg DAILY GT 08/13/18 09:00 09/08/18 08:59 08/16/18 08:38 Atorvastatin Calcium (Lipitor) 10 mg BEDTIME ORAL 08/12/18 21:00 09/08/18 20:59 08/15/18 20:29 Carbidopa/Levodopa (Sinemet 25/) 1 tab BID GT 08/12/18 18:00 09/06/18 17:59 08/16/18 08:37 Chlorhexidine Gluconate (Bee-Hex 2%) 1 applic DAILY@2000 TOPIC 08/12/18 20:00 09/08/18 19:59 08/15/18 19:54 Dextrose (Dextrose 50%) 25 ml STAT PRN IV Hypoglycemia 08/12/18 10:15 09/11/18 10:14 Dextrose (Dextrose 50%) 50 ml STAT PRN IV Hypoglycemia 08/12/18 10:15 09/11/18 10:14 Donepezil HCl (Aricept) 10 mg DAILY ORAL 08/13/18 09:00 09/08/18 08:59 08/16/18 08:36 Finasteride (Proscar) 5 mg DAILY ORAL 08/13/18 09:00 09/08/18 08:59 08/16/18 08:37 Fludrocortisone Acetate (Florinef) 0.1 mg DAILY ORAL 08/13/18 09:00 09/08/18 08:59 08/16/18 08:37 Insulin Aspart (NovoLOG) EVERY 6 HOURS SUBQ 08/12/18 12:00 09/06/18 11:29 08/16/18 13:14 Lisinopril (Prinivil) 20 mg DAILY ORAL 08/13/18 09:00 09/08/18 08:59 08/16/18 08:36 Lorazepam (Ativan 2mg/ml 1ml) 0.5 mg Q2H PRN IV For Seizures 08/12/18 18:15 08/19/18 18:14 Metoprolol Tartrate (Lopressor) 50 mg Q12HR GT 08/12/18 21:00 09/09/18 20:59 08/16/18 08:38 Morphine Sulfate (Morphine Sulfate) 2 mg Q3H PRN IVP For Pain 08/15/18 20:30 08/22/18 20:29 08/16/18 14:09 Multivitamins (Multivitamins) 1 tab DAILY ORAL 08/13/18 09:00 09/08/18 08:59 08/16/18 08:36 Norepinephrine Bitartrate 8 mg/ Dextrose 500 ml @ 0 mls/hr Q24H IV 08/12/18 20:00 09/11/18 19:59 08/14/18 07:49 Pantoprazole (Protonix) 40 mg DAILY IVP 08/13/18 09:00 09/06/18 08:59 08/16/18 08:40 Piperacillin Sod/ Tazobactam Sod 3.375 gm/Dextrose 110 ml @ 27.5 mls/hr EVERY 8 HOURS IVPB 08/12/18 14:00 08/20/18 13:59 08/16/18 13:15 Quetiapine Fumarate (SEROquel) 25 mg DAILY ORAL 08/13/18 09:00 09/08/18 08:59 08/16/18 08:37 Rivaroxaban (Xarelto) 20 mg DAILY ORAL 08/13/18 09:00 09/09/18 08:59 08/16/18 08:39 Tamsulosin HCl (Flomax) 0.4 mg BEDTIME ORAL 08/12/18 21:00 09/08/18 20:59 08/15/18 20:29 Harjeet Baptiste MD Aug 16, 2018 14:56
[2018-08-16] MEDS ORDERED: NS 275ml ONE (15:39)
[2018-08-16] MEDS ORDERED: 1/2 NS 1000ml IV ONE (15:39)
[2018-08-16] MEDS ORDERED: LORazepam Inj 2mg/ml 1ml IV PRN (17:30)
[2018-08-16] MEDS ORDERED: Albuterol/Ipratropium 3ml neb HHN PRN (17:30)
[2018-08-16] MEDS ORDERED: Morphine Sulfate 2mg/ml Inj IVP PRN (17:30)
[2018-08-16] MEDS: Dyna-Hex 2% Top Sol 2oz TOPIC SCH (21:39)
[2018-08-16] MEDS: Tamsulosin 0.4mg cap ORAL SCH (21:40)
[2018-08-17] VITALS: BP 140/73
[2018-08-17 04:00] VITALS: BP 140/73
[2018-08-17] MEDS: Piperacillin/Tazobactam 3.375 GM in D5W 110 ML IVPB SCH ×3 (05:37→22:43)
[2018-08-17] MEDS: NovoLOG Insulin Flexpen SUBQ SCH ×4 (05:42→18:27)
[2018-08-17 08:00] VITALS: BP 135/75
[2018-08-17] MEDS: Xarelto 10mg tab ORAL SCH (09:17)
[2018-08-17] MEDS: Aspirin Baby 81mg GT SCH (09:18)
[2018-08-17] MEDS: Metoprolol Tartrate 50mg tab GT SCH ×2 (09:18→22:42)
[2018-08-17] MEDS: Levodopa/Carbidopa 25/100 tab GT SCH ×2 (09:18→18:25)
[2018-08-17] MEDS: Donepezil 10mg tab ORAL SCH (09:18)
--- NOTE | 2018-08-17 11:21 | Diagnostic Imaging Report ---
INDICATION: Chest pain COMPARISON: None FINDINGS: Single frontal view demonstrates enlarged heart size. Left peripherally inserted central venous catheter with tip in the superior vena cava. Interval decrease in opacification of the left hemithorax, stable left chest tube. Increasing opacity in the right hemithorax. The visualized osseous structures are within normal limits. IMPRESSION: Enlarged heart size. Left peripherally inserted central venous catheter with tip in the superior vena cava. Interval decrease in opacification of the left hemithorax, stable left chest tube. Increasing opacity in the right hemithorax.
--- NOTE | 2018-08-17 11:44 | General Surgery Progress Note ---
General Surgery-Progress Note Subjective Procedure Performed left chest tube insertion Additional Comments downgraded. stable for now. cxr reviewed. ct output decreased Objective Last 24 Hour Vital Signs Date Time Temp Pulse Resp B/P (MAP) Pulse Ox O2 Delivery O2 Flow Rate FiO2 08/17/18 09:18 97 135/75 08/17/18 09:00 Nasal Cannula 2.0 08/17/18 08:02 Nasal Cannula 2.0 28 08/17/18 08:02 97 22 Nasal Cannula 2.0 28 08/17/18 08:02 97 Nasal Cannula 2.0 28 08/17/18 08:00 98.4 103 20 135/75 (95) 99 98.4 08/17/18 04:00 97.7 105 20 140/73 (95) 97 97.7 08/17/18 00:00 98.2 104 20 140/73 (95) 97 98.2 08/16/18 21:40 102 144/74 08/16/18 21:00 Nasal Cannula 2.0 Nasal Cannula 2.0 Nasal Cannula 2.0 Nasal Cannula 2.0 08/16/18 20:00 97.9 102 20 144/74 (97) 96 97.9 08/16/18 19:46 98 24 Nasal Cannula 2.0 28 08/16/18 19:46 97 Nasal Cannula 2.0 28 08/16/18 19:46 Nasal Cannula 2.0 28 08/16/18 17:00 97 23 127/57 (80) 99 08/16/18 16:00 6.0 28 08/16/18 16:00 97.8 85 28 132/59 (83) 98 97.8 08/16/18 16:00 65 08/16/18 16:00 T-piece 8.0 Venturi Mask Venturi Mask Venturi Mask 08/16/18 15:00 86 40 134/65 (88) 100 08/16/18 14:39 97.8 08/16/18 14:09 98.2 08/16/18 14:00 89 34 118/55 (76) 100 08/16/18 13:00 86 20 126/58 (80) 100 08/16/18 12:00 85 08/16/18 12:00 T-piece 8.0 Venturi Mask Venturi Mask Venturi Mask 08/16/18 12:00 6.0 28 08/16/18 12:00 98.6 85 30 126/59 (81) 98 98.6 I&O Intake and Output 08/16/18 08/17/18 19:00 07:00 Intake Total 440.0 ml 587.5 ml Output Total 595 ml 878 ml Balance -155.0 ml -290.5 ml Free Water 150 ml IV Total 165.0 ml 137.5 ml Tube Feeding 275 ml 300 ml Output Urine Total 475 ml 750 ml Chest Tube Drainage Total 120 ml 128 ml # Bowel Movements 4 2 Dressing: saturated Wound: clean Drains: other Cardiovascular: RSR Respiratory: clear Abdomen: soft, flat, non-tender, present bowel sounds Extremities: no cyanosis Plan Problems: (1) Pleural effusion Assessment & Plan: left chest tube functional. CXR reviewed Chest tube placed to water seal today AM CXR DNAR / Comfort care thank you Best Cody Aug 17, 2018 11:44
[2018-08-17 12:00] VITALS: BP 125/66
[2018-08-17] MEDS ORDERED: Sterile Water Irrig 1000ml IRRIG ONE (13:01)
[2018-08-17] MEDS ORDERED: Tubing IV Secondary IV ONE ×2 (13:01→13:16)
[2018-08-17] MEDS ORDERED: 1/2 NS 1000ml IV ONE (13:16)
[2018-08-17] MEDS ORDERED: NS 275ml ONE (13:16)
--- NOTE | 2018-08-17 13:49 | Pulmonology Progress Note ---
Assessment/Plan Assessment/Plan 1. Septic shock. 2. Dehydration with azotemia. 3. Left-sided pneumonia and empyema. 4. Respiratory failure, requiring intubation. 5. Parkinson disease with dementia. 6. History of hemorrhagic stroke. 7. Possible history of DVT. 8. Diastolic dysfunction and LVH. 9. History of adrenocortical insufficiency. 10. Anemia extubated, stridor better w morphine family decided on comfort care to medical floor DNR no more labs or xrays Subjective ROS Limited/Unobtainable: Yes Allergies: Coded Allergies: No Known Allergies (Verified , 03/19/15) Subjective obtunded CT with output on Tf no bleeding no family at the bedside Objective Last 24 Hour Vital Signs Date Time Temp Pulse Resp B/P (MAP) Pulse Ox O2 Delivery O2 Flow Rate FiO2 08/17/18 12:00 98.0 96 20 125/66 (85) 100 98.0 08/17/18 09:18 97 135/75 08/17/18 09:00 Nasal Cannula 2.0 08/17/18 08:02 Nasal Cannula 2.0 28 08/17/18 08:02 97 22 Nasal Cannula 2.0 28 08/17/18 08:02 97 Nasal Cannula 2.0 28 08/17/18 08:00 98.4 103 20 135/75 (95) 99 98.4 08/17/18 04:00 97.7 105 20 140/73 (95) 97 97.7 08/17/18 00:00 98.2 104 20 140/73 (95) 97 98.2 08/16/18 21:40 102 144/74 08/16/18 21:00 Nasal Cannula 2.0 Nasal Cannula 2.0 Nasal Cannula 2.0 Nasal Cannula 2.0 08/16/18 20:00 97.9 102 20 144/74 (97) 96 97.9 08/16/18 19:46 98 24 Nasal Cannula 2.0 28 08/16/18 19:46 97 Nasal Cannula 2.0 28 08/16/18 19:46 Nasal Cannula 2.0 28 08/16/18 17:00 97 23 127/57 (80) 99 08/16/18 16:00 6.0 28 08/16/18 16:00 97.8 85 28 132/59 (83) 98 97.8 08/16/18 16:00 65 08/16/18 16:00 T-piece 8.0 Venturi Mask Venturi Mask Venturi Mask 08/16/18 15:00 86 40 134/65 (88) 100 08/16/18 14:39 97.8 08/16/18 14:09 98.2 08/16/18 14:00 89 34 118/55 (76) 100 Intake and Output 08/16/18 08/17/18 19:00 07:00 Intake Total 440.0 ml 587.5 ml Output Total 595 ml 878 ml Balance -155.0 ml -290.5 ml Free Water 150 ml IV Total 165.0 ml 137.5 ml Tube Feeding 275 ml 300 ml Output Urine Total 475 ml 750 ml Chest Tube Drainage Total 120 ml 128 ml # Bowel Movements 4 2 General Appearance: cachetic Respiratory/Chest: rhonchi Cardiovascular: normal rate Abdomen: soft, non tender, no organomegaly Neurologic/Psychiatric: disoriented, unresponsiveness Current Medications Medications (Trade) Dose Ordered Sig/Eloy Route PRN Reason Start Time Stop Time Status Last Admin Dose Admin Acetaminophen (Tylenol) 650 mg Q4H PRN ORAL Mild Pain (Pain Scale 1-3) 08/16/18 17:30 09/08/18 17:29 Albuterol/ Ipratropium (Albuterol/ Ipratropium) 3 ml Q4H PRN HHN Shortness of Breath 08/16/18 17:30 08/20/18 17:29 Aspirin (ASA) 81 mg DAILY GT 08/17/18 09:00 09/08/18 08:59 08/17/18 09:18 Atorvastatin Calcium (Lipitor) 10 mg BEDTIME ORAL 08/16/18 21:00 09/08/18 20:59 08/16/18 21:40 Carbidopa/Levodopa (Sinemet 25/100) 1 tab BID GT 08/16/18 18:00 09/06/18 17:59 08/17/18 09:18 Chlorhexidine Gluconate (Bee-Hex 2%) 1 applic DAILY@1999 TOPIC 08/16/18 20:00 09/08/18 19:59 08/16/18 21:39 Dextrose (Dextrose 50%) 25 ml Q1H PRN IV Hypoglycemia 08/16/18 17:30 09/15/18 17:29 Dextrose (Dextrose 50%) 50 ml Q1H PRN IV Hypoglycemia 08/16/18 17:30 09/15/18 17:29 Donepezil HCl (Aricept) 10 mg DAILY ORAL 08/17/18 09:00 09/08/18 08:59 08/17/18 09:18 Famotidine (Pepcid) 20 mg BID ORAL 08/16/18 18:00 09/15/18 17:59 08/17/18 09:18 Finasteride (Proscar) 5 mg DAILY ORAL 08/17/18 09:00 09/08/18 08:59 08/17/18 09:17 Fludrocortisone Acetate (Florinef) 0.1 mg DAILY ORAL 08/17/18 09:00 09/08/18 08:59 08/17/18 09:18 Insulin Aspart (NovoLOG) EVERY 6 HOURS SUBQ 08/16/18 18:00 09/06/18 11:29 08/17/18 12:14 Lorazepam (Ativan 2mg/ml 1ml) 0.5 mg Q2H PRN IV For Seizures 08/16/18 17:30 08/19/18 17:29 Metoprolol Tartrate (Lopressor) 50 mg Q12HR GT 08/16/18 21:00 09/09/18 20:59 08/17/18 09:18 Morphine Sulfate (Morphine Sulfate) 2 mg Q3H PRN IVP For Pain 08/16/18 17:30 08/22/18 20:29 Multivitamins (Multivitamins) 1 tab DAILY ORAL 08/17/18 09:00 09/08/18 08:59 08/17/18 09:18 Piperacillin Sod/ Tazobactam Sod 3.375 gm/Dextrose 110 ml @ 27.5 mls/hr EVERY 8 HOURS IVPB 08/16/18 22:00 08/20/18 13:59 08/17/18 05:37 Quetiapine Fumarate (SEROquel) 25 mg DAILY ORAL 08/17/18 09:00 09/08/18 08:59 08/17/18 09:17 Rivaroxaban (Xarelto) 20 mg DAILY ORAL 08/17/18 09:00 09/09/18 08:59 08/17/18 09:17 Tamsulosin HCl (Flomax) 0.4 mg BEDTIME ORAL 9/21/18 21:00 09/08/18 20:59 08/16/18 21:40 Chantell Tamayo DO Aug 17, 2018 13:49
[2018-08-17 16:00] VITALS: BP 126/65
[2018-08-17 20:00] VITALS: BP 143/76
[2018-08-17] MEDS: Tamsulosin 0.4mg cap ORAL SCH (22:40)
[2018-08-17] MEDS: Dyna-Hex 2% Top Sol 2oz TOPIC SCH (22:43)
[2018-08-18] VITALS: BP 130/63
[2018-08-18] MEDS: NovoLOG Insulin Flexpen SUBQ SCH ×4 (00:07→17:50)
--- NOTE | 2018-08-18 02:30 | Progress Note ---
DATE: 08/16/2018 CARDIOLOGY PROGRESS NOTE Late entry for 08/16/2018. SUBJECTIVE: The patient is extubated. He has had stridor. He is on morphine. Comfort care is in place. OBJECTIVE: VITAL SIGNS: Blood pressure 118/55, pulse 89, and respirations 34. Afebrile. LUNGS: Coarse breath sounds. Scattered rhonchi. Occasional wheezing. HEART: Regular rhythm and rate. Normal S1, S2. ABDOMEN: Soft. EXTREMITIES: No edema. LABORATORY DATA: No new laboratories. IMPRESSION: 1. History of prior deep venous thrombosis. 2. Sepsis with shock, recovered. 3. Pneumonia with empyema. 4. Acute on chronic respiratory insufficiency. PLAN: 1. Comfort care. 2. No more laboratories. 3. Inhaled bronchodilators. 4. Antimicrobials. 5. Steroids. 6. Full anticoagulation. 7. Observe for signs of bleeding. Jeremy Fried M.D. DR: INÉS JOB#: [id number] CC:
--- NOTE | 2018-08-18 02:45 | Progress Note ---
DATE: 08/17/2018 SUBJECTIVE: The patient remains on comfort care, extubated, less respiratory distress. OBJECTIVE: VITAL SIGNS: Vitals are stable. GENERAL: Chest tube in place. Remains on full anticoagulation, which I will discontinue in favor of subcutaneous heparin since the patient does not have any residual acute DVT, but rather only superficial DVT noted. Jeremy Fried M.D. DR: FABIOLA JOB#: [id number] CC:
[2018-08-18 04:00] VITALS: BP 127/61
[2018-08-18] MEDS: Piperacillin/Tazobactam 3.375 GM in D5W 110 ML IVPB SCH ×3 (05:44→21:36)
[2018-08-18 08:00] VITALS: BP 124/69
[2018-08-18] MEDS: Aspirin Baby 81mg GT SCH (08:22)
[2018-08-18] MEDS: Levodopa/Carbidopa 25/100 tab GT SCH ×2 (08:22→17:50)
[2018-08-18] MEDS: Donepezil 10mg tab ORAL SCH (08:22)
[2018-08-18] MEDS: Xarelto 10mg tab ORAL SCH (08:22)
[2018-08-18] MEDS: Metoprolol Tartrate 50mg tab GT SCH ×2 (08:22→20:29)
--- NOTE | 2018-08-18 09:33 | Diagnostic Imaging Report ---
INDICATION: Shortness of breath COMPARISON: Chest x-ray dated 08/17/18 FINDINGS: Single frontal view demonstrates enlarged heart size. Stable left peripherally inserted central venous catheter tip in the midsuperior vena cava. Atherosclerotic vascular disease. Left chest tube with stable opacity in the left lower lung zone. Improved aeration of the right lower lung zone. No pleural effusions. The visualized osseous structures are within normal limits. IMPRESSION: Enlarged heart size. Left chest tube with stable opacity in the left lower lung zone. Improved aeration of the right lower lung zone.
--- NOTE | 2018-08-18 11:24 | Pulmonology Progress Note ---
Assessment/Plan Assessment/Plan 1. Septic shock. 2. Dehydration with azotemia. 3. Left-sided pneumonia and empyema. 4. Respiratory failure, requiring intubation. 5. Parkinson disease with dementia. 6. History of hemorrhagic stroke. 7. Possible history of DVT. 8. Diastolic dysfunction and LVH. 9. History of adrenocortical insufficiency. 10. Anemia extubated, stridor better w morphine family decided on comfort care to medical floor DNR no more labs or xrays Subjective ROS Limited/Unobtainable: Yes Allergies: Coded Allergies: No Known Allergies (Verified , 03/19/15) Subjective no events noted obtunded CT with output on Tf no bleeding no family at the bedside Objective Last 24 Hour Vital Signs Date Time Temp Pulse Resp B/P (MAP) Pulse Ox O2 Delivery O2 Flow Rate FiO2 08/18/18 09:00 Nasal Cannula 2.0 08/18/18 08:22 90 124/69 08/18/18 08:11 Nasal Cannula 2.0 28 08/18/18 08:11 98 Nasal Cannula 2.0 28 08/18/18 08:11 98 24 Nasal Cannula 2.0 28 08/18/18 08:00 97.5 90 20 124/69 (87) 99 97.5 08/18/18 04:00 97.5 89 21 127/61 (83) 99 97.5 08/18/18 00:00 98.1 81 22 130/63 (85) 100 98.1 08/17/18 22:42 87 143/76 08/17/18 21:00 Nasal Cannula 2.0 08/17/18 20:00 97.9 87 23 143/76 (98) 99 97.9 08/17/18 19:29 97 Nasal Cannula 2.0 28 08/17/18 19:29 110 24 Nasal Cannula 2.0 28 08/17/18 19:29 Nasal Cannula 2.0 28 08/17/18 16:00 98.3 93 20 126/65 (85) 100 98.3 08/17/18 12:00 98.0 96 20 125/66 (85) 100 98.0 Intake and Output 08/17/18 08/18/18 19:00 07:00 Intake Total 375 ml 110.0 ml Output Total 912 ml 729 ml Balance -537 ml -619.0 ml Free Water 100 ml IV Total 110.0 ml Tube Feeding 275 ml Output Urine Total 800 ml 550 ml Chest Tube Drainage Total 112 ml 179 ml # Bowel Movements 4 1 General Appearance: cachetic HEENT: atraumatic, anicteric Respiratory/Chest: rhonchi Cardiovascular: normal rate Abdomen: soft, non tender Neurologic/Psychiatric: unresponsiveness Current Medications Medications (Trade) Dose Ordered Sig/Eloy Route PRN Reason Start Time Stop Time Status Last Admin Dose Admin Acetaminophen (Tylenol) 650 mg Q4H PRN ORAL Mild Pain (Pain Scale 1-3) 08/16/18 17:30 09/08/18 17:29 Albuterol/ Ipratropium (Albuterol/ Ipratropium) 3 ml Q4H PRN HHN Shortness of Breath 08/16/18 17:30 08/20/18 17:29 Aspirin (ASA) 81 mg DAILY GT 08/17/18 09:00 09/08/18 08:59 08/18/18 08:22 Atorvastatin Calcium (Lipitor) 10 mg BEDTIME ORAL 08/16/18 21:00 09/08/18 20:59 08/17/18 22:41 Carbidopa/Levodopa (Sinemet 25/100) 1 tab BID GT 08/16/18 18:00 09/06/18 17:59 08/18/18 08:22 Chlorhexidine Gluconate (Bee-Hex 2%) 1 applic DAILY@1999 TOPIC 08/16/18 20:00 09/08/18 19:59 08/17/18 22:43 Dextrose (Dextrose 50%) 25 ml Q1H PRN IV Hypoglycemia 08/16/18 17:30 09/15/18 17:29 Dextrose (Dextrose 50%) 50 ml Q1H PRN IV Hypoglycemia 08/16/18 17:30 09/15/18 17:29 Donepezil HCl (Aricept) 10 mg DAILY ORAL 08/17/18 09:00 09/08/18 08:59 08/18/18 08:22 Famotidine (Pepcid) 20 mg BID ORAL 08/16/18 18:00 09/15/18 17:59 08/18/18 08:23 Finasteride (Proscar) 5 mg DAILY ORAL 08/17/18 09:00 09/08/18 08:59 08/18/18 08:22 Fludrocortisone Acetate (Florinef) 0.1 mg DAILY ORAL 08/17/18 09:00 09/08/18 08:59 08/18/18 08:22 Insulin Aspart (NovoLOG) EVERY 6 HOURS SUBQ 08/16/18 18:00 09/06/18 11:29 08/18/18 05:58 Lorazepam (Ativan 2mg/ml 1ml) 0.5 mg Q2H PRN IV For Seizures 08/16/18 17:30 08/19/18 17:29 Metoprolol Tartrate (Lopressor) 50 mg Q12HR GT 08/16/18 21:00 09/09/18 20:59 08/18/18 08:22 Morphine Sulfate (Morphine Sulfate) 2 mg Q3H PRN IVP For Pain 08/16/18 17:30 08/22/18 20:29 Multivitamins (Multivitamins) 1 tab DAILY ORAL 08/17/18 09:00 09/08/18 08:59 08/18/18 08:22 Piperacillin Sod/ Tazobactam Sod 3.375 gm/Dextrose 110 ml @ 27.5 mls/hr EVERY 8 HOURS IVPB 08/16/18 22:00 08/20/18 13:59 08/18/18 05:44 Quetiapine Fumarate (SEROquel) 25 mg DAILY ORAL 08/17/18 09:00 09/08/18 08:59 08/18/18 08:22 Rivaroxaban (Xarelto) 20 mg DAILY ORAL 08/17/18 09:00 09/09/18 08:59 08/18/18 08:22 Tamsulosin HCl (Flomax) 0.4 mg BEDTIME ORAL 08/16/18 21:00 09/08/18 20:59 08/17/18 22:40 Chantell Tamayo DO Aug 18, 2018 11:24
--- NOTE | 2018-08-18 11:55 | General Surgery Progress Note ---
General Surgery-Progress Note Subjective Procedure Performed left chest tube insertion Additional Comments no acute events. 24h output from chest tube on water seal >300. Objective Last 24 Hour Vital Signs Date Time Temp Pulse Resp B/P (MAP) Pulse Ox O2 Delivery O2 Flow Rate FiO2 08/18/18 09:00 Nasal Cannula 2.0 08/18/18 08:22 90 124/69 08/18/18 08:11 Nasal Cannula 2.0 28 08/18/18 08:11 98 Nasal Cannula 2.0 28 08/18/18 08:11 98 24 Nasal Cannula 2.0 28 08/18/18 08:00 97.5 90 20 124/69 (87) 99 97.5 08/18/18 04:00 97.5 89 21 127/61 (83) 99 97.5 08/18/18 00:00 98.1 81 22 130/63 (85) 100 98.1 08/17/18 22:42 87 143/76 08/17/18 21:00 Nasal Cannula 2.0 08/17/18 20:00 97.9 87 23 143/76 (98) 99 97.9 08/17/18 19:29 97 Nasal Cannula 2.0 28 08/17/18 19:29 110 24 Nasal Cannula 2.0 28 08/17/18 19:29 Nasal Cannula 2.0 28 08/17/18 16:00 98.3 93 20 126/65 (85) 100 98.3 08/17/18 12:00 98.0 96 20 125/66 (85) 100 98.0 I&O Intake and Output 08/17/18 08/18/18 19:00 07:00 Intake Total 375 ml 110.0 ml Output Total 912 ml 729 ml Balance -537 ml -619.0 ml Free Water 100 ml IV Total 110.0 ml Tube Feeding 275 ml Output Urine Total 800 ml 550 ml Chest Tube Drainage Total 112 ml 179 ml # Bowel Movements 4 1 Dressing: saturated Wound: clean Drains: other Cardiovascular: RSR Respiratory: clear Abdomen: soft, flat, present bowel sounds Extremities: other Plan Problems: (1) Pleural effusion Assessment & Plan: left chest tube functional. CXR stable Chest tube to water seal unfortunately output too high to remove chest tube yet. will monitor DNAR / Comfort care thank you Best Cody Aug 18, 2018 11:55
[2018-08-18 12:00] VITALS: BP 137/69
[2018-08-18 16:00] VITALS: BP 145/69
[2018-08-18 20:00] VITALS: BP 120/85
[2018-08-18] MEDS: Dyna-Hex 2% Top Sol 2oz TOPIC SCH (20:24)
[2018-08-18] MEDS: Tamsulosin 0.4mg cap ORAL SCH (20:24)
[2018-08-19] VITALS: BP 139/71
--- NOTE | 2018-08-19 01:30 | Progress Note ---
DATE: 08/18/2018 CARDIOLOGY PROGRESS NOTE SUBJECTIVE: The patient remains with a left-sided chest tube, still with output. OBJECTIVE: VITAL SIGNS: Blood pressure 124/69, pulse 90, respiratory rate 24, and afebrile. LUNGS: Diminished breath sounds. No wheezing. Some rhonchi. HEART: Regular rhythm and rate. Normal S1 and S2. ABDOMEN: Soft. EXTREMITIES: No edema. IMPRESSION: 1. Parkinson disease. 2. Pneumonia with empyema, status post drainage with chest tube. 3. Sepsis. 4. Recovered shock. 5. History of subacute deep vein thrombosis. PLAN: 1. Conservative management. 2. Off anticoagulation other than subcutaneous heparin. 3. Chest tube management. 4. Pain control. 5. Respiratory hygiene. 6. Recommend off anticoagulation, G-tube planned for conservative management. Would continue only subcutaneous heparin for DVT prophylaxis. Jeremy Fried M.D. DR: RIANA JOB#: [id number] CC:
[2018-08-19 04:00] VITALS: BP 135/66
[2018-08-19] MEDS: Piperacillin/Tazobactam 3.375 GM in D5W 110 ML IVPB SCH ×3 (05:51→23:02)
[2018-08-19] MEDS: NovoLOG Insulin Flexpen SUBQ SCH ×5 (06:00→23:25)
[2018-08-19 08:00] VITALS: BP 140/66
[2018-08-19] MEDS: Aspirin Baby 81mg GT SCH (09:02)
[2018-08-19] MEDS: Donepezil 10mg tab ORAL SCH (09:02)
[2018-08-19] MEDS: Metoprolol Tartrate 50mg tab GT SCH ×2 (09:03→23:01)
[2018-08-19] MEDS: Xarelto 10mg tab ORAL SCH (09:03)
[2018-08-19] MEDS: Levodopa/Carbidopa 25/100 tab GT SCH ×2 (09:03→17:23)
[2018-08-19 12:00] VITALS: BP 114/66
--- NOTE | 2018-08-19 12:16 | Pulmonology Progress Note ---
Assessment/Plan Assessment/Plan 1. Septic shock, resolved 2. Dehydration with azotemia, resolved 3. Left-sided pneumonia and empyema. 4. Respiratory failure, requiring intubation. 5. Parkinson disease with dementia. 6. History of hemorrhagic stroke. 7. Possible history of DVT. 8. Diastolic dysfunction and LVH. 9. History of adrenocortical insufficiency. 10. Anemia No stridor still high chest tube output c/s neg CXR with extensive consolidation L lung DNR family considering home with hospice Subjective ROS Limited/Unobtainable: Yes Allergies: Coded Allergies: No Known Allergies (Verified , 03/19/15) Objective Last 24 Hour Vital Signs Date Time Temp Pulse Resp B/P (MAP) Pulse Ox O2 Delivery O2 Flow Rate FiO2 08/19/18 12:00 97.6 71 20 114/66 (82) 99 97.6 08/19/18 09:03 82 140/66 08/19/18 09:00 Nasal Cannula 2.0 08/19/18 08:08 99 2.0 28 08/19/18 08:08 82 20 Nasal Cannula 2.0 28 08/19/18 08:08 Nasal Cannula 2.0 28 08/19/18 08:00 97.7 85 20 140/66 (90) 99 97.7 08/19/18 04:00 97.5 80 20 135/66 (89) 99 97.5 08/19/18 00:00 97.9 85 20 139/71 (93) 100 97.9 08/18/18 21:00 Nasal Cannula 2.0 08/18/18 20:29 94 120/85 08/18/18 20:00 98.8 94 19 120/85 (97) 100 98.8 08/18/18 19:48 Nasal Cannula 2.0 28 08/18/18 19:48 97 Nasal Cannula 2.0 28 08/18/18 19:47 97 22 Nasal Cannula 2.0 28 08/18/18 16:00 98.2 90 20 145/69 (94) 99 98.2 Intake and Output 08/18/18 08/19/18 19:00 07:00 Intake Total 460.0 ml Output Total 695 ml 720 ml Balance -235.0 ml -720 ml Free Water 100 ml IV Total 110.0 ml Tube Feeding 250 ml Output Urine Total 600 ml 550 ml Chest Tube Drainage Total 95 ml 170 ml # Bowel Movements 2 General Appearance: no acute distress HEENT: atraumatic Respiratory/Chest: decreased breath sounds Cardiovascular: normal rate Current Medications Medications (Trade) Dose Ordered Sig/Eloy Route PRN Reason Start Time Stop Time Status Last Admin Dose Admin Acetaminophen (Tylenol) 650 mg Q4H PRN ORAL Mild Pain (Pain Scale 1-3) 08/16/18 17:30 09/08/18 17:29 Albuterol/ Ipratropium (Albuterol/ Ipratropium) 3 ml Q4H PRN HHN Shortness of Breath 08/16/18 17:30 08/20/18 17:29 Aspirin (ASA) 81 mg DAILY GT 08/17/18 09:00 09/08/18 08:59 08/19/18 09:02 Atorvastatin Calcium (Lipitor) 10 mg BEDTIME ORAL 08/16/18 21:00 09/08/18 20:59 08/18/18 20:26 Carbidopa/Levodopa (Sinemet 25/100) 1 tab BID GT 08/16/18 18:00 09/06/18 17:59 08/19/18 09:03 Chlorhexidine Gluconate (Bee-Hex 2%) 1 applic DAILY@2000 TOPIC 08/16/18 20:00 09/08/18 19:59 08/18/18 20:24 Dextrose (Dextrose 50%) 25 ml Q1H PRN IV Hypoglycemia 08/16/18 17:30 09/15/18 17:29 Dextrose (Dextrose 50%) 50 ml Q1H PRN IV Hypoglycemia 08/16/18 17:30 09/15/18 17:29 Donepezil HCl (Aricept) 10 mg DAILY ORAL 08/17/18 09:00 09/08/18 08:59 08/19/18 09:02 Famotidine (Pepcid) 20 mg BID ORAL 08/16/18 18:00 09/15/18 17:59 08/19/18 09:02 Finasteride (Proscar) 5 mg DAILY ORAL 08/17/18 09:00 09/08/18 08:59 08/19/18 09:02 Fludrocortisone Acetate (Florinef) 0.1 mg DAILY ORAL 08/17/18 09:00 09/08/18 08:59 08/19/18 09:03 Insulin Aspart (NovoLOG) EVERY 6 HOURS SUBQ 08/16/18 18:00 09/06/18 11:29 08/18/18 17:50 Lorazepam (Ativan 2mg/ml 1ml) 0.5 mg Q2H PRN IV For Seizures 08/16/18 17:30 08/19/18 17:29 Metoprolol Tartrate (Lopressor) 50 mg Q12HR GT 08/16/18 21:00 09/09/18 20:59 08/19/18 09:03 Morphine Sulfate (Morphine Sulfate) 2 mg Q3H PRN IVP For Pain 08/16/18 17:30 08/22/18 20:29 Multivitamins (Multivitamins) 1 tab DAILY ORAL 08/17/18 09:00 09/08/18 08:59 08/19/18 09:02 Piperacillin Sod/ Tazobactam Sod 3.375 gm/Dextrose 110 ml @ 27.5 mls/hr EVERY 8 HOURS IVPB 08/16/18 22:00 08/20/18 13:59 08/19/18 05:51 Quetiapine Fumarate (SEROquel) 25 mg DAILY ORAL 08/17/18 09:00 09/08/18 08:59 08/19/18 09:03 Rivaroxaban (Xarelto) 20 mg DAILY ORAL 08/17/18 09:00 09/09/18 08:59 08/19/18 09:03 Tamsulosin HCl (Flomax) 0.4 mg BEDTIME ORAL 08/16/18 21:00 09/08/18 20:59 08/18/18 20:24 Harjeet Baptiste MD Aug 19, 2018 12:15
--- NOTE | 2018-08-19 13:00 | General Surgery Progress Note ---
General Surgery-Progress Note Subjective Procedure Performed left chest tube insertion Additional Comments chest tube output decreasing at 240cc last 24hrs. Objective Last 24 Hour Vital Signs Date Time Temp Pulse Resp B/P (MAP) Pulse Ox O2 Delivery O2 Flow Rate FiO2 08/19/18 12:00 97.6 71 20 114/66 (82) 99 97.6 08/19/18 09:03 82 140/66 08/19/18 09:00 Nasal Cannula 2.0 08/19/18 08:08 99 2.0 28 08/19/18 08:08 82 20 Nasal Cannula 2.0 28 08/19/18 08:08 Nasal Cannula 2.0 28 08/19/18 08:00 97.7 85 20 140/66 (90) 99 97.7 08/19/18 04:00 97.5 80 20 135/66 (89) 99 97.5 08/19/18 00:00 97.9 85 20 139/71 (93) 100 97.9 08/18/18 21:00 Nasal Cannula 2.0 08/18/18 20:29 94 120/85 08/18/18 20:00 98.8 94 19 120/85 (97) 100 98.8 08/18/18 19:48 Nasal Cannula 2.0 28 08/18/18 19:48 97 Nasal Cannula 2.0 28 08/18/18 19:47 97 22 Nasal Cannula 2.0 28 08/18/18 16:00 98.2 90 20 145/69 (94) 99 98.2 I&O Intake and Output 08/18/18 08/19/18 19:00 07:00 Intake Total 460.0 ml Output Total 695 ml 720 ml Balance -235.0 ml -720 ml Free Water 100 ml IV Total 110.0 ml Tube Feeding 250 ml Output Urine Total 600 ml 550 ml Chest Tube Drainage Total 95 ml 170 ml # Bowel Movements 2 Wound: clean Drains: other Cardiovascular: RSR Respiratory: decreased breath sounds Abdomen: soft, flat, present bowel sounds Extremities: other Plan Problems: (1) Pleural effusion Assessment & Plan: left chest tube functional. CXR stable Chest tube to water seal unfortunately output too high to remove chest tube yet. will monitor DNAR / Comfort care thank you Best Cody Aug 19, 2018 13:00
[2018-08-19 16:00] VITALS: BP 138/66
[2018-08-19 20:00] VITALS: BP 123/52
--- NOTE | 2018-08-19 21:45 | Progress Note ---
DATE: 08/19/2018 CARDIOLOGY PROGRESS NOTE SUBJECTIVE: The patient without respiratory distress. OBJECTIVE: VITAL SIGNS: Stable, blood pressure 114/66, pulse 71, respiratory rate 20 and no fevers. Chest tube in place with high output. LUNGS: Bilateral breath sounds with rhonchi. CARDIAC: Regular rhythm and rate. Normal S1 and S2 with a fourth heart sound. ABDOMEN: Soft. G-tube intact. EXTREMITIES: No edema. LABORATORY AND DIAGNOSTIC DATA: No new laboratories. IMPRESSION: 1. Pneumonia with empyema, now with chest tube drainage. 2. Sepsis with shock, recovered. 3. Hypertensive heart disease. 4. Parkinson disease with dementia. 5. History of DVT, now with subacute thrombus. PLAN: 1. Chest tube management. 2. Antimicrobials. 3. Respiratory hygiene. 4. DNR. 5. Conservative management. 6. Consider discontinuation of rivaroxaban in favor of subcutaneous heparin only, if hospice plan of care is pursued. Jeermy Fried M.D. DR: LEONARDO JOB#: [id number] CC:
[2018-08-19] MEDS: Dyna-Hex 2% Top Sol 2oz TOPIC SCH (23:00)
[2018-08-19] MEDS: Tamsulosin 0.4mg cap ORAL SCH (23:00)
[2018-08-20] VITALS: BP 144/87
[2018-08-20 04:00] VITALS: BP 138/81
[2018-08-20] MEDS: Piperacillin/Tazobactam 3.375 GM in D5W 110 ML IVPB SCH ×2 (05:27→20:57)
[2018-08-20] MEDS: NovoLOG Insulin Flexpen SUBQ SCH ×4 (05:28→23:53)
[2018-08-20 08:00] VITALS: BP 152/81
[2018-08-20] MEDS: Levodopa/Carbidopa 25/100 tab GT SCH ×2 (08:58→17:35)
[2018-08-20] MEDS: Aspirin Baby 81mg GT SCH (08:59)
[2018-08-20] MEDS: Xarelto 10mg tab ORAL SCH (08:59)
[2018-08-20] MEDS: Donepezil 10mg tab ORAL SCH (08:59)
[2018-08-20] MEDS: Metoprolol Tartrate 50mg tab GT SCH ×2 (08:59→20:58)
--- NOTE | 2018-08-20 09:04 | General Surgery Progress Note ---
General Surgery-Progress Note Subjective Procedure Performed left chest tube insertion Additional Comments stable. drain output 260cc over 24hrs serosang Objective Last 24 Hour Vital Signs Date Time Temp Pulse Resp B/P (MAP) Pulse Ox O2 Delivery O2 Flow Rate FiO2 08/20/18 08:59 80 152/81 08/20/18 08:00 97.7 80 17 152/81 (104) 100 97.7 08/20/18 07:28 88 18 Nasal Cannula 2.0 28 08/20/18 07:28 Nasal Cannula 2.0 28 08/20/18 07:27 98 Nasal Cannula 2.0 28 08/20/18 04:00 98.1 84 17 138/81 (100) 100 98.1 08/20/18 00:00 97.5 89 20 144/87 (106) 99 97.5 08/19/18 23:01 89 144/87 08/19/18 21:00 Nasal Cannula 2.0 08/19/18 20:00 97.3 84 18 123/52 (75) 100 97.3 08/19/18 16:00 97.7 71 20 138/66 (90) 99 97.7 08/19/18 12:00 97.6 71 20 114/66 (82) 99 97.6 I&O Intake and Output 08/19/18 08/20/18 19:00 07:00 Intake Total 300 ml 475 ml Output Total 600 ml 150 ml Balance -300 ml 325 ml Free Water 200 ml Tube Feeding 300 ml 275 ml Output Urine Total 600 ml Chest Tube Drainage Total 150 ml # Bowel Movements 2 Dressing: saturated Wound: clean Drains: other Cardiovascular: RSR Respiratory: decreased breath sounds Abdomen: soft, flat, present bowel sounds Extremities: other Plan Problems: (1) Pleural effusion Assessment & Plan: left chest tube functional. CXR stable Chest tube to water seal unfortunately output too high to remove chest tube yet. will monitor can possibly d/c with chest tube if home hospice. otherwise will monitor and d/ c tube as output decreases DNAR / Comfort care thank you Best Cody Aug 20, 2018 09:04
[2018-08-20 12:00] VITALS: BP 130/81
--- NOTE | 2018-08-20 14:30 | Pulmonology Progress Note ---
Assessment/Plan Assessment/Plan 1. Septic shock, resolved 2. Dehydration with azotemia, resolved 3. Left-sided pneumonia and empyema. 4. Respiratory failure, requiring intubation. 5. Parkinson disease with dementia. 6. History of hemorrhagic stroke. 7. Possible history of DVT. 8. Diastolic dysfunction and LVH. 9. History of adrenocortical insufficiency. 10. Anemia still high chest tube output cannot remove chest tube yet DNR family agreed to home with hospice when ready for dc Subjective ROS Limited/Unobtainable: Yes Allergies: Coded Allergies: No Known Allergies (Verified , 03/19/15) Objective Last 24 Hour Vital Signs Date Time Temp Pulse Resp B/P (MAP) Pulse Ox O2 Delivery O2 Flow Rate FiO2 08/20/18 12:00 97.7 63 17 130/81 (97) 100 97.7 08/20/18 09:00 Nasal Cannula 2.0 08/20/18 08:59 80 152/81 08/20/18 08:00 97.7 80 17 152/81 (104) 100 97.7 08/20/18 07:28 88 18 Nasal Cannula 2.0 28 08/20/18 07:28 Nasal Cannula 2.0 28 08/20/18 07:27 98 Nasal Cannula 2.0 28 08/20/18 04:00 98.1 84 17 138/81 (100) 100 98.1 08/20/18 00:00 97.5 89 20 144/87 (106) 99 97.5 08/19/18 23:01 89 144/87 08/19/18 21:00 Nasal Cannula 2.0 08/19/18 20:00 97.3 84 18 123/52 (75) 100 97.3 08/19/18 16:00 97.7 71 20 138/66 (90) 99 97.7 Intake and Output 08/19/18 08/20/18 19:00 07:00 Intake Total 300 ml 475 ml Output Total 600 ml 150 ml Balance -300 ml 325 ml Free Water 200 ml Tube Feeding 300 ml 275 ml Output Urine Total 600 ml Chest Tube Drainage Total 150 ml # Bowel Movements 2 Objective R chest tube on water seal HEENT: atraumatic Respiratory/Chest: decreased breath sounds Cardiovascular: normal rate Abdomen: soft, non tender Current Medications Medications (Trade) Dose Ordered Sig/Eloy Route PRN Reason Start Time Stop Time Status Last Admin Dose Admin Acetaminophen (Tylenol) 650 mg Q4H PRN ORAL Mild Pain (Pain Scale 1-3) 08/16/18 17:30 09/08/18 17:29 Albuterol/ Ipratropium (Albuterol/ Ipratropium) 3 ml Q4H PRN HHN Shortness of Breath 08/16/18 17:30 08/20/18 17:29 Aspirin (ASA) 81 mg DAILY GT 08/17/18 09:00 09/08/18 08:59 08/20/18 08:59 Atorvastatin Calcium (Lipitor) 10 mg BEDTIME ORAL 08/16/18 21:00 09/08/18 20:59 08/19/18 23:00 Carbidopa/Levodopa (Sinemet 25/100) 1 tab BID GT 08/16/18 18:00 09/06/18 17:59 08/20/18 08:58 Chlorhexidine Gluconate (Bee-Hex 2%) 1 applic DAILY@1999 TOPIC 08/16/18 20:00 09/08/18 19:59 08/19/18 23:00 Dextrose (Dextrose 50%) 25 ml Q1H PRN IV Hypoglycemia 08/16/18 17:30 09/15/18 17:29 Dextrose (Dextrose 50%) 50 ml Q1H PRN IV Hypoglycemia 08/16/18 17:30 09/15/18 17:29 Donepezil HCl (Aricept) 10 mg DAILY ORAL 08/17/18 09:00 09/08/18 08:59 08/20/18 08:59 Famotidine (Pepcid) 20 mg BID ORAL 08/16/18 18:00 09/15/18 17:59 08/20/18 08:59 Finasteride (Proscar) 5 mg DAILY ORAL 08/17/18 09:00 09/08/18 08:59 08/20/18 08:59 Fludrocortisone Acetate (Florinef) 0.1 mg DAILY ORAL 08/17/18 09:00 09/08/18 08:59 08/20/18 08:59 Insulin Aspart (NovoLOG) EVERY 6 HOURS SUBQ 08/16/18 18:00 09/06/18 11:29 08/20/18 12:16 Metoprolol Tartrate (Lopressor) 50 mg Q12HR GT 08/16/18 21:00 09/09/18 20:59 08/20/18 08:59 Morphine Sulfate (Morphine Sulfate) 2 mg Q3H PRN IVP For Pain 08/16/18 17:30 08/22/18 20:29 Multivitamins (Multivitamins) 1 tab DAILY ORAL 08/17/18 09:00 09/08/18 08:59 08/20/18 08:59 Quetiapine Fumarate (SEROquel) 25 mg DAILY ORAL 08/17/18 09:00 09/08/18 08:59 08/20/18 08:59 Rivaroxaban (Xarelto) 20 mg DAILY ORAL 08/17/18 09:00 09/09/18 08:59 08/20/18 08:59 Tamsulosin HCl (Flomax) 0.4 mg BEDTIME ORAL 08/16/18 21:00 09/08/18 20:59 08/19/18 23:00 Harjeet Baptiste MD Aug 20, 2018 14:30
[2018-08-20 16:00] VITALS: BP 142/97
[2018-08-20 20:00] VITALS: BP 145/74
[2018-08-20] MEDS: Dyna-Hex 2% Top Sol 2oz TOPIC SCH (20:00)
[2018-08-20] MEDS: Tamsulosin 0.4mg cap ORAL SCH (20:58)
[2018-08-21] VITALS: BP 150/76
--- NOTE | 2018-08-21 03:00 | Progress Note ---
DATE: 08/20/2018 CARDIOLOGY PROGRESS NOTE SUBJECTIVE: The patient still has high chest tube output as such it cannot be removed. OBJECTIVE: GENERAL: He is in no respiratory distress. Appears comfortable. VITAL SIGNS: Blood pressure 130/81, pulse 63, and respiratory rate 17. LUNGS: Bilateral breath sounds with rhonchi. HEART: Regular rhythm and rate. Normal S1 and S2. ABDOMEN: Soft. G-tube intact. EXTREMITIES: Trace edema. IMPRESSION: 1. Pneumonia with empyema, status post chest tube. 2. Sepsis with shock, recovered. 3. Anemia. 4. Parkinson disease with dementia. 5. Status post respiratory failure. 6. History of deep venous thrombosis. 7. History of adrenocortical insufficiency. PLAN: Chest tube management. Consider discontinuation of anticoagulation with rivaroxaban in view of conservative management strategy and current evidence of superficial venous thrombosis only. Maintain current cardiovascular regimen otherwise without change. Plan is for outpatient hospice noted. Jeremy Fried M.D. DR: RIANA JOB#: [id number] CC:
[2018-08-21 04:00] VITALS: BP 139/82
[2018-08-21] MEDS: Piperacillin/Tazobactam 3.375 GM in D5W 110 ML IVPB SCH ×3 (05:33→21:01)
[2018-08-21] MEDS: NovoLOG Insulin Flexpen SUBQ SCH ×4 (05:35→23:43)
[2018-08-21 08:00] VITALS: BP_SYST 131; BP_SYST 142; BP_DIAS 66; BP_DIAS 80
[2018-08-21] MEDS: Metoprolol Tartrate 50mg tab GT SCH ×2 (08:55→21:00)
[2018-08-21] MEDS: Aspirin Baby 81mg GT SCH (08:56)
[2018-08-21] MEDS: Xarelto 10mg tab ORAL SCH (08:56)
[2018-08-21] MEDS: Donepezil 10mg tab ORAL SCH (08:57)
[2018-08-21] MEDS: Levodopa/Carbidopa 25/100 tab GT SCH ×2 (08:57→17:44)
[2018-08-21 12:00] VITALS: BP 145/72
--- NOTE | 2018-08-21 13:22 | General Surgery Progress Note ---
General Surgery-Progress Note Subjective Procedure Performed left chest tube insertion Additional Comments chest tube output decreasing but still in the 200's. Objective Last 24 Hour Vital Signs Date Time Temp Pulse Resp B/P (MAP) Pulse Ox O2 Delivery O2 Flow Rate FiO2 08/21/18 12:00 97.0 77 19 145/72 (96) 100 97.0 19 08/21/18 08:55 89 142/80 08/21/18 08:30 Nasal Cannula 2.0 08/21/18 08:00 98.4 82 17 131/66 (87) 98 98.4 82 08/21/18 08:00 97.7 89 25 142/80 (100) 98 97.7 89 08/21/18 04:00 97.6 94 21 139/82 (101) 100 97.6 08/21/18 00:00 98.1 90 20 150/76 (100) 100 98.1 08/20/18 21:00 Nasal Cannula 2.0 08/20/18 20:58 80 145/74 08/20/18 20:00 99.0 80 20 145/74 (97) 100 99.0 08/20/18 19:52 Nasal Cannula 2.0 28 08/20/18 19:51 79 18 Nasal Cannula 2.0 28 08/20/18 19:51 97 Nasal Cannula 2.0 28 08/20/18 16:00 98.1 74 18 142/97 (112) 100 98.1 74 I&O Intake and Output 08/20/18 08/21/18 19:00 07:00 Intake Total 1375 ml Output Total 400 ml Balance 1375 ml -400 ml Free Water 1100 ml Tube Feeding 275 ml Output Urine Total 400 ml # Bowel Movements 1 Dressing: dry Wound: other Drains: other Cardiovascular: RSR Respiratory: clear, decreased breath sounds Abdomen: soft, present bowel sounds Extremities: other Plan Problems: (1) Pleural effusion Assessment & Plan: left chest tube functional. CXR stable Chest tube to water seal unfortunately output too high to remove chest tube yet. will monitor can possibly d/c with chest tube if home hospice. otherwise will monitor and d/ c tube as output decreases DNAR / Comfort care thank you Best Cody Aug 21, 2018 13:22
[2018-08-21 16:00] VITALS: BP 135/69
--- NOTE | 2018-08-21 16:38 | Pulmonology Progress Note ---
Assessment/Plan Assessment/Plan 1. Septic shock, resolved 2. Dehydration with azotemia, resolved 3. Left-sided pneumonia and empyema. 4. Respiratory failure, requiring intubation, resolved. 5. Parkinson disease with dementia. 6. History of hemorrhagic stroke. 7. Possible history of DVT. 8. Diastolic dysfunction and LVH. 9. History of adrenocortical insufficiency. 10. Anemia 11. Recurrent seizures Chest tube output 200 cc cannot remove chest tube yet DNR may dc w chest tube to home/hospice add John Subjective ROS Limited/Unobtainable: Yes Neurologic: Reports: seizures Allergies: Coded Allergies: No Known Allergies (Verified , 03/19/15) Objective Last 24 Hour Vital Signs Date Time Temp Pulse Resp B/P (MAP) Pulse Ox O2 Delivery O2 Flow Rate FiO2 08/21/18 12:00 97.0 77 19 145/72 (96) 100 97.0 19 08/21/18 10:10 82 18 Nasal Cannula 2.0 28 08/21/18 10:10 98 2.0 28 08/21/18 10:10 Nasal Cannula 2.0 28 08/21/18 08:55 89 142/80 08/21/18 08:30 Nasal Cannula 2.0 08/21/18 08:00 98.4 82 17 131/66 (87) 98 98.4 82 08/21/18 08:00 97.7 89 25 142/80 (100) 98 97.7 89 08/21/18 04:00 97.6 94 21 139/82 (101) 100 97.6 08/21/18 00:00 98.1 90 20 150/76 (100) 100 98.1 08/20/18 21:00 Nasal Cannula 2.0 08/20/18 20:58 80 145/74 08/20/18 20:00 99.0 80 20 145/74 (97) 100 99.0 08/20/18 19:52 Nasal Cannula 2.0 28 08/20/18 19:51 79 18 Nasal Cannula 2.0 28 08/20/18 19:51 97 Nasal Cannula 2.0 28 Intake and Output 08/20/18 08/21/18 19:00 07:00 Intake Total 1375 ml Output Total 400 ml Balance 1375 ml -400 ml Free Water 1100 ml Tube Feeding 275 ml Output Urine Total 400 ml # Bowel Movements 1 Objective R chest tube on water seal General Appearance: no acute distress Respiratory/Chest: decreased breath sounds Cardiovascular: normal rate Microbiology Date/Time Source Procedure Growth Status 08/20/18 12:00 Stool Clostridium difficile Toxin Assay - Final Complete Current Medications Medications (Trade) Dose Ordered Sig/Eloy Route PRN Reason Start Time Stop Time Status Last Admin Dose Admin Acetaminophen (Tylenol) 650 mg Q4H PRN ORAL Mild Pain (Pain Scale 1-3) 08/16/18 17:30 09/08/18 17:29 Aspirin (ASA) 81 mg DAILY GT 08/17/18 09:00 09/08/18 08:59 08/21/18 08:56 Atorvastatin Calcium (Lipitor) 10 mg BEDTIME ORAL 08/16/18 21:00 09/08/18 20:59 08/20/18 20:57 Carbidopa/Levodopa (Sinemet 25/100) 1 tab BID GT 08/16/18 18:00 09/06/18 17:59 08/21/18 08:57 Chlorhexidine Gluconate (Bee-Hex 2%) 1 applic DAILY@2000 TOPIC 08/16/18 20:00 09/08/18 19:59 08/19/18 23:00 Dextrose (Dextrose 50%) 25 ml Q1H PRN IV Hypoglycemia 08/16/18 17:30 09/15/18 17:29 Dextrose (Dextrose 50%) 50 ml Q1H PRN IV Hypoglycemia 08/16/18 17:30 09/15/18 17:29 Donepezil HCl (Aricept) 10 mg DAILY ORAL 08/17/18 09:00 09/08/18 08:59 08/21/18 08:57 Famotidine (Pepcid) 20 mg BID ORAL 08/16/18 18:00 09/15/18 17:59 08/21/18 08:56 Finasteride (Proscar) 5 mg DAILY ORAL 08/17/18 09:00 09/08/18 08:59 08/21/18 08:56 Fludrocortisone Acetate (Florinef) 0.1 mg DAILY ORAL 08/17/18 09:00 09/08/18 08:59 08/21/18 08:54 Insulin Aspart (NovoLOG) EVERY 6 HOURS SUBQ 08/16/18 18:00 09/06/18 11:29 08/21/18 11:59 Levetiracetam (Keppra) 750 mg Q12HR GT 08/21/18 21:00 09/20/18 20:59 Metoprolol Tartrate (Lopressor) 50 mg Q12HR GT 08/16/18 21:00 09/09/18 20:59 08/21/18 08:55 Morphine Sulfate (Morphine Sulfate) 2 mg Q3H PRN IVP For Pain 08/16/18 17:30 08/22/18 20:29 Multivitamins (Multivitamins) 1 tab DAILY ORAL 08/17/18 09:00 09/08/18 08:59 08/21/18 08:54 Piperacillin Sod/ Tazobactam Sod 3.375 gm/Dextrose 110 ml @ 27.5 mls/hr EVERY 8 HOURS IVPB 08/20/18 20:00 08/25/18 19:59 08/21/18 13:20 Quetiapine Fumarate (SEROquel) 25 mg DAILY ORAL 08/17/18 09:00 09/08/18 08:59 08/21/18 08:54 Rivaroxaban (Xarelto) 20 mg DAILY ORAL 08/17/18 09:00 09/09/18 08:59 08/21/18 08:56 Tamsulosin HCl (Flomax) 0.4 mg BEDTIME ORAL 08/16/18 21:00 09/08/18 20:59 08/20/18 20:58 Harjeet Baptiste MD Aug 21, 2018 16:38
[2018-08-21 20:00] VITALS: BP 148/70
[2018-08-21] MEDS: Dyna-Hex 2% Top Sol 2oz TOPIC SCH (20:59)
[2018-08-21] MEDS: levETIRAcetam 500mg/5ml Liquid GT SCH (21:00)
[2018-08-21] MEDS: Tamsulosin 0.4mg cap ORAL SCH (21:00)
[2018-08-22] VITALS: BP 145/71
[2018-08-22 03:48] VITALS: BP 148/69
--- NOTE | 2018-08-22 04:15 | Progress Note ---
DATE: 08/21/2018 CARDIOLOGY PROGRESS NOTE SUBJECTIVE: Chest tube is remaining in place due to continued high output. The patient is without any respiratory distress. OBJECTIVE: VITAL SIGNS: Blood pressure 145/72, pulse 77, and respiratory rate 19. LUNGS: Bilateral breath sounds. Rhonchi at the left. HEART: Regular rhythm and rate. Normal S1, S2. ABDOMEN: Soft. G-tube intact. EXTREMITIES: Trace edema. IMPRESSION: 1. Sepsis with shock, recovered. 2. Dehydration and hypovolemia, resolved. 3. Pneumonia with empyema status post chest tube with ongoing drainage. 4. Cerebrovascular disease with dementia and prior hemorrhagic stroke. 5. History of deep venous thrombosis, on anticoagulation. 6. Adrenocortical insufficiency. 7. Dysphagia with G-tube. PLAN: 1. Would consider discontinuing rivaroxaban in favor of subcutaneous heparin for subacute DVT. 2. Chest tube management per surgeon. 3. Nutrition by feeding tube. 4. Maintain current cardiovascular regimen. 5. Hospice care plan is anticipated. Jeremy Fried M.D. DR: INÉS JOB#: [id number] CC:
[2018-08-22] MEDS: NovoLOG Insulin Flexpen SUBQ SCH ×4 (05:13→23:33)
[2018-08-22] MEDS: Piperacillin/Tazobactam 3.375 GM in D5W 110 ML IVPB SCH ×3 (05:15→21:03)
[2018-08-22 08:00] VITALS: BP 140/72
[2018-08-22] MEDS: Levodopa/Carbidopa 25/100 tab GT SCH ×2 (09:17→17:51)
[2018-08-22] MEDS: Aspirin Baby 81mg GT SCH (09:17)
[2018-08-22] MEDS: Metoprolol Tartrate 50mg tab GT SCH ×2 (09:17→20:53)
[2018-08-22] MEDS: levETIRAcetam 500mg/5ml Liquid GT SCH ×2 (09:17→20:53)
[2018-08-22] MEDS: Xarelto 10mg tab ORAL SCH (09:18)
[2018-08-22] MEDS: Donepezil 10mg tab ORAL SCH (09:18)
[2018-08-22 12:00] VITALS: BP 135/77
--- NOTE | 2018-08-22 15:58 | Pulmonology Progress Note ---
Assessment/Plan Assessment/Plan 1. Septic shock, resolved 2. Dehydration with azotemia, resolved 3. Left-sided pneumonia and empyema. 4. Respiratory failure, requiring intubation, resolved. 5. Parkinson disease with dementia. 6. History of hemorrhagic stroke. 7. Possible history of DVT. 8. Diastolic dysfunction and LVH. 9. History of adrenocortical insufficiency. 10. Anemia 11. Recurrent seizures Chest tube output less discussed with surgery will remove chest tube DNR no seizures plan dc tomorrow on hospice Subjective ROS Limited/Unobtainable: Yes Allergies: Coded Allergies: No Known Allergies (Verified , 03/19/15) Objective Last 24 Hour Vital Signs Date Time Temp Pulse Resp B/P (MAP) Pulse Ox O2 Delivery O2 Flow Rate FiO2 08/22/18 12:00 98.1 82 19 135/77 (96) 98 98.1 82 08/22/18 09:17 88 140/72 08/22/18 08:45 Nasal Cannula 2.0 08/22/18 08:31 98 Nasal Cannula 2.0 28 08/22/18 08:31 Nasal Cannula 2.0 28 08/22/18 08:30 81 20 Nasal Cannula 2.0 28 08/22/18 08:00 98.3 88 20 140/72 (94) 99 98.3 88 08/22/18 03:48 98.1 87 22 148/69 (95) 100 98.1 87 08/22/18 00:00 98.7 81 20 145/71 (95) 100 98.7 81 08/21/18 21:00 Nasal Cannula 2.0 08/21/18 21:00 95 148/70 08/21/18 20:00 98 Nasal Cannula 2.0 28 08/21/18 20:00 Nasal Cannula 2.0 28 08/21/18 20:00 99.2 95 20 148/70 (96) 99 99.2 95 08/21/18 19:30 90 18 Nasal Cannula 2.0 28 08/21/18 16:00 95.5 83 22 135/69 (91) 99 95.5 Intake and Output 08/21/18 08/22/18 19:00 07:00 Intake Total 585 ml 537.5 ml Output Total 360 ml Balance 585 ml 177.5 ml Free Water 200 ml 100 ml IV Total 110 ml 137.5 ml Tube Feeding 275 ml 300 ml Output Urine Total 140 ml Chest Tube Drainage Total 220 ml Objective R chest tube on water seal General Appearance: no acute distress HEENT: atraumatic Respiratory/Chest: decreased breath sounds Cardiovascular: normal rate Microbiology Date/Time Source Procedure Growth Status 08/20/18 12:00 Stool Clostridium difficile Toxin Assay - Final Complete Current Medications Medications (Trade) Dose Ordered Sig/Eloy Route PRN Reason Start Time Stop Time Status Last Admin Dose Admin Acetaminophen (Tylenol) 650 mg Q4H PRN ORAL Mild Pain (Pain Scale 1-3) 08/16/18 17:30 09/08/18 17:29 Aspirin (ASA) 81 mg DAILY GT 08/17/18 09:00 09/08/18 08:59 08/22/18 09:17 Atorvastatin Calcium (Lipitor) 10 mg BEDTIME ORAL 08/16/18 21:00 09/08/18 20:59 08/21/18 20:59 Carbidopa/Levodopa (Sinemet 25/100) 1 tab BID GT 08/16/18 18:00 09/06/18 17:59 08/22/18 09:17 Chlorhexidine Gluconate (Bee-Hex 2%) 1 applic DAILY@2000 TOPIC 08/16/18 20:00 09/08/18 19:59 08/21/18 20:59 Dextrose (Dextrose 50%) 25 ml Q1H PRN IV Hypoglycemia 08/16/18 17:30 09/15/18 17:29 Dextrose (Dextrose 50%) 50 ml Q1H PRN IV Hypoglycemia 08/16/18 17:30 09/15/18 17:29 Donepezil HCl (Aricept) 10 mg DAILY ORAL 08/17/18 09:00 09/08/18 08:59 08/22/18 09:18 Famotidine (Pepcid) 20 mg BID ORAL 08/16/18 18:00 09/15/18 17:59 08/22/18 09:18 Finasteride (Proscar) 5 mg DAILY ORAL 08/17/18 09:00 09/08/18 08:59 08/22/18 09:17 Fludrocortisone Acetate (Florinef) 0.1 mg DAILY ORAL 08/17/18 09:00 09/08/18 08:59 08/22/18 09:18 Insulin Aspart (NovoLOG) EVERY 6 HOURS SUBQ 08/16/18 18:00 09/06/18 11:29 08/22/18 13:58 Levetiracetam (Keppra) 750 mg Q12HR GT 08/21/18 21:00 09/20/18 20:59 08/22/18 09:17 Metoprolol Tartrate (Lopressor) 50 mg Q12HR GT 08/16/18 21:00 09/09/18 20:59 08/22/18 09:17 Morphine Sulfate (Morphine Sulfate) 2 mg Q3H PRN IVP For Pain 08/16/18 17:30 08/22/18 20:29 Multivitamins (Multivitamins) 1 tab DAILY ORAL 08/17/18 09:00 09/08/18 08:59 08/22/18 09:18 Piperacillin Sod/ Tazobactam Sod 3.375 gm/Dextrose 110 ml @ 27.5 mls/hr EVERY 8 HOURS IVPB 08/20/18 20:00 08/25/18 19:59 08/22/18 14:04 Quetiapine Fumarate (SEROquel) 25 mg DAILY ORAL 08/17/18 09:00 09/08/18 08:59 08/22/18 09:17 Rivaroxaban (Xarelto) 20 mg DAILY ORAL 08/17/18 09:00 09/09/18 08:59 08/22/18 09:18 Tamsulosin HCl (Flomax) 0.4 mg BEDTIME ORAL 08/16/18 21:00 09/08/18 20:59 08/21/18 21:00 Hajreet Baptiste MD Aug 22, 2018 15:58
[2018-08-22 16:00] VITALS: BP 147/70
--- NOTE | 2018-08-22 16:58 | General Surgery Progress Note ---
General Surgery-Progress Note Subjective Procedure Performed left chest tube insertion Additional Comments chest tube output decreasing. 200cc/24hrs Objective Last 24 Hour Vital Signs Date Time Temp Pulse Resp B/P (MAP) Pulse Ox O2 Delivery O2 Flow Rate FiO2 08/22/18 12:00 98.1 82 19 135/77 (96) 98 98.1 82 08/22/18 09:17 88 140/72 08/22/18 08:45 Nasal Cannula 2.0 08/22/18 08:31 98 Nasal Cannula 2.0 28 08/22/18 08:31 Nasal Cannula 2.0 28 08/22/18 08:30 81 20 Nasal Cannula 2.0 28 08/22/18 08:00 98.3 88 20 140/72 (94) 99 98.3 88 08/22/18 03:48 98.1 87 22 148/69 (95) 100 98.1 87 08/22/18 00:00 98.7 81 20 145/71 (95) 100 98.7 81 08/21/18 21:00 Nasal Cannula 2.0 08/21/18 21:00 95 148/70 08/21/18 20:00 98 Nasal Cannula 2.0 28 08/21/18 20:00 Nasal Cannula 2.0 28 08/21/18 20:00 99.2 95 20 148/70 (96) 99 99.2 95 08/21/18 19:30 90 18 Nasal Cannula 2.0 28 I&O Intake and Output 08/21/18 08/22/18 19:00 07:00 Intake Total 585 ml 537.5 ml Output Total 360 ml Balance 585 ml 177.5 ml Free Water 200 ml 100 ml IV Total 110 ml 137.5 ml Tube Feeding 275 ml 300 ml Output Urine Total 140 ml Chest Tube Drainage Total 220 ml Dressing: saturated Wound: clean Drains: other Cardiovascular: RSR Respiratory: clear, decreased breath sounds Abdomen: soft, non-tender, present bowel sounds Extremities: other Plan Problems: (1) Pleural effusion Assessment & Plan: left chest tube functional. CXR stable Chest tube to water seal chest tube removed at bedside. d/c planning DNAR / Comfort care thank you Best Cody Aug 22, 2018 16:58
[2018-08-22 20:00] VITALS: BP 142/72
[2018-08-22] MEDS: Dyna-Hex 2% Top Sol 2oz TOPIC SCH (20:52)
[2018-08-22] MEDS: Tamsulosin 0.4mg cap ORAL SCH (20:53)
[2018-08-23] VITALS: BP 120/55
--- NOTE | 2018-08-23 01:00 | Progress Note ---
DATE: 08/22/2018 CARDIOLOGY PROGRESS NOTE SUBJECTIVE: The patient has no chest pain, no shortness of breath. Chest tube leak drainage is decreased and tube is to be removed. PHYSICAL EXAMINATION: VITAL SIGNS: Blood pressure 140/70, pulse 88, respirations 20, and oxygen saturation on 2 liters 98% to 100%. LUNGS: Rhonchi at the left. HEART: Regular rhythm and rate. Normal S1 and S2. ABDOMEN: Soft. G-tube intact. EXTREMITIES: Trace edema. NEUROLOGIC: Poorly interactive. IMPRESSION: 1. Status post septic shock. 2. Status post dehydration with hypovolemia and azotemia. 3. Left-sided pneumonia with empyema which is status post chest tube. 4. Respiratory failure, requiring intubation, now recovered with stable respiratory parameters. 5. Parkinson disease with advanced dementia. 6. History of hemorrhagic stroke. 7. History of DVT now with superficial DVT only, remaining on anticoagulation. PLAN: 1. Chest tube removal. 2. Long-term care to include hospice. 3. We would consider discontinuing rivaroxaban in view of increased risk to benefit ratio in this setting. Jeremy Fried M.D. DR: Katy JOB#: [id number] CC:
[2018-08-23 04:00] VITALS: BP 131/66
[2018-08-23] MEDS: NovoLOG Insulin Flexpen SUBQ SCH ×2 (06:00→12:47)
[2018-08-23] MEDS: Piperacillin/Tazobactam 3.375 GM in D5W 110 ML IVPB SCH ×2 (06:02→13:01)
[2018-08-23 08:00] VITALS: BP 129/69
[2018-08-23] MEDS: Donepezil 10mg tab ORAL SCH (09:25)
[2018-08-23] MEDS: Aspirin Baby 81mg GT SCH (09:25)
[2018-08-23] MEDS: Levodopa/Carbidopa 25/100 tab GT SCH (09:25)
[2018-08-23] MEDS: levETIRAcetam 500mg/5ml Liquid GT SCH (09:26)
[2018-08-23] MEDS: Metoprolol Tartrate 50mg tab GT SCH (09:26)
[2018-08-23] MEDS: Xarelto 10mg tab ORAL SCH (09:27)
--- NOTE | 2018-08-23 10:08 | Diagnostic Imaging Report ---
Indication: Cough Technique: One view of the chest Comparison: 08/18/2018 Findings: Interim removal of previously demonstrated left chest tube. Interim increased opacity left hemithorax, now nearly completely opacified, with occasional scattered gas bubbles. Right lung and pleural space are clear, there appears to be decreased congestion. Left arm PICC remains. Impression: Interim chest tube removal on the left, with interim near complete opacification of the left hemithorax likely reflecting increased pleural fluid, over 5 days Slightly improved interstitial congestion on the right Findings discussed by phone with Dr. Baptiste at the time of interpretation
[2018-08-23 12:00] VITALS: BP 125/72
[2018-08-23] MEDS ORDERED: VANCOMYCIN HCL125 MG PO (14:18)
[2018-08-23] MEDS ORDERED: LEVAQUIN500 MG ORAL (14:18)
[2018-08-23] MEDS ORDERED: KEPPRA LIQ100 MG/1 M GT (14:18)
--- NOTE | 2018-08-23 14:22 | Pulmonology Progress Note ---
Assessment/Plan Assessment/Plan 1. Septic shock, resolved 2. Dehydration with azotemia, resolved 3. Left-sided pneumonia and empyema. 4. Respiratory failure, requiring intubation, resolved. 5. Parkinson disease with dementia. 6. History of hemorrhagic stroke. 7. Possible history of DVT. 8. Diastolic dysfunction and LVH. 9. History of adrenocortical insufficiency. 10. Anemia 11. Recurrent seizures Chest tube removed no seizures CXR L effusion/infiltrate diarrhea, check c diff, start vanco dc on hospice meds reconciled for dc; dc unneeded DNR plan dc on hospice prognosis very poor disc w RN and son, consultants Subjective ROS Limited/Unobtainable: Yes Allergies: Coded Allergies: No Known Allergies (Verified , 03/19/15) Objective Last 24 Hour Vital Signs Date Time Temp Pulse Resp B/P (MAP) Pulse Ox O2 Delivery O2 Flow Rate FiO2 08/23/18 12:00 97.8 92 18 125/72 (89) 97 97.8 92 08/23/18 10:11 Nasal Cannula 2.0 08/23/18 09:26 93 129/69 08/23/18 08:39 Nasal Cannula 2.0 08/23/18 08:37 95 Nasal Cannula 2.0 08/23/18 08:36 90 20 Nasal Cannula 2.0 08/23/18 08:30 Nasal Cannula 2.0 08/23/18 08:00 97.3 93 18 129/69 (89) 96 97.3 93 08/23/18 04:00 97.6 91 18 131/66 (87) 97 97.6 08/23/18 00:00 97.5 72 18 120/55 (76) 100 97.5 08/22/18 21:00 Nasal Cannula 2.0 08/22/18 20:53 82 142/72 08/22/18 20:28 Nasal Cannula 2.0 28 08/22/18 20:27 99 Nasal Cannula 2.0 28 08/22/18 20:27 82 18 Nasal Cannula 2.0 28 08/22/18 20:00 98.5 81 18 142/72 (95) 99 98.5 08/22/18 16:00 97.9 80 18 147/70 (95) 100 97.9 80 Intake and Output 08/22/18 08/23/18 19:00 07:00 Intake Total 500 ml 370.0 ml Output Total 180 ml 750 ml Balance 320 ml -380.0 ml Free Water 200 ml 110 ml IV Total 110.0 ml Tube Feeding 300 ml 150 ml Output Urine Total 750 ml Chest Tube Drainage Total 180 ml Objective R chest tube on water seal Current Medications Medications (Trade) Dose Ordered Sig/Eloy Route PRN Reason Start Time Stop Time Status Last Admin Dose Admin Acetaminophen (Tylenol) 650 mg Q4H PRN ORAL Mild Pain (Pain Scale 1-3) 08/16/18 17:30 09/08/18 17:29 Aspirin (ASA) 81 mg DAILY GT 08/17/18 09:00 09/08/18 08:59 08/23/18 09:25 Atorvastatin Calcium (Lipitor) 10 mg BEDTIME ORAL 08/16/18 21:00 09/08/18 20:59 08/22/18 20:53 Carbidopa/Levodopa (Sinemet 25/100) 1 tab BID GT 08/16/18 18:00 09/06/18 17:59 08/23/18 09:25 Chlorhexidine Gluconate (Bee-Hex 2%) 1 applic DAILY@1999 TOPIC 08/16/18 20:00 09/08/18 19:59 08/22/18 20:52 Dextrose (Dextrose 50%) 25 ml Q1H PRN IV Hypoglycemia 08/16/18 17:30 09/15/18 17:29 Dextrose (Dextrose 50%) 50 ml Q1H PRN IV Hypoglycemia 08/16/18 17:30 09/15/18 17:29 Donepezil HCl (Aricept) 10 mg DAILY ORAL 08/17/18 09:00 09/08/18 08:59 08/23/18 09:25 Famotidine (Pepcid) 20 mg BID ORAL 08/16/18 18:00 09/15/18 17:59 08/23/18 09:26 Finasteride (Proscar) 5 mg DAILY ORAL 08/17/18 09:00 09/08/18 08:59 08/23/18 09:26 Fludrocortisone Acetate (Florinef) 0.1 mg DAILY ORAL 08/17/18 09:00 09/08/18 08:59 08/23/18 09:25 Insulin Aspart (NovoLOG) EVERY 6 HOURS SUBQ 08/16/18 18:00 09/06/18 11:29 08/23/18 12:47 Levetiracetam (Keppra) 750 mg Q12HR GT 08/21/18 21:00 09/20/18 20:59 08/23/18 09:26 Metoprolol Tartrate (Lopressor) 50 mg Q12HR GT 08/16/18 21:00 09/09/18 20:59 08/23/18 09:26 Multivitamins (Multivitamins) 1 tab DAILY ORAL 08/17/18 09:00 09/08/18 08:59 08/23/18 09:25 Piperacillin Sod/ Tazobactam Sod 3.375 gm/Dextrose 110 ml @ 27.5 mls/hr EVERY 8 HOURS IVPB 08/20/18 20:00 08/25/18 19:59 08/23/18 13:01 Quetiapine Fumarate (SEROquel) 25 mg DAILY ORAL 08/17/18 09:00 09/08/18 08:59 08/23/18 09:26 Rivaroxaban (Xarelto) 20 mg DAILY ORAL 08/17/18 09:00 09/09/18 08:59 08/23/18 09:27 Tamsulosin HCl (Flomax) 0.4 mg BEDTIME ORAL 08/16/18 21:00 09/08/18 20:59 08/22/18 20:53 Harjeet Baptiste MD Aug 23, 2018 14:22
[2018-08-23] MEDS ORDERED: Levofloxacin 500mg tab ORAL SCH (14:28)
[2018-08-23] MEDS ORDERED: Vancomycin oral 125mg/2.5ml ORAL SCH (14:30)
--- NOTE | 2018-08-23 14:51 | General Surgery Progress Note ---
General Surgery-Progress Note Subjective Procedure Performed left chest tube insertion Additional Comments no acute events. chest tube out. some saturation of dressings. stable. Objective Last 24 Hour Vital Signs Date Time Temp Pulse Resp B/P (MAP) Pulse Ox O2 Delivery O2 Flow Rate FiO2 08/23/18 12:00 97.8 92 18 125/72 (89) 97 97.8 92 08/23/18 10:11 Nasal Cannula 2.0 08/23/18 09:26 93 129/69 08/23/18 08:39 Nasal Cannula 2.0 08/23/18 08:37 95 Nasal Cannula 2.0 08/23/18 08:36 90 20 Nasal Cannula 2.0 08/23/18 08:30 Nasal Cannula 2.0 08/23/18 08:00 97.3 93 18 129/69 (89) 96 97.3 93 08/23/18 04:00 97.6 91 18 131/66 (87) 97 97.6 08/23/18 00:00 97.5 72 18 120/55 (76) 100 97.5 08/22/18 21:00 Nasal Cannula 2.0 08/22/18 20:53 82 142/72 08/22/18 20:28 Nasal Cannula 2.0 28 08/22/18 20:27 99 Nasal Cannula 2.0 08/22/18 20:27 82 18 Nasal Cannula 2.0 08/22/18 20:00 98.5 81 18 142/72 (95) 99 98.5 08/22/18 16:00 97.9 80 18 147/70 (95) 100 97.9 80 I&O Intake and Output 08/22/18 08/23/18 19:00 07:00 Intake Total 500 ml 370.0 ml Output Total 180 ml 750 ml Balance 320 ml -380.0 ml Free Water 200 ml 110 ml IV Total 110.0 ml Tube Feeding 300 ml 150 ml Output Urine Total 750 ml Chest Tube Drainage Total 180 ml Dressing: saturated Wound: clean Drains: other Cardiovascular: RSR Respiratory: decreased breath sounds Abdomen: soft, present bowel sounds Extremities: other Plan Problems: (1) Pleural effusion Assessment & Plan: chest tube removed as output decreasing and at appropriate level for removal. CXR with left side opacification. unlikely to have had that much accumulate since tube removal given output levels prior to tube removal. likely may have loculated fluid collections that have formed; possible infiltrate. findings discussed with patients family at bedside. goals of care discussed. given overall healthy and prognosis / plans for hospice care no further imaging or procedures planned at this time. Patient is saturating fine and in no distress. his overall condition is unfortunately poor with poor prognosis. family expresses desire for comfort and dignity during end of life care plan. d/c planning DNAR / Comfort care thank you Best Cody Aug 23, 2018 14:51
[2018-08-23] MEDS ORDERED: NS 275ml ONE (17:02)
[2018-08-23] MEDS ORDERED: Tubing IV Secondary IV ONE (17:02)
[2018-08-23] MEDS ORDERED: NS 500ML ONE (17:02)
--- NOTE | 2018-08-23 22:21 | General Progress Note ---
Assessment/Plan Assessment/Plan GI Consult Patient seen. Chart reviewed GT changed and care discussed with RN Thank you Colt De La Cruz MD Subjective Allergies: Coded Allergies: No Known Allergies (Verified , 03/19/15) Objective Last 24 Hour Vital Signs Date Time Temp Pulse Resp B/P (MAP) Pulse Ox O2 Delivery O2 Flow Rate FiO2 08/23/18 12:00 97.8 92 18 125/72 (89) 97 97.8 92 08/23/18 10:11 Nasal Cannula 2.0 08/23/18 09:26 93 129/69 08/23/18 08:39 Nasal Cannula 2.0 08/23/18 08:37 95 Nasal Cannula 2.0 08/23/18 08:36 90 20 Nasal Cannula 2.0 08/23/18 08:30 Nasal Cannula 2.0 08/23/18 08:00 97.3 93 18 129/69 (89) 96 97.3 93 08/23/18 04:00 97.6 91 18 131/66 (87) 97 97.6 08/23/18 00:00 97.5 72 18 120/55 (76) 100 97.5 Intake and Output 08/22/18 08/23/18 19:00 07:00 Intake Total 500 ml 370.0 ml Output Total 180 ml 750 ml Balance 320 ml -380.0 ml Free Water 200 ml 110 ml IV Total 110.0 ml Tube Feeding 300 ml 150 ml Output Urine Total 750 ml Chest Tube Drainage Total 180 ml Height (Feet): 5 Height (Inches): 5.00 Weight (Pounds): 167 Redd De La Cruz MD Aug 23, 2018 22:21
--- NOTE | 2018-08-24 03:30 | Progress Note ---
DATE: 08/23/2018 CARDIOLOGY PROGRESS NOTE SUBJECTIVE: Case was discussed with the patient's primary care physician. Discharge plan reviewed and reconciled including medication. OBJECTIVE: GENERAL: The patient is in no respiratory distress. VITAL SIGNS: Blood pressure 129/69, pule 93, and respiratory rate 20. The patient is afebrile. LUNGS: Chest tube has been removed. Few rhonchi on the left. HEART: Regular rhythm and rate. Normal S1 and S2. ABDOMEN: Soft. G-tube intact. EXTREMITIES: No edema. NEUROLOGIC: Moderate cognitive impairment. PLAN: The patient is stable for outpatient care. The patient's discharge medication regimen has been reviewed. The discharge plan of care was discussed in detail with family members and Dr. Baptiste. No additional cardiovascular workup is anticipated at this time. Jeremy Fried M.D. DR: RIANA JOB#: [id number] CC:
--- NOTE | 2018-08-26 10:11 | Discharge Summary ---
Discharge Summary Discharge Summary _ DATE OF ADMISSION: 08/06/2018 DATE OF DISCHARGE: 08/23/2018 REASON FOR ADMISSION: 82 years old male with past medical history of Alzheimer dementia , hemorrhagic stroke, Parkinson disease, laryngeal cancer ,dysphagia, G-tube, history of DVT, was brought from home by his son for evaluation. Patient apparently was less responsive, vomited feeding . Upon evaluation patient noted to be febrile, tachycardic , tachypneic ,and hypotensive with blood pressure 83/55. Patient also was hypoxic initially, required supplemental oxygen and thereafter BiPAP. Laboratory workup revealed significant leukocytosis WBC 21.5. BUN 43 creatinine 1.7 . Lactic acid 6.7 . Troponin negative. ECG no acute ischemic changes, Urinalysis with possible evidence of UTI . Chest x-ray with evidence of large left pleural effusion and left-sided pneumonia. Abdominal x-ray revealed G-tube in proper place, no acute process. Patient subsequently was admitted with diagnoses of severe sepsis with septic shock, left-sided pneumonia, large left pleural effusion, possible UTI, acute kidney injury, lactic acidosis, Parkinson disease with dementia, history of hemorrhagic stroke, left ventricular hypertrophy and diastolic dysfunction, history of adrenocortical insufficiency, history of DVT. CONSULTANTS: procurement manager GI specialist [facility]SE: Patient admitted and started on intravenous hydration. Blood pressure stabilized without addition of vasopressor. Patient started on empiric antibiotics. Patient subsequently undergone thoracentesis on 08/07 which yielded 1.1 L of pleural fluid. Culture of pleural fluid was negative. Pathology of pleural fluid revealed no evidence of malignant cells . Chest x-ray post thoracentesis revealed only slightly decreased left pleural effusion. CT of the chest subsequently was done and revealed large left pleural effusion occupying half of the left hemithorax , despite recent large-volume thoracentesis. Suggesting that pleural fluid may be loculated. Surgery consult was requested . Patient subsequently undergone on 08/12 left chest tube insertion for large left pleural effusion,possible empyema. Output of chest tube was closely monitored ; and patient was followed up with a daily chest xray. Supplemental oxygen titrated to keep pulse oximetry above 92%. Pulmonary toilet provided. Sat Tutor closely followed. Serial troponin times for were negative. EKG revealed no acute ischemic changes. Patient was ruled out for acute AK. Venous duplex bilateral lower extremity revealed no evidence of acute DVT but showed chronic thrombus in supposed superficial femoral vein right lower extremity. Patient initially was on full anticoagulation with Xarelto, which subsequently discontinue , and patient started on DVT prophylaxis with subcutaneous heparin as per procurement manager recommendations. Patient required oral intubation on 08/13 for after mental status and respiratory failure. Ventilator support provided. Pulmonary toilet provided. patietn was able to be weaned on 08/15. Supplemental oxygen provided along with pulmonary toeitl. patietn required racemic epinephrtice gor inspirtaory stridor, resolved,. Blood culture were negative, urine culture were negative ,stool for C. difficile was negative , pleural fluid culture was negative. Leukocytosis trended down. Fevers resolved. Lactic acid from 6.7 initial down to 1.0. Renal parameters electrolytes were closely monitored. Electrolytes corrected as needed. Nephrotoxic were avoided. Acute kidney injury, precipitated by dehydration , resolved. Home medications were continued, including medication for Parkinson disease, BPH and adrenocorticosteroid . DVT GI prophylaxis provided. Blood sugar was managed with sliding scale of insulin. Hemoglobin and hematocrit were closely monitored with goal to keep hemoglobin above 7. Bowel regimen instituted. Supportive care provided. Pain management was addressed as needed. G-tube was changed at the bedside on 08/22 by GI specialist. Strict aspiration /reflux precautions were maintained. G-tube feeding continued. G-tube site care provided. Patient continued to have high chest tube output . Patient with DNR/DNI status , and family decided on hospice care, after patient ready for discharge. Subsequently chest tube output was trending down, and on 08/22 chest tube was removed at the bedside by surgeon. Patient was discharged home with hospice services for end-of-life care. FINAL DIAGNOSES: Severe sepsis with shock- resolved Left-sided pneumonia with loculated pleural effusion Left pleural effusion, status post thoracentesis-1.1 L Empyema Status post chest tube placement 08/12 ( removed [id number] for end-of-life care) Acute kidney injury secondary to dehydration - resolved Acute respiratory failure , requiring intubation 08/13 ( s/p extubation 08/15) Lactic acidosis-resolved Diastolic dysfunction and LVH Toxic and metabolic encephalopathy Dysphagia, G tube, s/p replacement Hypertensive heart disease Diabetes mellitus, type 2 Electrolyte imbalance History of adrenocortical insufficiency History of hemorrhagic stroke Parkinson disease with dementia History of DVT Anemia, multifactorial DISCHARGE MEDICATIONS: See Medication Reconciliation list. DISCHARGE INSTRUCTIONS: Patient was discharged home with hospice services I have been assigned to dictate discharge summary for this account. I was not involved in the patient's management. Aleshia Castaneda NP Aug 26, 2018 10:11
== END 2018-08-23 17:03 | disposition hospice, home (50) | DRG 871 ==
LOC: EMR 16:28 → ICU 17:50 → EDBEDREQ 18:38 → ICU 20:24 → 2W 08-09 02:25 → ICU 08-12 09:48 → 4E 08-16 17:22
PROC: 0W9B3ZZ Drainage of Left Pleural Cavity, Percutaneous Approach (ICD-10-PCS; principal; 2018-08-07)
PROC: B548ZZA Ultrasonography of Superior Vena Cava, Guidance (ICD-10-PCS; 2018-08-09)
PROC: 02HV33Z Insertion of Infusion Device into Superior Vena Cava, Percutaneous Approach (ICD-10-PCS; 2018-08-09)
PROC: 0W9B30Z Drainage of Left Pleural Cavity with Drainage Device, Percutaneous Approach (ICD-10-PCS; 2018-08-12)
PROC: 5A1945Z Respiratory Ventilation, 24-96 Consecutive Hours (ICD-10-PCS; 2018-08-12)
PROC: 0BH17EZ Insertion of Endotracheal Airway into Trachea, Via Natural or Artificial Opening (ICD-10-PCS; 2018-08-12)
DX: A41.9 Sepsis, unspecified organism (principal); R65.21 Severe sepsis with septic shock; J18.9 Pneumonia, unspecified organism; J96.01 Acute respiratory failure with hypoxia; I50.33 Acute on chronic diastolic (congestive) heart failure; G92 Toxic encephalopathy; J86.9 Pyothorax without fistula; E43 Unspecified severe protein-calorie malnutrition; J90 Pleural effusion, not elsewhere classified; N17.9 Acute kidney failure, unspecified; N39.0 Urinary tract infection, site not specified; D68.8 Other specified coagulation defects; E87.3 Alkalosis; E87.0 Hyperosmolality and hypernatremia; G20 Parkinson's disease; F02.80 Dementia in other diseases classified elsewhere, unspecified severity, without behavioral disturbance, psychotic disturbance, mood disturbance, and anxiety; Z85.21 Personal history of malignant neoplasm of larynx; Z93.1 Gastrostomy status; R13.10 Dysphagia, unspecified; Z86.73 Personal history of transient ischemic attack (TIA), and cerebral infarction without residual deficits; E78.5 Hyperlipidemia, unspecified; N40.0 Benign prostatic hyperplasia without lower urinary tract symptoms; I11.0 Hypertensive heart disease with heart failure; E86.0 Dehydration; Z66 Do not resuscitate; Z51.5 Encounter for palliative care; E87.8 Other disorders of electrolyte and fluid balance, not elsewhere classified; E87.5 Hyperkalemia; E87.6 Hypokalemia; E11.65 Type 2 diabetes mellitus with hyperglycemia; Z68.27 Body mass index [BMI] 27.0-27.9, adult; G40.909 Epilepsy, unspecified, not intractable, without status epilepticus; G31.84 Mild cognitive impairment of uncertain or unknown etiology; D64.9 Anemia, unspecified; Z86.718 Personal history of other venous thrombosis and embolism; Z79.01 Long term (current) use of anticoagulants
CPT/HCPCS: 36415; 36569; 36600; 71045; 71250; 74019; 76937; 76942; 80048; 80053; 80202; 81003; 82550; 82553; 82607; 82746; 82803; 82962; 83605; 83735; 83880; 84443; 84484; 85007; 85025; 85610; 85730; 87040; 87070; 87081; 87086; 87205; 87324; 88104; 89050; 89051; 93005; 93970; 94002; 94003; 94640; 94660; 94664; 94760; 96361; 96365; 99285; J1815; J7620; J8499